=== PATIENT | female | born 1965 ===

== ENCOUNTER 2020-09-24 12:29 | Outpatient (REF) | payer OTHER, SELFPAY ==
--- NOTE | 2020-09-24 12:35 | MM_ITS ---
EXAMINATION: MM SCREENING DIGITAL BREAST TOMOSYNTHESIS, BILATERAL CLINICAL INFORMATION: Screening. Asymptomatic. The lifetime risk of breast cancer based on the Tyrer-Cuzick Model is 7%. COMPARISON: Mammography: 02/05/2019, 02/13/2017, 03/13/2015 TECHNIQUE: Digital breast tomosynthesis is performed in both the craniocaudal and mediolateral oblique views along with computer-aided detection (CAD). Synthesized 2D images are generated from the tomosynthesis. FINDINGS: There are scattered areas of fibroglandular density (ACR BI-RADS breast composition Category b). The right breast is unremarkable. There is no interval mass or architectural abnormality. Neither breast shows abnormal calcifications. The bilateral axilla and skin contours are unremarkable. Left CC view shows subtle nodular asymmetric density just under 5 mm with question of fine radiating lines. This may correspond to parenchymal asymmetry mid upper breast on MLO view. Patient will be recalled for additional imaging. MM/MM tomosynthesis screening BI IMPRESSION: 1. Left: Subtle focal nodular asymmetry upper outer quadrant with question of radiating lines. 2. Right: No mammographic evidence of malignancy. ASSESSMENT: BI-RADS 0: Incomplete - Need Additional Imaging Evaluation RECOMMENDATION: 1. Additional views of the left breast (3-D rolled CC x2, 3-D spot ML). 2. Targeted ultrasound if warranted after review of the additional views. 3. Radiology department staff will contact the patient for additional imaging. This patient's information was entered into a reminder system with a target due date for their next mammogram.
== END 2020-09-24 12:30 | disposition home or self-care (01) ==
LOC: HO.MAMMO 12:29
PROVIDERS: PCP Internal Medicine; Visit Provider Internal Medicine
DX: Z12.31 Encounter for screening mammogram for malignant neoplasm of breast (principal)
CPT/HCPCS: 77063; 77067

== ENCOUNTER 2020-10-18 14:35 | Outpatient (REF) | payer OTHER, SELFPAY ==
--- NOTE | 2020-10-18 14:39 | MM_ITS ---
EXAMINATION: MM DIAGNOSTIC DIGITAL TOMOSYNTHESIS, LEFT US TARGETED BREAST, LEFT CLINICAL INFORMATION: Density left breast. COMPARISON: Mammography: 09/24/2020 and studies dating back to 03/13/2015. TECHNIQUE: Digital breast tomosynthesis is performed. 2D images are generated from the tomosynthesis. The following views are obtained: rolled medial and lateral craniocaudal views. Spot compression views in 90-degree mediolateral view. Targeted left breast ultrasound. FINDINGS: The breasts are almost entirely fatty (ACR BI-RADS breast composition category A). There is a 5 mm partially spiculated mass at approximately the 1 o'clock position, 7 cm from the nipple. Targeted left breast ultrasound demonstrated an approximately 4 x 5 x 3 mm hypoechoic lesion which is taller than it is wide and has some distal sound shadowing and no distal sound enhancement. Ultrasound-guided core biopsy is recommended. This lies at approximately the 1 o'clock position 7 cm from the nipple. Results are discussed with the patient at time of visit. Referring provider's office notified by breast center navigator. MM/MM tomosynthesis added views L IMPRESSION: 5 mm suspicious lesion approximately 1 o'clock position of the left breast. ASSESSMENT: BI-RADS 4: Suspicious RECOMMENDATION: Ultrasound-guided core biopsy left breast lesion.
--- NOTE | 2020-10-18 14:40 | US_ITS ---
EXAMINATION: US DIAGNOSTIC ULTRASOUND BREAST, LEFT CLINICAL INFORMATION: Density. COMPARISON: 10/18/2020 mammography and studies dating back to 03/13/2015. TECHNIQUE: Ultrasound of the breast is performed with real-time rashid scale imaging and color Doppler. FINDINGS: Targeted left breast ultrasound demonstrated an approximately 4 x 5 x 3 mm hypoechoic lesion which is taller than it is wide and has some distal sound shadowing and no distal sound enhancement. Ultrasound-guided core biopsy is recommended. This lies at approximately the 1 o'clock position 7 cm from the nipple. Results are discussed with the patient at time of visit. Referring provider's office notified by breast center navigator. US/US breast LT limited IMPRESSION: 5 mm suspicious lesion approximately 1 o'clock position of the left breast. ASSESSMENT: BI-RADS 4: Suspicious RECOMMENDATION: Ultrasound-guided core biopsy left breast lesion.
== END 2020-10-18 14:36 | disposition home or self-care (01) ==
LOC: HO.MAMMO 14:35
PROVIDERS: Visit Provider Internal Medicine
DX: N64.9 Disorder of breast, unspecified (principal)
CPT/HCPCS: 76642; 77061; 77065

== ENCOUNTER 2020-10-26 09:08 | Outpatient (REF) | payer OTHER, SELFPAY ==
--- NOTE | 2020-10-26 | MM_ITS ---
EXAMINATION: ULTRASOUND GUIDED CORE BIOPSY BREAST, LEFT POST PROCEDURE DIGITAL MAMMOGRAM, LEFT CLINICAL INFORMATION: 4 mm hypoechoic nodule with posterior shadowing 1:00 left breast. COMPARISON: Mammography 09/24/2020, 10/18/2020, ultrasound left breast 10/18/2020. FINDINGS: Proper informed consent is obtained from the patient after discussion of the procedure, potential risks and complications, and alternatives. Patient was given an opportunity for questions. The patient appeared to understand. The patient consented to the procedure and signed the consent form. GUIDANCE: Ultrasound-guided; aseptic technique. LESION: 4 mm hypoechoic nodule with mildly irregular margins left breast 1:00. APPROACH: Lateral medial. ANESTHESIA: 10 mL 1% lidocaine. DERMATOTOMY: Single skin emilia dermatotomy performed. NEEDLE: 14-gauge Achieve core biopsy device with 13.5-gauge co-axial guide needle. CORES: 8. Given the small size, additional cores obtained to optimize sampling. CLIP: HydroMARK; shape: butterfly. POST PROCEDURE UNILATERAL DIGITAL MAMMOGRAM: The post biopsy mammogram is performed in separate room using separate digital mammography equipment from the biopsy procedure. CC and ML views are obtained. There are scattered areas of fibroglandular density (breast composition category: b). The clip marker is in position and corresponds to the nodule on recent mammography. The ultrasound lesion and mammographic lesion are concordant. No gross hematoma. The patient tolerated the procedure well. No immediate complications. Home instructions reviewed with the patient. Final pathology results are pending. MM/MM diagnostic mammo unilat LT IMPRESSION: 1. Status post ultrasound-guided core biopsy left breast. 2. Clip placed: HydroMARK; shape: butterfly. 3. Pathology pending. An addendum report will be issued.
--- NOTE | 2020-10-26 09:16 | US_ITS ---
EXAMINATION: ULTRASOUND GUIDED CORE BIOPSY BREAST, LEFT POST PROCEDURE DIGITAL MAMMOGRAM, LEFT CLINICAL INFORMATION: 4 mm hypoechoic nodule with posterior shadowing 1:00 left breast. COMPARISON: Mammography 09/24/2020, 10/18/2020, ultrasound left breast 10/18/2020. FINDINGS: Proper informed consent is obtained from the patient after discussion of the procedure, potential risks and complications, and alternatives. Patient was given an opportunity for questions. The patient appeared to understand. The patient consented to the procedure and signed the consent form. GUIDANCE: Ultrasound-guided; aseptic technique. LESION: 4 mm hypoechoic nodule with mildly irregular margins left breast 1:00. APPROACH: Lateral medial. ANESTHESIA: 10 mL 1% lidocaine. DERMATOTOMY: Single skin emilia dermatotomy performed. NEEDLE: 14-gauge Achieve core biopsy device with 13.5-gauge co-axial guide needle. CORES: 8. Given the small size, additional cores obtained to optimize sampling. CLIP: HydroMARK; shape: butterfly. POST PROCEDURE UNILATERAL DIGITAL MAMMOGRAM: The post biopsy mammogram is performed in separate room using separate digital mammography equipment from the biopsy procedure. CC and ML views are obtained. There are scattered areas of fibroglandular density (breast composition category: b). The clip marker is in position and corresponds to the nodule on recent mammography. The ultrasound lesion and mammographic lesion are concordant. No gross hematoma. The patient tolerated the procedure well. No immediate complications. Home instructions reviewed with the patient. Final pathology results are pending. US/US breast ndl core biopsy LT IMPRESSION: 1. Status post ultrasound-guided core biopsy left breast. 2. Clip placed: HydroMARK; shape: butterfly. 3. Pathology pending. An addendum report will be issued.
== END 2020-10-26 09:09 | disposition home or self-care (01) ==
LOC: HO.MAMMO 09:08
PROVIDERS: Radiology Diagnostic Radiology; Visit Provider Surgery
DX: R92.8 Other abnormal and inconclusive findings on diagnostic imaging of breast (principal)
CPT/HCPCS: 19083; 36415; 77065; 88305; 88360; 88374; 88377; 99202

== ENCOUNTER → 2020-10-31 08:59 | Outpatient (BNVA) | payer OTHER, SELFPAY | PROVIDERS: PCP Internal Medicine; Visit Provider Surgery | DX: D05.12 Intraductal carcinoma in situ of left breast (principal) | CPT/HCPCS: 99212 ==

== ENCOUNTER 2020-11-12 06:36 | Day surgery (SDC) | payer OTHER, SELFPAY ==
[2020-11-05 15:16] VITALS: BMI 31.8
--- NOTE | 2020-11-09 09:56 | HO.ANESPROP2 ---
Documented by User: Shital Rivera 11/09/20 10:02 HPI - Anesthesia Eval Consult details Narrative: 55yo F for Left Sentinal Node Biopsy and Needle Loc [facility] Past Medical History Medical History (Updated 11/12/20 @ 10:19 by Gina Krishnamurthy) Chest pain, atypical VASQUEZ (dyspnea on exertion) GERD (gastroesophageal reflux disease) History of iron deficiency anemia Hyperparathyroidism Hypertension Surgical History Surgical History History of dental surgery Hx of appendectomy Hx of parathyroidectomy Social History Social History Are you a primary congregational care pastor to a significant other at home: No Alcohol intake: never Smoking Status: Never smoker Second Hand Smoke Exposure: No Use of substances other than those prescribed or required for medical reasons: No Advance Directives: No Advance Directives Information Provided: No Advance Directives on File: No Narrative Narrative: Summer 2019 w/u for CP was negative. Thought r/t stress. Meds Allergies Allergy/AdvReac Type Severity Reaction Status Date / Time Penicillins [PENICILLINS] Allergy Intermediate rash Verified 11/12/20 07:26 IV dye Allergy Unknown Unknown Uncoded 11/05/20 14:59 Home Medications Medication Instructions Recorded Confirmed Type diazepam 1 tab PO BEDTIME PRN 11/05/20 11/05/20 History escitalopram oxalate 1 tab PO DAILY 11/05/20 11/05/20 History Exam Exam Date and Time: November 09, 2020 0956 Height,Weight and Vital Signs: Height 5 ft 5 in Weight 86.636 kg Narrative Narrative: EKG 05/2020 NSR @ 70 old septal infarct Stress ECHO 05/2020 Nml Echo 05/2020 Nml Assessment and Plan Assessment Anesthesia Assessment: Chart Reviewed Documented by User: Gina Krishnamurthy 11/12/20 10:21 PMFSH Past Medical History Medical History (Updated 11/12/20 @ 10:19 by Gina Krishnamurthy) Chest pain, atypical VASQUEZ (dyspnea on exertion) GERD (gastroesophageal reflux disease) History of iron deficiency anemia Hyperparathyroidism Hypertension Family History Family history of problems with anesthesia: No Surgical History Surgical History History of dental surgery Hx of appendectomy Hx of parathyroidectomy History of Problems with Anesthesia: No Social History Social History Are you a primary congregational care pastor to a significant other at home: No Alcohol intake: never Smoking Status: Never smoker Second Hand Smoke Exposure: No Use of substances other than those prescribed or required for medical reasons: No Advance Directives: No Advance Directives Information Provided: No Advance Directives on File: No Meds Allergies Allergy/AdvReac Type Severity Reaction Status Date / Time Penicillins [PENICILLINS] Allergy Intermediate rash Verified 11/12/20 07:26 IV dye Allergy Unknown Unknown Uncoded 11/05/20 14:59 Home Medications Medication Instructions Recorded Confirmed Type diazepam 1 tab PO BEDTIME PRN 11/05/20 11/05/20 History escitalopram oxalate 1 tab PO DAILY 11/05/20 11/05/20 History Exam Height,Weight and Vital Signs: Vital Signs Temp Pulse Resp BP Pulse Ox 11/12/20 07:26 97.4 F 73 16 125/80 98 Airway Mallampati Class: II TM Dist: >3cm Neck ROM: Full Loose/Missing/Broken Teeth: No Heart: RRR Lungs: CTAB Assessment and Plan Assessment Anesthesia Assessment: Anesthesia Plan Discussed and Chart Reviewed Final Anesthetic Review NPO: Yes ASA Class: II Final Preanesthetic Review: No Changes in Pt Med Stat, Meds/Allgs Chart Reviewed, Consent Obtained/Reviewed and Anes Risks/Benef Reviewed Patient Risk: Low Procedure Risk: Low Assessment/Block/Sedation in SS: Assess/Block/Sedation-SS Anesthetic Plan Anesthetic Plan: GA Disposition: Standard PACU
[2020-11-12] VITALS (11 sets, daily range): BP systolic 125–143; BP diastolic 77–98; PULSE 65–81; RESP 12–20; TEMP 36.3–36.7; O2SAT 94–99
--- NOTE | 2020-11-12 07:00 | NM_ITS ---
EXAMINATION: NM LYMPH SCINTIGRAPHY CLINICAL INFORMATION: Left breast invasive ductal carcinoma. COMPARISON: None TECHNIQUE: Following explaining left breast sentinel node procedure, benefits and risk, a written consent was obtained from the patient by Dr. Mosqueda. The area around the breast was cleaned and draped in usual sterile manner. 0.5 mCi of 90 9M technetium lymphocytic device in 4 equal doses was injected in 4 quadrants around the areola and imaging obtained 30 minutes later. Patient tolerated procedure extremely well. FINDINGS: There is isotope activity seen in 4 quadrants around the breast. There is solitary lymph node seen along the left anterior axilla NM/NM sentinel node w imaging IMPRESSION: Solitary sentinel node seen in the left anterior axilla on left breast lymphoscintigraphy.
--- NOTE | 2020-11-12 07:38 | MM_ITS ---
EXAMINATION: MM MAMMOGRAM GUIDED NEEDLE LOCALIZATION BREAST, LEFT MM NEEDLE LOCALIZATION SPECIMEN FROM THE LEFT BREAST CLINICAL INFORMATION: Left breast neoplasm COMPARISON: October 26, 2020 and October 18, 2020 TECHNIQUE NEEDLE LOC: Proper informed consent is obtained from the patient after discussion of the procedure, potential risks and complications, and alternatives including declining the procedure today. Patient was given an opportunity for questions. The patient appeared to understand. The patient consented to the procedure and signed the consent form. GUIDANCE: Digital mammography. APPROACH: Superior. TARGET: Clip. ANESTHESIA: lidocaine 1%: 3 mL. LOCALIZATION MARKER: Wasta MammaLok. 5 cm long The skin is prepped and local anesthesia administered. The needle is positioned and position assessed with mammography. The wire is hooked into position. [place] needle protector placed. The patient tolerated the procedure well and had no immediate complication. Following the procedure, 4% lidocaine ointment was administered to the left areola and covered with Tegaderm in anticipation of nuclear lymphoscintigraphy injection for sentinel lymph node mapping. TECHNIQUE SPECIMEN RADIOGRAPH: Imaging of the excised specimen is performed using digital mammography in 1 view. FINDINGS SPECIMEN RADIOGRAPH: The specimen shows the needle and hookwire are delivered intact. The biopsy clip is identified in the specimen. Results were called to Dr. Donaldo Garzon in the operating room at the time of imaging. MM/MM needle loc LT IMPRESSION: 1. Status post left breast needle localization with wire hooked into position. 2. Post operative specimen radiograph obtained.
--- NOTE | 2020-11-12 07:43 | MHC.SHP ---
Pre-Procedural Eval Section A The patient is an INPATIENT: No Changes since office visit: Yes Patient answered all questions; No Cold of Flu in the past 2 weeks, No New Medical Problems and No Changes in Medication The History & Physical has been completed within 30 days and I have reviewed it.: Yes Section B Chief Complaint: Invasive ductal carcinoma of breast, in situ Allergies: Allergies Allergy/AdvReac Type Severity Reaction Status Date / Time Penicillins [PENICILLINS] Allergy Intermediate rash Verified 11/12/20 07:26 IV dye Allergy Unknown Unknown Uncoded 11/05/20 14:59 Plan Diagnosis/Plan: Unchanged I have reviewed the history and physical and performed a pertinent physical examination on my patient. No changes have occurred unless specified.
--- NOTE | 2020-11-12 12:33 | PM.OP ---
Brief Operative Note Date of Service: 11/12/20 Pre-op diagnosis: Invasive ductal carcinoma breast left Post-op diagnosis: same Procedure: Lumpectomy needle localization, left sentinel node biopsy Implants: None Surgeon: Donaldo Garzon MD Anesthesia: GLMA Seaming Machine Operator: Dana Mcnamara Estimated blood loss (mL): 10 Pathology: other (Left breast lumpectomy, sentinel node x2) Condition: stable Disposition: PACU
--- NOTE | 2020-11-12 12:34 | P.OP_ITS ---
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 Subsequent stereotactic guided core biopsy revealed an invasive ductal carcinoma with ductal carcinoma in situ, ER/[place]/HER2 Rey positive. She presents today for lumpectomy with sentinel node biopsy. Operative findings: Patient was found to have the localizing clip and lesion within the specimen on specimen x-ray and on gross pathology. Specimen: Left breast lumpectomy, sentinel node x2 Estimated blood loss: 20 mL Complications: None Procedure details: Patient was brought to the OR placed in a supine position. After administering general anesthesia the patient's left breast was prepped with ChloraPrep and draped in a sterile fashion. A surgical time-out was called the consent confirmed. Patient received preoperative antibiotics and Venodyne boots were in place. Using the localizing needle as a guide a curvilinear incision was made in a transverse fashion in the upper outer quadrant of the left breast with a scalpel. This carried out through subcutaneous tissue. Superior inferior skin flaps were then created. A core of tissue around the localizing needle was then created beginning at the superior margin then working along the medial and lateral margins finally the inferior margin. The specimen was then marked with a long suture on the lateral margin a short suture on superior margin and a loop suture on the posterior margin. This was sent to x-ray for specimen radiology. The specimen was then sent to pathology for gross pathology. Attention was then directed to the left axilla which was scanned with a gamma probe. An area of increased reactivity was noted in the mid axilla. A curvilinear incision was made below the hairline of the left axilla. Incision was carried down through subcutaneous tissue pectoral fascia into the axillary contents. A single node with approximately 22,000 counts was identified and excised. This was sent as sentinel node 1. A 2nd smaller node was identified with approximately 15 counts sent as sentinel node 2. No further palpable or rad ioactive nodes were identified. At this point the axilla and the breast incisions were irrigated with saline solution and suctioned dry. Both wounds were checked for hemostasis. Clavipectoral fascia was then closed using interrupted 3 0 Polysorb sutures. Dermis was reapproximated using interrupted 3-0 Polysorb sutures. Skin was closed using a running subcuticular 4-0 Polysorb suture. The deep breast tissue and dermis were reapproximated using interrupted 3-0 Polysorb sutures. Skin was closed using a running subcuticular 4-0 Polysorb suture. Steri-Strips 2 x 2 gauze and Tegaderm were applied to both incisions. The patient tolerated the procedure well. Sponge, instrument, needle counts reported as correct. Patient was transferred to PACU in stable condition. Breast Valera Node Biopsy Substrate(s) used for sentinel node biopsy in the non-neoadjuvant setting: Radiotracer Substrate(s) used for sentinel node biopsy in the neoadjuvant setting: N/A All colored nodes or non-colored nodes present at the end of a dye filled lymphatic channel were removed, if dye was used as the substrate for localization: N/A All significantly radioactive nodes were removed, if radionuclide was used as the substrate for localization: Yes All palpably suspicious nodes were removed, if present: Yes If clips were placed in pathology-involved nodes, those nodes were identified and removed: N/A General Surg. - Synoptic Notes Breast Valera Node Biopsy Substrate(s) used for sentinel node biopsy in the non-neoadjuvant setting: Radiotracer Substrate(s) used for sentinel node biopsy in the neoadjuvant setting: N/A All colored nodes or non-colored nodes present at the end of a dye filled lymphatic channel were removed, if dye was used as the substrate for localization: N/A All significantly radioactive nodes were removed, if radionuclide was used as the substrate for localization: Yes All palpably suspicious nodes were removed, if present: Yes If clips were placed in pathology-involved nodes, those nodes were identified and removed: N/A
[2020-11-12] MEDS: Acetaminophen 325 MG TABLET 650 MG PO (13:25)
[2020-11-12] MEDS: oxyCODONE HCl Immed Release 5 MG TABLET PO (13:27)
[2020-11-12] MEDS: Ketorolac Tromethamine 15 MG/ML VIAL IVPUSH (13:27)
[2020-11-12] MEDS: fentaNYL citrate/PF 100 MCG/2 ML VIAL 25 MCG IVPUSH (13:28)
--- NOTE | 2020-11-12 14:24 | HO.POSTANES ---
Post Anesthesia Evaluation Post Anesthesia Evaluation Vital Signs: Vital Signs Temp Pulse Resp BP Pulse Ox 11/12/20 13:51 98.1 F 69 20 127/77 99 11/12/20 13:35 77 18 138/89 99 11/12/20 13:30 65 18 137/84 99 11/12/20 13:28 18 11/12/20 13:08 67 16 140/98 H 96 11/12/20 12:53 68 13 143/94 H 94 11/12/20 12:35 78 12 142/86 H 95 11/12/20 12:30 74 12 140/87 H 98 11/12/20 12:25 77 14 140/91 H 95 11/12/20 12:20 98.1 F 81 14 139/90 H 95 11/12/20 07:26 97.4 F 73 16 125/80 98 Anesthesia: General LMA Mental Status: Awake Pain Control: Satisfactory Nausea/Vomiting: None Hydration: Adequate Anesthesia-Related Issues: No Anes. Related Issues
== END 2020-11-12 14:30 | disposition home or self-care (01) ==
PROVIDERS: Absent Provider Radiology Diagnostic Radiology; PCP Internal Medicine; Visit Provider Surgery
PROC: (CPT 19301; principal; 2020-11-12 11:00)
PROC: (CPT 19301; 2020-11-12 11:00)
DX: C50.412 Malignant neoplasm of upper-outer quadrant of left female breast (principal); Z17.0 Estrogen receptor positive status [ER+]; I10 Essential (primary) hypertension; Z79.899 Other long term (current) drug therapy; Z88.0 Allergy status to penicillin; Z91.041 Radiographic dye allergy status
CPT/HCPCS: 19301; 38525; 19281; 78195; 88305; 88307; 88329; 88342; A4648; A9520; J0690; J1100; J1885; J2250; J2405; J3010

== ENCOUNTER → 2020-11-20 09:47 | Outpatient (BNVA) | payer OTHER, SELFPAY | PROVIDERS: PCP Internal Medicine; Visit Provider Surgery | DX: D05.12 Intraductal carcinoma in situ of left breast (principal) | CPT/HCPCS: 99212 ==

== ENCOUNTER 2020-11-29 09:15 | Day surgery (SDC) | payer OTHER, SELFPAY ==
--- NOTE | 2020-11-28 09:13 | P.CONAN_ITS ---
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) Past Medical History Medical History Chest pain, atypical VASQUEZ (dyspnea on exertion) GERD (gastroesophageal reflux disease) History of iron deficiency anemia Hyperparathyroidism Hypertension Surgical History Surgical History History of dental surgery Hx of appendectomy Hx of parathyroidectomy Social History Social History Alcohol intake: never Smoking Status: Never smoker Second Hand Smoke Exposure: No Use of substances other than those prescribed or required for medical reasons: No Advance Directives: No Advance Directives Information Provided: No Meds Allergies Allergy/AdvReac Type Severity Reaction Status Date / Time Penicillins [PENICILLINS] Allergy Intermediate rash Verified 11/12/20 07:26 IV dye Allergy Unknown Unknown Uncoded 11/05/20 14:59 Exam Exam Date and Time: November 28, 2020 0913 Narrative Narrative: EKG 05/2020 NSR @ 70 old septal infarct Stress ECHO 05/2020 Nml Echo 05/2020 Nml Assessment and Plan Assessment Anesthesia Assessment: Chart Reviewed Documented by User: Alvarado Parker 11/29/20 10:35 [facility] Past Medical History Medical History Chest pain, atypical VASQUEZ (dyspnea on exertion) GERD (gastroesophageal reflux disease) History of iron deficiency anemia Hyperparathyroidism Hypertension Family History Family history of problems with anesthesia: No Surgical History Surgical History History of dental surgery Hx of appendectomy Hx of parathyroidectomy History of Problems with Anesthesia: No Social History Social History Alcohol intake: never Smoking Status: Never smoker Second Hand Smoke Exposure: No Use of substances other than those prescribed or required for medical reasons: No Advance Directives: No Advance Directives Information Provided: No Meds Allergies Allergy/AdvReac Type Severity Reaction Status Date / Time Penicillins [PENICILLINS] Allergy Intermediate rash Verified 11/12/20 07:26 IV dye Allergy Unknown Unknown Uncoded 11/05/20 14:59 Exam Airway Mallampati Class: I TM Dist: >3cm Neck ROM: Full Assessment and Plan Assessment Anesthesia Assessment: Anesthesia Plan Discussed and Chart Reviewed Final Anesthetic Review NPO: Yes ASA Class: II Final Preanesthetic Review: No Changes in Pt Med Stat, Meds/Allgs Chart Reviewed, Consent Obtained/Reviewed and Anes Risks/Benef Reviewed Patient Risk: Low Procedure Risk: Low Anesthetic Plan Anesthetic Plan: MAC: and Agree w/ Assess. and Plan
[2020-11-29] VITALS (11 sets, daily range): BP systolic 118–142; BP diastolic 73–95; PULSE 66–79; RESP 16; TEMP 36.1; O2SAT 95–98; BMI 31.2
--- NOTE | 2020-11-29 10:15 | MHC.SHP ---
Pre-Procedural Eval Section A The patient is an INPATIENT: No Changes since office visit: Yes Patient answered all questions; No Cold of Flu in the past 2 weeks, No New Medical Problems and No Changes in Medication The History & Physical has been completed within 30 days and I have reviewed it.: Yes Section B Chief Complaint: Invasive ductal carcinoma of breast Allergies: Allergies Allergy/AdvReac Type Severity Reaction Status Date / Time Penicillins [PENICILLINS] Allergy Intermediate rash Verified 11/12/20 07:26 IV dye Allergy Unknown Unknown Uncoded 11/05/20 14:59 Plan Diagnosis/Plan: Unchanged I have reviewed the history and physical and performed a pertinent physical examination on my patient. No changes have occurred unless specified.
[2020-11-29] MEDS: vancomycin HCL 1,000 MG in 0.9 % Sodium Chloride 250 ML 270 MG IV (10:16)
[2020-11-29] MEDS: Lactated Ringers 1,000 ML 100 ML IVCONT (10:17)
--- NOTE | 2020-11-29 11:36 | W.PM.OPN ---
Operative Note Operative Note Date of Service: 11/29/20 Narrative: Preoperative diagnosis: Invasive ductal carcinoma left breast Postoperative diagnosis: Same Procedure: Wide excision left breast carcinoma Surgeon: Donaldo Garzon MD Release Of Information Clerk: Dana Mcnamara PA-C Anesthesia: Mac Indications for procedure: 55-year-old female presenting with recently diagnosed invasive ductal carcinoma status post lumpectomy with needle localization, sentinel node biopsy. Pathology revealed close margins of both the superior and inferior margins. Patient presents today for wider excision to assure negative margins Operative findings: Wide excision of previous lumpectomy performed. Dissection was wide of the previous excision margins. Specimen: Left breast carcinoma Estimated blood loss: 20 Complications: None Procedure details: Patient was brought to the OR placed in a supine position. After administering light sedation the patient's left breast and chest were prepped with ChloraPrep and draped in a sterile fashion. A surgical time-out was called the consent confirmed. Patient received preoperative antibiotics. Local anesthesia consisting of 1% lidocaine mixed with 0.25 % Sensorcaine with epinephrine was infiltrated around the previous excision site in the upper outer quadrant left breast. Incision was made through the previous incision and extended 1 cm on either side and carried down through subcutaneous tissue. Superior and inferior skin flaps were then created. The excision was dissected just below the dermis both superiorly and inferiorly. Dissection was then continued along the medial margin down to chest wall in a similar fashion the superior margin than inferior margins were dissected free down to chest wall. The lateral margin was last to be dissected down to chest wall. The specimen was then dissected off the chest wall and removed. Hemostasis was assured using electrocautery and free ties of 3-0 Polysorb. The specimen was sent to pathology for further examination. Wounds were irrigated with saline solution and suctioned dry. Deep breast tissue was then reapproximated using interrupted 3 0 Polysorb sutures. Superficial breast tissue and dermis reapproximated using interrupted 3 0 Polysorb sutures. Skin was then closed using a running subcuticular 4 0 Polysorb suture. Steri-Strips 2 x 2 gauze and Tegaderm were then applied. The patient tolerated the procedure well. Sponge, instrument, needle counts reported as correct. The patient was transferred to PACU in stable condition.
[2020-11-29] MEDS: oxyCODONE HCl Immed Release 5 MG TABLET PO (11:56)
[2020-11-29] MEDS: Acetaminophen 325 MG TABLET 650 MG PO (11:56)
[2020-11-29] MEDS: Ketorolac Tromethamine 15 MG/ML VIAL IVPUSH (11:58)
[2020-11-29] MEDS: fentaNYL citrate/PF 100 MCG/2 ML VIAL 25 MCG IVPUSH (12:03)
== END 2020-11-29 13:55 | disposition home or self-care (01) ==
PROVIDERS: PCP Internal Medicine; Visit Provider Surgery
PROC: (CPT 19301; principal; 2020-11-29 10:40)
DX: C50.912 Malignant neoplasm of unspecified site of left female breast (principal); I10 Essential (primary) hypertension; K21.9 Gastro-esophageal reflux disease without esophagitis; E21.3 Hyperparathyroidism, unspecified; Z79.899 Other long term (current) drug therapy; Z91.041 Radiographic dye allergy status; Z88.0 Allergy status to penicillin
CPT/HCPCS: 19301; 88307; 88329; J1885; J2250; J3010; J3370

== ENCOUNTER → 2020-12-07 11:10 | Outpatient (BNVA) | payer OTHER, SELFPAY | PROVIDERS: PCP Internal Medicine; Visit Provider Surgery | DX: D05.12 Intraductal carcinoma in situ of left breast (principal) | CPT/HCPCS: 99212 ==

== ENCOUNTER → 2021-01-01 08:29 | Outpatient (BNV) | payer OTHER, SELFPAY | PROVIDERS: PCP Internal Medicine; Visit Provider Internal Medicine | DX: C50.912 Malignant neoplasm of unspecified site of left female breast (principal) | CPT/HCPCS: 99204; 99213; 99214 ==

== ENCOUNTER → 2021-01-04 09:29 | Outpatient (BNVA) | payer OTHER, SELFPAY | PROVIDERS: PCP Internal Medicine; Visit Provider Surgery | DX: D05.12 Intraductal carcinoma in situ of left breast (principal) | CPT/HCPCS: 99212 ==

== ENCOUNTER → 2021-01-14 08:12 | Outpatient (BNVA) | payer OTHER, SELFPAY | PROVIDERS: PCP Internal Medicine; Visit Provider Physician Assistant ==

== ENCOUNTER 2021-01-18 08:25 | Day surgery (SDC) | payer OTHER, SELFPAY ==
--- NOTE | 2021-01-17 15:14 | HO.ANESPROP2 ---
Documented by User: Shital Rivera 01/17/21 15:16 HPI - Anesthesia Eval Consult details Narrative: 55yo F for Colonoscopy Recent breast CA dx - s/p lumpectomy with MAC 11/2020 PMFSH Active Problems Active Problems: All Active Problems (Updated 01/14/21 @ 08:38 by Ting Del Rio PA-C) Encounter for screening colonoscopy (Acute) Abnormal mammogram (Acute) Hypertension, essential (Acute) Breast cancer, left (Acute) Invasive ductal carcinoma of breast (Acute) Ductal carcinoma in situ of left breast (Acute) Past Medical History Medical History Breast cancer, left Chest pain, atypical VASQUEZ (dyspnea on exertion) GERD (gastroesophageal reflux disease) History of iron deficiency anemia Hyperparathyroidism Hypertension Surgical History Surgical History H/O breast surgery History of dental surgery Hx of appendectomy Hx of parathyroidectomy Social History Social History Household Members: Children Alcohol intake: never Smoking Status: Never smoker Second Hand Smoke Exposure: No Advance Directives: No Advance Directives Information Provided: Yes Meds Allergies Allergy/AdvReac Type Severity Reaction Status Date / Time Penicillins [PENICILLINS] Allergy Intermediate rash Verified 01/14/21 08:12 IV dye Allergy Unknown Unknown Uncoded 01/04/21 09:44 Home Medications Medication Instructions Recorded Confirmed Last Taken Type calcium 250 mg PO DAILY 01/01/21 01/14/21 Unknown History cholecalciferol (vitamin D3) 50 mcg PO DAILY 01/01/21 01/14/21 Unknown History [Vitamin D3] multivitamin 1 tab PO DAILY 01/01/21 01/14/21 Unknown History Exam Exam Date and Time: January 17, 2021 1514 Narrative Narrative: EKG 05/2020 NSR @ 72 old septal infarct Stress ECHO 05/2020 Nml Echo 05/2020 Nml Assessment and Plan Assessment Anesthesia Assessment: Chart Reviewed Documented by User: Kita Galvez 01/18/21 09:02 PMFSH Past Medical History Medical History Breast cancer, left Chest pain, atypical VASQUEZ (dyspnea on exertion) GERD (gastroesophageal reflux disease) History of iron deficiency anemia Hyperparathyroidism Hypertension Surgical History Surgical History H/O breast surgery History of dental surgery Hx of appendectomy Hx of parathyroidectomy Social History Social History Household Members: Children Alcohol intake: never Smoking Status: Never smoker Second Hand Smoke Exposure: No Advance Directives: No Advance Directives Information Provided: Yes Meds Allergies Allergy/AdvReac Type Severity Reaction Status Date / Time Penicillins [PENICILLINS] Allergy Intermediate rash Verified 01/14/21 08:12 IV dye Allergy Unknown Unknown Uncoded 01/04/21 09:44 Home Medications Medication Instructions Recorded Confirmed Last Taken Type calcium 250 mg PO DAILY 01/01/21 01/14/21 Unknown History cholecalciferol (vitamin D3) 50 mcg PO DAILY 01/01/21 01/14/21 Unknown History [Vitamin D3] multivitamin 1 tab PO DAILY 01/01/21 01/14/21 Unknown History Exam Airway Mallampati Class: II TM Dist: >3cm Neck ROM: Full Assessment and Plan Assessment Anesthesia Assessment: Anesthesia Plan Discussed and Chart Reviewed Final Anesthetic Review NPO: Yes ASA Class: II Final Preanesthetic Review: No Changes in Pt Med Stat, Meds/Allgs Chart Reviewed, Consent Obtained/Reviewed and Anes Risks/Benef Reviewed Patient Risk: Low Procedure Risk: Low Assessment/Block/Sedation in SS: Assess/Block/Sedation-SS Anesthetic Plan Anesthetic Plan: MAC: Disposition: Standard PACU
[2021-01-18 08:46] VITALS: BMI 33.6
[2021-01-18] MEDS: Lactated Ringers 1,000 ML 20 ML IVCONT (09:23)
--- NOTE | 2021-01-18 10:04 | W.PM.OPN ---
Operative Note Operative Note Date of Service: 01/18/21 Narrative: Pre-op diagnosis: Colon cancer screening Post-op diagnosis: other (Colon polyps, diverticulosis, hemorrhoid) Procedure: COLONOSCOPY TILL CECUM WITH BIOPSIES Consent: Indications for the procedure and potential complications of bleeding, perforation, reaction to medications and missed diagnosis were discussed with the patient and informed consent was obtained. Instrument: Olympus PCF H 190 L variable stiffness pediatric colonoscope Monitoring: Vital signs and clinical assessment, intermittent blood pressure monitoring, continuous EKG monitoring, Pulse oximetry and Carbon Dioxide monitoring were done throughout the procedure. Colon withdrawl time was 14 minutes. Procedure: The patient was placed in the left lateral decubitis position and pre-procedure medications were administered. After a digital rectal examination of the ano-rectum, the video colonoscope was inserted into the rectum and advanced through the colon to the cecum. The colonoscope was slowly withdrawn in a retrograde panoramic fashion and the colon mucosa was carefully examined including a retroflexed view of the rectum. Findings and interventions are described below. Procedure Difficulty: Without difficulty Findings: Terminal Ileum: Not evaluated Cecum: Normal Ascending Colon: Normal Transverse Colon: Two 2-3 mm diminutive appearing polyps removed with the cold biopsy Descending Colon: Normal Sigmoid Colon: 3-4 mm diminutive appearing polyp removed with the cold biopsy. Moderate diverticulosis Rectum: Normal Ano-rectum: Moderate internal hemorrhoids Colon preparation: Excellent Impression and Post Procedure Diagnosis: Colonoscopy Findings: Three small polyps removed Moderate diverticulosis seen in the sigmoid colon Moderate hemorrhoids on retroflexed exam. Plan: Await pathology results A letter will be sent to the patient with biopsy results Repeat Colonoscopy interval based on path results - in 3-5 years if polyps are adenomatous and 5 years due to personal history of breast cancer. Above findings were reviewed with the patient and colon polyps and diverticulosis handouts were given in the discharge area Surgeon: Troy Ace MD Anesthesia: MAC (Jenynfer Gaines CRNA) Instructor Substitute Cosmetology: Sosa Adler Estimated blood loss (mL): 0 Pathology: other (A. TRANSVERSE COLON POLYPS B. SIGMOID POLYP) Condition: stable Disposition: PACU
--- NOTE | 2021-01-18 10:04 | MHC.SHP ---
Pre-Procedural Eval Section A The patient is an INPATIENT: No Changes since office visit: Yes Patient answered all questions; No Cold of Flu in the past 2 weeks, No New Medical Problems and No Changes in Medication The History & Physical has been completed within 30 days and I have reviewed it.: Yes Section B Chief Complaint: Screening Allergies: Allergies Allergy/AdvReac Type Severity Reaction Status Date / Time Penicillins [PENICILLINS] Allergy Intermediate rash Verified 01/14/21 08:12 IV dye Allergy Unknown Unknown Uncoded 01/04/21 09:44 Plan I have reviewed the history and physical and performed a pertinent physical examination on my patient. No changes have occurred unless specified.
[2021-01-18 10:47] VITALS: BP 100/63; PULSE 72; RESP 16; TEMP 36.5; O2SAT 98
[2021-01-18 11:02] VITALS: BP 109/64; PULSE 61; RESP 16; TEMP 36.5; O2SAT 98
== END 2021-01-18 11:35 | disposition home or self-care (01) ==
PROVIDERS: PCP Internal Medicine; Visit Provider Internal Medicine Gastroenterology
PROC: 0DJD8ZZ Inspection of Lower Intestinal Tract, Via Natural or Artificial Opening Endoscopic (ICD-10-PCS; CPT 45378; principal; 2021-01-18 11:00)
DX: Z12.11 Encounter for screening for malignant neoplasm of colon (principal); D12.5 Benign neoplasm of sigmoid colon; K63.5 Polyp of colon; K57.30 Diverticulosis of large intestine without perforation or abscess without bleeding; K64.8 Other hemorrhoids; K21.9 Gastro-esophageal reflux disease without esophagitis; I10 Essential (primary) hypertension; C50.912 Malignant neoplasm of unspecified site of left female breast; Z88.0 Allergy status to penicillin; Z91.041 Radiographic dye allergy status; Z79.899 Other long term (current) drug therapy
CPT/HCPCS: 45380; 88305

== ENCOUNTER 2021-02-11 10:49 | Emergency (ER) | payer OTHER, SELFPAY ==
--- NOTE | ~2021-02-11 | XR_ITS ---
EXAMINATION: LUMBAR SPINE. BILATERAL RIBS. CLINICAL INFORMATION: Pain. COMPARISON: None TECHNIQUE: 3 views lumbar spine. Bilateral RIBS 3 views. FINDINGS: LUMBAR SPINE: There is normal lumbar lordosis. The vertebral heights, alignment and disc heights are normal. There is no visible acute fracture, dislocation or subluxation seen. The SI joints are symmetrical and normal. CHEST AND BILATERAL RIBS: Both lungs are fairly well-expanded and clear of acute process. The heart size and pulmonary vascularity is normal. Multiple views of bilateral ribs reveal no visible fracture or bony abnormality. The soft tissues are normal. XR/XR lumbar spine 2-3V IMPRESSION: Unremarkable lumbar spine exam. Unremarkable chest and bilateral ribs.
--- NOTE | ~2021-02-11 | XR_ITS ---
EXAMINATION: LUMBAR SPINE. BILATERAL RIBS. CLINICAL INFORMATION: Pain. COMPARISON: None TECHNIQUE: 3 views lumbar spine. Bilateral RIBS 3 views. FINDINGS: LUMBAR SPINE: There is normal lumbar lordosis. The vertebral heights, alignment and disc heights are normal. There is no visible acute fracture, dislocation or subluxation seen. The SI joints are symmetrical and normal. CHEST AND BILATERAL RIBS: Both lungs are fairly well-expanded and clear of acute process. The heart size and pulmonary vascularity is normal. Multiple views of bilateral ribs reveal no visible fracture or bony abnormality. The soft tissues are normal. XR/XR ribs BI 3V IMPRESSION: Unremarkable lumbar spine exam. Unremarkable chest and bilateral ribs.
--- NOTE | ~2021-02-11 | XR_ITS ---
EXAMINATION: XR SACRUM AND COCCYX CLINICAL INFORMATION: Fall. COMPARISON: None TECHNIQUE: 2 views of the sacrum and 2 views of the coccyx were obtained. FINDINGS: There are no fractures. No bone, joint or soft tissue abnormality is demonstrated. XR/XR sacrum coccyx min 2V IMPRESSION: Unremarkable sacrum and coccyx exam.
[2021-02-11 11:15] VITALS: BP 140/93; PULSE 73; RESP 18; TEMP 36.5; O2SAT 97; BMI 31.6
[2021-02-11] MEDS: Ibuprofen 800 MG TABLET PO (13:59)
--- NOTE | 2021-02-11 14:02 | ED.BACK ---
HPI - Back Pain/Injury General Chief Complaint: Back Pain/Injury Stated Complaint: back pain Time Seen by Provider: 02/11/21 12:48 Source: patient Mode of arrival: ambulatory Limitations: no limitations History of Present Illness HPI Narrative: Patient presents to ED for bilateral lower rib pain, lower back, and sacral coccyx pain. Patient states couple days ago she slipped on the stairs. Patient states she slid down her buttocks/back/and posterior ribs on the stairs. Patient denies hitting head or loss of consciousness. Patient is not on any blood thinners. Patient denies nausea, vomiting, chest pain, headache, abdominal pain, rectal bleeding, vomiting blood, or weakness Related Data Home Medications Medication Instructions Recorded Confirmed calcium 250 mg PO DAILY 01/01/21 01/14/21 cholecalciferol (vitamin D3) 50 mcg PO DAILY 01/01/21 01/14/21 [Vitamin D3] multivitamin 1 tab PO DAILY 01/01/21 01/14/21 Previous Rx's Medication Instructions Recorded Blood pressure monitor #1 ea 11/13/20 atenolol 50 mg tablet 50 mg PO DAILY 90 Days #90 tab 02/06/21 cyclobenzaprine 10 mg PO TID PRN #18 tab 02/11/21 naproxen 500 mg PO BID PRN #20 tab 02/11/21 Allergies Allergy/AdvReac Type Severity Reaction Status Date / Time Penicillins [PENICILLINS] Allergy Intermediate rash Verified 01/14/21 08:12 IV dye Allergy Unknown Unknown Uncoded 01/04/21 09:44 Review of Systems Review of Systems: Yes all other systems are reviewed and are negative Constitutional: Constitutional: Reports as per HPI and Reports no additional constitutional complaints Eyes: Eyes: Reports as per HPI and Reports no additional eye complaints ENT: Reports system reviewed and no additional complaints, except as documented and Reports as per HPI Cardiovascular: Cardiovascular: Reports as per HPI and Reports no additional cardiovascular complaints Comments: Bilateral lower rib pain after fall Respiratory: Respiratory: Reports as per HPI and Reports no additional respiratory complaints Gastrointestinal: Gastrointestinal: Reports as per HPI and Reports no additional gastrointestinal complaints Genitourinary: Genitourinary: Reports no additional female genitourinary complaints and Reports as per HPI Musculoskeletal: Musculoskeletal: Reports no additional musculoskeletal complaints, Reports as per HPI and Reports back pain Comments: Buttock pain Neurologic: Reports system reviewed and no additional complaints, except as documented and Reports as per HPI Psychiatric: Psychiatric: Reports no additional psychiatric complaints and Reports as per HPI [facility] Past Medical History Medical History Breast cancer, left Chest pain, atypical VASQUEZ (dyspnea on exertion) GERD (gastroesophageal reflux disease) History of iron deficiency anemia Hyperparathyroidism Hypertension Surgical History H/O breast surgery History of dental surgery Hx of appendectomy Hx of parathyroidectomy Social History Social History Household Members: Children Alcohol intake: never Smoking Status: Never smoker Second Hand Smoke Exposure: No Advance Directives: No Advance Directives Information Provided: No Physical Exam Vital Signs: Vital Signs: Last Vital Signs Temp 97.7 F 02/11/21 11:15 Pulse 73 02/11/21 11:15 Resp 18 02/11/21 11:15 BP 140/93 H 02/11/21 11:15 Pulse Ox 97 02/11/21 11:15 Body Mass Index 31.6 Const: General: cooperative, healthy appearing, comfortable, no acute distress, well developed, alert, awake and Physically active Orientation/consciousness: patient oriented x3 HENMT: Head: Yes normal to inspection, Yes No palpable skull fracture present, Yes normocephalic, Yes atraumatic and No abrasion Eyes: General: appearance normal, both eyes and all related structures Neck: Neck: Yes normal visual inspection, Yes full ROM, Yes no lymphadenopathy, Yes no meningeal signs, Yes trachea midline, Yes supple and No tender Chest: Other: Positive for bilateral lower rib pain on palpation. Negative for pleuritic chest pain Chest palpation & inspection: normal inspection of the chest Resp: Effort & Inspection: normal respiratory effort and able to speak in complete sentences Auscultation: clear to auscultation bilaterally Cardio: Jugular venous distension: no JVD Heart sounds: S1 normal heart sound present and S2 normal heart sound present GI: Inspection: Yes normal to inspection and No abdominal wall ecchymosis Palpation (GI): Soft to palpation, not firm, nontender, no guarding and not rigid : General: No CVA tenderness and Yes no CVA tenderness Back/Spine/Pelvis: Back: no CVA tenderness, No CVA tenderness and back tenderness (Lumbar sacral coccyx tenderness on palpation) Skin: General skin exam: no rashes or lesions noted and elasticity normal Neuro: General: patient oriented x3, gait normal, no meningeal signs and CN's II-XI intact bilaterally Cranial nerves: Yes CN's II-XII intact bilaterally Extrem: General: Yes normal to inspection and Yes full ROM Psych: Appearance: grossly normal, well kempt and not disheveled Course Course Course Narrative: Patient have ribs and lumbar and ankle x-ray. Reevaluation(s) Reevaluation #1: X-ray came back negative for fractures. Pain due to trauma. Presently not concerned for any PE or cardiac evaluation. Reevaluation #2: Patient does not need bed rest. Patient requested for me to write bed rest on her discharge papers so her son to help her in a house. MDM - Back Pain/Injury MDM Narrative Medical decision making narrative: Contusion Discharge Plan Discharge Clinical Impression: Contusion Patient Disposition: Home, Self-Care Instructions: Contusion in Adults (ED) Additional Instructions: Return to the ED immediately for swelling of lower extremities, calf pain, coughing up blood, chest pain on inspiration, shortness of breath, chest pain, abdominal pain, headache, dizziness, weakness, headache, dizziness, nausea, emesis or any other concerning symptoms. Images came back negative for fractures. Recommend bed rest. Prescriptions: New naproxen 500 mg tablet 500 mg PO BID PRN (Reason: pain) Qty: 20 RF: 0 cyclobenzaprine 10 mg tablet 10 mg PO TID PRN (Reason: back pain) Qty: 18 RF: 0 No Action (DME) Blood pressure monitor See Rx Instructions .Route .MEDSUPPLY Qty: 1 RF: 0 atenolol 50 mg tablet 50 mg PO DAILY 90 Days Qty: 90 RF: 1 multivitamin Tablet 1 tab PO DAILY RF: 0 calcium 250 mg Tablet 250 mg PO DAILY RF: 0 cholecalciferol (vitamin D3) [Vitamin D3] 50 mcg (2,000 unit) Tablet 50 mcg PO DAILY RF: 0 Interventions: ED Discharge Assessment Last Done: 02/11/21 14:49 Discharge Date/Time: 02/11/21 14:50 Print Language: Greenlandic
== END 2021-02-11 14:50 | disposition home or self-care (01) ==
PROVIDERS: Emergency Provider Emergency Medicine
DX: S30.0XXA Contusion of lower back and pelvis, initial encounter (principal); W10.9XXA Fall (on) (from) unspecified stairs and steps, initial encounter; Y93.89 Activity, other specified; Y92.039 Unspecified place in apartment as the place of occurrence of the external cause; Y99.9 Unspecified external cause status
CPT/HCPCS: 71110; 72100; 72220; 99283

== ENCOUNTER → 2021-03-26 09:32 | Outpatient (BNVA) | payer OTHER, SELFPAY | PROVIDERS: Visit Provider Surgery | DX: C50.912 Malignant neoplasm of unspecified site of left female breast (principal); D05.12 Intraductal carcinoma in situ of left breast | CPT/HCPCS: 99212 ==

== ENCOUNTER 2021-04-26 07:59 | Outpatient (REF) | payer OTHER, SELFPAY ==
--- NOTE | ~2021-04-26 | MM_ITS ---
EXAMINATION: MM DIAGNOSTIC DIGITAL BREAST TOMOSYNTHESIS, LEFT CLINICAL INFORMATION: Invasive ductal cancer and ductal carcinoma in situ, status post lumpectomy 11/12/2020, RT completed February 2021. COMPARISON: Mammography: Needle localization and 11/12/2020, mammography 10/26/2020, 10/18/2020, targeted left breast ultrasound 10/18/2020. TECHNIQUE: Digital breast tomosynthesis is performed in both the craniocaudal and mediolateral oblique views along with computer-aided detection (CAD). Synthesized 2D images are generated from the tomosynthesis. Additional magnification left CC and magnification left ML views are obtained. FINDINGS: There are scattered areas of fibroglandular density (ACR BI-RADS breast composition Category b). This exam represents first mammography since surgery and radiation. There is moderate scar upper outer left breast and smaller scar left axilla. Otherwise, no interval mass or architectural abnormality or abnormal calcifications. The remainder left breast is unremarkable. Results are discussed with the patient at time of visit. MM/MM tomosynthesis diagnostic LT IMPRESSION: Postsurgical changes left breast. ASSESSMENT: BI-RADS 2: Benign RECOMMENDATION: Annual bilateral mammography, due in 6 months. This patient's information was entered into a reminder system with a target due date for their next mammogram.
== END 2021-04-26 08:00 | disposition home or self-care (01) ==
LOC: HO.MAMMO 07:59
PROVIDERS: Visit Provider Surgery
DX: C50.912 Malignant neoplasm of unspecified site of left female breast (principal)
CPT/HCPCS: 77061; 77065

== ENCOUNTER → 2021-06-04 11:30 | Outpatient (BNVA) | payer OTHER, SELFPAY | PROVIDERS: PCP Internal Medicine; Referring Provider Internal Medicine; Visit Provider Surgery | DX: C50.912 Malignant neoplasm of unspecified site of left female breast (principal); Z79.811 Long term (current) use of aromatase inhibitors | CPT/HCPCS: 99212 ==

== ENCOUNTER 2021-11-04 08:34 | Outpatient (REF) | payer OTHER, SELFPAY ==
--- NOTE | ~2021-11-04 | MM_ITS ---
EXAMINATION: MM DIAGNOSTIC DIGITAL BREAST TOMOSYNTHESIS, BILATERAL CLINICAL INFORMATION: Invasive ductal cancer and DCIS upper outer left breast status post lumpectomy 11/12/2020. RT completed February 2021. Due for yearly. COMPARISON: Mammography: 04/26/2021 and prior exams dating back to 03/13/2015 TECHNIQUE: Digital breast tomosynthesis is performed in both the craniocaudal and mediolateral oblique views along with computer-aided detection (CAD). Synthesized 2D images are generated from the tomosynthesis. Additional magnification left CC and magnification left ML views are obtained. FINDINGS: There are scattered areas of fibroglandular density (ACR BI-RADS breast composition Category b). Post therapy changes left breast are again noted with mild reduced breast size and scarring upper outer quadrant. Scarring is slightly decreased from prior exam 04/26/2021. Neither breast shows interval mass or architectural abnormality or developing density. No abnormal calcifications. The axilla are unremarkable. Results are discussed with the patient at time of visit. MM/MM tomosynthesis diagnostic BI IMPRESSION: No mammographic evidence of malignancy. Post therapy changes left breast. ASSESSMENT: BI-RADS 2: Benign RECOMMENDATION: Annual bilateral mammography. This patient's information was entered into a reminder system with a target due date for their next mammogram.
== END 2021-11-04 08:35 | disposition home or self-care (01) ==
LOC: HO.MAMMO 08:34
PROVIDERS: Visit Provider Surgery
DX: R92.8 Other abnormal and inconclusive findings on diagnostic imaging of breast (principal)
CPT/HCPCS: 77062; 77066

== ENCOUNTER → 2022-01-02 09:17 | Outpatient (BNVA) | payer OTHER, SELFPAY | PROVIDERS: PCP Internal Medicine; Visit Provider Surgery | DX: C50.912 Malignant neoplasm of unspecified site of left female breast (principal) | CPT/HCPCS: 99212 ==

== ENCOUNTER 2022-01-04 18:54 | Emergency (ER) | payer OTHER, SELFPAY ==
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
[2022-01-04 19:05] VITALS: BP 133/84; PULSE 79; RESP 16; TEMP 36.9; O2SAT 96; BMI 33.5
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
== END 2022-01-04 23:13 | disposition home or self-care (01) ==
PROVIDERS: Emergency Provider Internal Medicine; PCP Internal Medicine
DX: S06.0X0A Concussion without loss of consciousness, initial encounter (principal); S13.4XXA Sprain of ligaments of cervical spine, initial encounter; V43.52XA Car driver injured in collision with other type car in traffic accident, initial encounter; R51.9 Headache, unspecified; Y93.89 Activity, other specified; Y92.410 Unspecified street and highway as the place of occurrence of the external cause; Y99.9 Unspecified external cause status
CPT/HCPCS: 70450; 72125; 99284

== ENCOUNTER 2022-01-17 17:39 | Emergency (ER) | payer OTHER, SELFPAY ==
--- NOTE | 2022-01-17 | ECG_ITS ---
Test Reason : MEDICATION REACTION Blood Pressure : / mmHG Vent. Rate : 094 BPM Atrial Rate : 094 BPM P-R Int : 150 ms QRS Dur : 082 ms QT Int : 336 ms P-R-T Axes : 052 -33 023 degrees QTc Int : 420 ms Normal sinus rhythm Left axis deviation Abnormal ECG When compared with ECG of 29-MAR-2020 00:30, Criteria for Septal infarct are no longer Present Referred By: Generic ED Physician Electronically Signed By:EVANS MUÑIZ MD
[2022-01-17 17:45] VITALS: BP 149/82; PULSE 108; RESP 18; TEMP 36.6; O2SAT 97; BMI 29.9
[2022-01-17 18:49] LABS: Basophils Percent Auto 0.5 % (0-2); Eosinophils Absolute Auto 0.5 X10*3/uL (0.0-0.4); Eosinophils Percent Auto 8.1 % (0-4); Hemoglobin 12.5 g/dl (12.0-16.0); Imm Gran Abs Auto 0.01 X10*3/uL (0.00-0.03); Imm Gran Pct Auto 0.2 % (0.0-0.4); Lymphocytes Absolute Auto 1.1 X10*3/uL (1.2-4.9); Lymphocytes Percent Auto 18.5 % (20-40); MANUAL DIFF FLAG NO; Mean Corpuscular HGB Conc 32.1 g/dl (31.0-35.0); Mean Corpuscular Hemoglobin 27.8 pg (27.0-33.0); Mean Corpuscular Volume 86.7 fL (80.0-98.0); Mean Platelet Volume 8.5 fL (9.4-12.3); Monocytes Absolute Auto 0.7 X10*3/uL (0.1-1.2); Monocytes Percent Auto 12.9 % (2-11); Neutrophils Absolute Auto 3.4 x10*3/uL (2.0-8.3); Neutrophils Percent Auto 59.8 % (45-73); Platelet Count 263 X10*3/uL (160-400); Red Cell Distribution Width 12.8 % (11.0-16.0); White Blood Count 5.7 X10*3/uL (4.8-10.8)
[2022-01-17 19:04] LABS: Alanine Aminotransferase 63 U/L (0-31); Albumin Level 4.4 g/dL (3.5-5.0); Alkaline Phosphatase 102 U/L (39-117); Anion Gap 16 (12-20); Aspartate Amino Transferase 34 U/L (5-31); Bilirubin Total 0.2 mg/dL (0.0-1.0); Blood Urea Nitrogen 8 mg/dL (9-16); Calcium 9.4 mg/dL (8.4-10.2); Carbon Dioxide 26 mmol/L (22-29); Chloride 104 mmol/L (96-108); Creatinine Clr Calc Pharmacy 68.5; Estimated Glomerular Filt Rate 54; Glucose Random 128 mg/dL (60-115); Potassium 4.5 mmol/L (3.3-5.1); Sodium 141 mmol/L (135-145); Total Protein 7.7 g/dL (6.5-8.0)
[2022-01-17 22:28] VITALS: BP 135/84; PULSE 86; RESP 18; TEMP 37.7; O2SAT 95
--- NOTE | 2022-01-17 22:49 | PC.NURSE ---
this rn ordered add on trop from initial lab draw, called lab and asked to ensure that is enough of a blood sample from earlier. per manolo in lab, should be enough blood to run trop.
[2022-01-17 23:15] LABS: Troponin-I High Sensitivity < 3.5 ng/L (<3.5-17.0)
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
[2022-01-18 00:19] VITALS: BP 138/88; PULSE 80; RESP 18; O2SAT 96
--- NOTE | 2022-01-18 00:20 | PC.NURSE ---
[employer] aware of pt's visual acuity test. Per [employer], no need to give PIV fluids. Pt speaking in complete clear sentences, RR even and unlabored on RA, VSS. Pt skin warm dry and normal in appearance. Pt ambulating with steady independent gait.
== END 2022-01-18 00:41 | disposition home or self-care (01) ==
PROVIDERS: Emergency Provider Emergency Medicine; PCP Internal Medicine
DX: F07.81 Postconcussional syndrome (principal); R42 Dizziness and giddiness; Z79.899 Other long term (current) drug therapy
CPT/HCPCS: 36415; 80053; 84484; 85025; 93005; 96360; 99284

== ENCOUNTER 2022-06-23 09:59 | Outpatient (REF) | payer OTHER, SELFPAY ==
[2022-06-23 11:11] LABS: COVID-19 Test Negative (Negative); IDNOW Serial# 9DD0AD1C
== END 2022-06-23 10:00 | disposition home or self-care (01) ==
LOC: HO.LAB 09:59
PROVIDERS: Visit Provider Internal Medicine
DX: Z20.822 Contact with and (suspected) exposure to COVID-19 (principal)
CPT/HCPCS: 87635; C9803

== ENCOUNTER → 2022-07-08 09:42 | Outpatient (BNVA) | payer OTHER, SELFPAY | PROVIDERS: PCP Internal Medicine; Referring Provider Internal Medicine; Visit Provider Surgery | DX: C50.912 Malignant neoplasm of unspecified site of left female breast (principal) | CPT/HCPCS: 99212 ==

== ENCOUNTER 2022-11-06 11:44 | Outpatient (REF) | payer OTHER, SELFPAY ==
--- NOTE | ~2022-11-06 | MM_ITS ---
EXAMINATION: BONE DENSITOMETRY CLINICAL INDICATION: Osteoporosis. COMPARISON: Baseline BD dated 01/15/2016. TECHNIQUE: Using a GreenLight DXA System (software version: 13.1) manufactured by [employer], dual-energy x-ray absorptiometry was performed of the lumbar spine, left hip, and left forearm radius 33%. The images are of good technical quality. Summary results are attached. FINDINGS: AP SPINE L1-L4: Current: BMD 0.808 g/cm2, Z-score -2.9, T-score -3.1, osteoporosis, 3.6% decrease from baseline (<5% change is not significant). Baseline: BMD 0.838 g/cm2. LEFT FEMUR, NECK: Current: BMD 0.774 g/cm2, Z-score -1.3, T-score -1.9, osteopenia. Baseline: BMD 0.797 g/cm2. LEFT FEMUR, TOTAL: Current: BMD 0.917 g/cm2, Z-score -0.5, T-score -0.7, normal, 7.5% increase from baseline (<5% change is not significant). Baseline: BMD 0.853 g/cm2. LEFT FOREARM RADIUS 33%: BMD 0.712 g/cm2, Z-score -1.4, T-score -1.9, osteopenia, 2.5% decrease from baseline (<5% change is not significant). Baseline: BMD 0.730 g/cm2. IDENTIFIED RISK FACTORS: Menopause, osteoporosis, rheumatoid arthritis, hyperparathyroidism. HISTORY OF FRACTURE: None listed. MEDICATIONS: Multivitamin, vitamin D. MM/XR DEXA appendicular skeleton IMPRESSION: 1. DIAGNOSIS: Osteoporosis based on the lowest T-score value of -3.1 in the lumbar spine applying World Health Organization criteria. 2. 10-YEAR FRACTURE RISK PREDICTION, FRAX: According to the guidelines, FRAX calculation should only be performed on patients in the osteopenia bone density category. Therefore, FRAX was not performed on this patient. 3. Treatment Recommendations: NOF guidelines recommend consideration for treatment in postmenopausal women and men age 50 and older presenting with the following: -A hip or vertebral (clinical or morphometric) fracture. -T-score less than or equal to -2.5 at the femoral neck or spine after appropriate evaluation to exclude secondary causes. -Low bone mass at the hip or spine and a 10-year fracture probability by FRAX of greater than or equal to 3% for hip fracture or greater than or equal to 20% for major osteoporotic fracture based on the [place] adapted WHO algorithm. 4. Other Recommendations: All treatment decisions require clinical judgment and consideration of individual patient factors, including patient preferences, comorbidities, previous drug use, risk factors not captured in the FRAX model (e.g. frailty, falls, vitamin D deficiency, increased bone turnover, interval significant decline in bone density) and possible under or overestimation of fracture risk by FRAX. Additional medical evaluation for secondary cause of low bone mineral density may be appropriate. FUTURE SCAN RECOMMENDATION: People with diagnosed cases of osteoporosis or at high risk for fracture should have regular bone mineral density tests. For patients eligible for Medicare, routine testing is allowed once every 2 years. The testing frequency can be increased to one year for patients who have rapidly progressing disease, those who are receiving or discontinuing medical therapy to restore bone mass, or have additional risk factors.
--- NOTE | ~2022-11-06 | MM_ITS ---
EXAMINATION: MM DIAGNOSTIC DIGITAL BREAST TOMOSYNTHESIS, BILATERAL CLINICAL INFORMATION: Due for yearly. 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 COMPARISON: Mammography: 11/04/2021, 04/26/2021, 11/12/2020, 10/26/2020, 10/18/2020, 09/24/2020 TECHNIQUE: Digital breast tomosynthesis is performed in both the craniocaudal and mediolateral oblique views along with computer-aided detection (CAD). Synthesized 2D images are generated from the tomosynthesis. Additional magnification left CC and magnification left ML views are obtained. FINDINGS: There are scattered areas of fibroglandular density (ACR BI-RADS breast composition Category b). There are post therapy changes on the left with scarring upper outer quadrant, less prominent when compared with prior exams. Neither breast shows interval mass or developing density or interval architectural abnormality. No abnormal calcifications. No significant changes. Results are provided to the patient at time of visit by the technologist. MM/MM tomosynthesis diagnostic BI IMPRESSION: -No mammographic evidence of malignancy. -Post therapy changes left breast, decreased. ASSESSMENT: BI-RADS 2: Benign RECOMMENDATION: Annual bilateral mammography. This patient's information was entered into a reminder system with a target due date for their next mammogram.
== END 2022-11-06 11:45 | disposition home or self-care (01) ==
LOC: HO.MAMMO 11:44
PROVIDERS: PCP Internal Medicine; Visit Provider Internal Medicine Medical Oncology
DX: C50.912 Malignant neoplasm of unspecified site of left female breast (principal); M81.0 Age-related osteoporosis without current pathological fracture
CPT/HCPCS: 77062; 77066; 77081

== ENCOUNTER → 2023-01-22 08:47 | Outpatient (BNVA) | payer OTHER, SELFPAY | PROVIDERS: PCP Internal Medicine; Visit Provider Surgery | DX: C50.912 Malignant neoplasm of unspecified site of left female breast (principal) | CPT/HCPCS: 99212 ==

== ENCOUNTER 2023-05-13 20:43 | Emergency (ER) | payer OTHER, SELFPAY ==
--- NOTE | ~2023-05-13 | CT_ITS ---
EXAMINATION: CTA OF THE HEAD/NECK CLINICAL INFORMATION: Left-sided weakness COMPARISON: 01/04/2022 TECHNIQUE: A routine non contrast head CT was performed followed by a 70 mL bolus of Omnipaque 350. Subsequent multidetector helical imaging was performed of the head and neck. Delayed post contrast imaging was also performed through the head. Multiplanar reformats and MIP were also obtained. Internal carotid artery stenoses are assessed in accordance with NASCET criteria unless otherwise indicated. This CT examination was performed using dose optimization techniques as appropriate, variously including the following: *Automated exposure control *Adjustment of mA and/or kV according to patient size (this includes techniques or standardized protocols for targeted exams where dose is matched to indication/reason for exam; i.e. extremities or head) *Use of iterative reconstruction technique DLP: 2042 mGy-cm. FINDINGS: CT HEAD: There is no evidence of acute intracranial hemorrhage or territorial infarction. No abnormal mass effect or midline shift is seen. Todd to white matter differentiation is well preserved. No extra-axial fluid collections are identified. No suspicious leptomeningeal or parenchymal enhancement on the post-contrast images. No hydrocephalus. No significant volume loss. There is no abnormal attenuation within the brain parenchyma. The osseous structures and soft tissues are normal. Mild mucoperiosteal thickening of bilateral ethmoid air cells. The mastoid air cells and visualized portions of the paranasal sinuses are otherwise well aerated. CTA NECK: The aortic arch is of normal caliber and the origins of the great vessels are patent without evidence of significant stenosis. The cervical portion of the vertebral arteries are patent bilaterally. No luminal irregularities in the common carotid arteries and the carotid bifurcations are patent bilaterally. The cervical portion of the internal carotid arteries are of normal caliber. The laryngeal structures and pharyngeal mucosal spaces are unremarkable. The oral cavity appears normal. The parotid and submandibular glands are normal. No pathologically enlarged lymph nodes. 0.7 cm hypoattenuating nodule in the right lobe of the thyroid gland. No follow-up recommended. The lung apices are clear without evidence of pneumothorax. Spinal alignment is maintained. Mild cervical spondylosis is noted. CTA HEAD: The intradural portion of the vertebral arteries are of normal caliber. The basilar, superior cerebellar, and posterior communicating arteries are patent. The posterior, middle, and anterior cerebral arteries are of normal caliber without evidence of significant luminal irregularity. No definite intracranial aneurysms. CT/CT angio head neck IMPRESSION: 1. No acute intracranial finding. 2. No large vessel occlusion or flow-limiting stenosis.
[2023-05-13 20:46] VITALS: BP 143/84; PULSE 82; RESP 18; TEMP 36.8; O2SAT 98; BMI 32.3
--- NOTE | 2023-05-13 20:58 | ED.NEUROSD ---
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 in remission been having left sided facial weakness for last 4 weeks also noticed slight weakness in the left hand and feels cold on the left side no history of multiple sclerosis or lupus , has history of tick bites but no rash patient under stress very anxious on arrival blood pressure 143/84 pulse rate 82 afebrile Related Data Home Medications Medication Instructions Recorded Confirmed cholecalciferol (vitamin D3) 50 50 mcg PO DAILY 01/01/21 03/31/23 mcg (2,000 unit) tablet (Vitamin D3) multivitamin 1 tab PO DAILY 01/01/21 03/31/23 blood sugar diagnostic (FreeStyle #10 ea 01/02/22 03/31/23 Lite Strips) blood-glucose meter (FreeStyle #1 ea 01/02/22 03/31/23 Lite Meter kit) lancets 28 gauge (FreeStyle #100 ea 01/02/22 03/31/23 Lancets) escitalopram oxalate 20 mg tablet 20 mg PO DAILY 07/08/22 03/31/23 gabapentin 300 mg capsule 300 mg PO TID 07/08/22 03/31/23 Previous Rx's Medication Instructions Recorded Blood pressure monitor #1 ea 11/13/20 cyclobenzaprine 10 mg tablet 10 mg PO TID PRN back pain #18 tabs 02/11/21 atenolol 50 mg tablet 50 mg PO DAILY 90 days #90 tabs 09/17/21 anastrozole 1 mg tablet 1 mg PO DAILY #90 tabs 11/26/21 ibuprofen 800 mg tablet 800 mg PO Q6H PRN pain #60 tabs 01/04/22 carbamide peroxide 6.5 % ear drops 5 drp otic (ears) DAILY 4 days #15 05/13/23 (Debrox) mL carboxymethylcellulose sodium 1 % 1 drp ophthalmic-Left QID #15 mL 05/13/23 eye drops (Artificial Tears (carboxymethylcellulose)) prednisone 20 mg tablet 60 mg PO DAILY #21 tabs 05/13/23 valacyclovir 1 gram tablet 1,000 mg PO TID #21 tabs 05/13/23 (Valtrex) Allergies Allergy/AdvReac Type Severity Reaction Status Date / Time Penicillins [PENICILLINS] Allergy Intermediate rash Verified 03/31/23 08:54 IV dye Allergy Unknown Unknown Uncoded 03/31/23 08:54 Review of Systems Review of Systems: Yes all other systems are reviewed and are negative [facility] Past Medical History Medical History Breast cancer, left Chest pain, atypical VASQUEZ (dyspnea on exertion) GERD (gastroesophageal reflux disease) History of iron deficiency anemia Hyperparathyroidism Hypertension Prediabetes Surgical History H/O breast surgery History of dental surgery Hx of appendectomy Hx of parathyroidectomy Family History Family History Other No family history of cancer Social History Social History Household Members: Children [facility] Are you a primary memory care program director to a significant other at home: No Do you presently have visiting nurse or other home services: No Alcohol intake: never Patient Tobacco Use Status: Never used Tobacco Second Hand Smoke Exposure: No Advance Directives: No Advance Directives Information Provided: No service: No Current occupational status: unemployed Physical Exam Vital Signs: Vital Signs: Last Vital Signs Temp 99.0 F 05/13/23 22:02 Pulse 73 05/13/23 22:02 Resp 18 05/13/23 22:02 BP 133/83 05/13/23 22:02 Pulse Ox 97 05/13/23 22:02 O2 Del Method Room Air 05/13/23 22:02 BMI result Body Mass Index 32.3 Appearance: Alert. Oriented X3. No acute distress. Eyes: PERRLA, No Nystagmus ENT: Pharynx normal. Oral Mucosa moist left-sided partial facial weakness Neck: Normal inspection. Neck supple. CVS: Normal heart rate and rhythm. Pulses normal. Respiratory: No respiratory distress. Equal air entry bilateral, no wheezing/rales/rhonchi Abdomen: Soft and nontender. Bowel sounds are present, no mass palpable, no CVA tenderness Skin: Skin warm and dry. Normal skin color. Normal skin turgor. Extremities: No lower extremity edema. No calf tenderness Neuro: Oriented X 3. No motor deficit. No sensory deficit.No cerebellar signs , left-sided lower motor neuron 7 nerve palsy, with signs of improvement on the forehead Medications Administered Discontinued Medications Generic Name Dose Route Start Last Admin Trade Name Robertq PRN Reason Stop Dose Admin Iohexol 70 ml 05/13/23 22:04 05/13/23 22:04 Iohexol 350 Mg/Ml 100 Ml Infus..Btl IV 05/13/23 22:05 70 ml ONCE ONE Administration Prednisone 60 mg 05/13/23 22:13 05/13/23 22:30 Prednisone 20 Mg Tablet PO 05/13/23 22:14 60 mg ONCE ONE Administration Valacyclovir HCl 1,000 mg 05/13/23 22:13 05/13/23 22:30 Valacyclovir Hcl 1,000 Mg Tablet PO 05/13/23 22:14 1,000 mg ONCE ONE Administration Medical Decision Making Medical Decision Making [facility] Narrative: Patient clinically with Laguna's palsy CT head neck was negative for acute pathology discharge patient home on Valtrex/prednisone eyedrops Differential Diagnosis CVA/Laguna's palsy/lupus/Lyme disease Lab Data [facility] Lab Attestation statement: I reviewed the patient's lab results. 05/13/23 21:06 05/13/23 21:06 Labs: Lab Results 05/13/23 05/13/23 05/13/23 Range/Units 21:06 21:06 21:06 WBC 8.5 (4.8-10.8) X10*3/uL RBC 4.32 (4.20-5.50) X10*6/uL Hgb 11.9 L (12.0-16.0) g/dl Hct 37.1 (37.0-47.0) % MCV 85.9 (80.0-98.0) fL MCH 27.5 (27.0-33.0) pg MCHC 32.1 (31.0-35.0) g/dl RDW 13.2 (11.0-16.0) % Plt Count 318 (160-400) X10*3/uL MPV 8.6 L (9.4-12.3) fL Immature Gran % (Auto) 0.4 (0.0-0.4) % Neut % (Auto) 55.7 (45-73) % Lymph % (Auto) 29.7 (20-40) % [place] % (Auto) 7.4 (2-11) % Eos % (Auto) 6.0 H (0-4) % Baso % (Auto) 0.8 (0-2) % Lymph # (Auto) 2.5 (1.2-4.9) X10*3/uL [place] # (Auto) 0.6 (0.1-1.2) X10*3/uL Eos # (Auto) 0.5 H (0.0-0.4) X10*3/uL Baso # (Auto) 0.1 (0.0-0.2) X10*3/uL Abs Immat Gran (auto) 0.03 (0.00-0.03) X10*3/uL Absolute Neuts (auto) 4.8 (2.0-8.3) x10*3/uL Absolute Nucleated RBC 0.000 (0.0-0.012) X10*3/uL Nucleated RBC % (auto) 0.0 (0.0-0.2) /100WBC ESR 16 (0-20) MM/HR Sodium 142 (135-145) mmol/L Potassium 4.1 (3.3-5.1) mmol/L Chloride 106 (96-108) mmol/L Carbon Dioxide 23 (22-29) mmol/L Anion Gap 17 (12-20) BUN 10 (9-16) mg/dL Creatinine 0.85 (0.5-1.4) mg/dL Estim Creat Clear Calc 81.0 Estimated GFR > 60 Random Glucose 135 H (60-115) mg/dL Calcium 10.0 (8.4-10.2) mg/dL Total Bilirubin 0.2 (0.0-1.0) mg/dL AST 21 (5-31) U/L ALT 33 H (0-31) U/L Alkaline Phosphatase 98 (39-117) U/L C-Reactive Protein 0.22 (< or = 0.50) mg/dL Total Protein 7.7 (6.5-8.0) g/dL Albumin 4.4 (3.5-5.0) g/dL NIH Stroke Scale Internal: Initial- Upon Arrival Level of Consciousness: Alert Level of Consciousness Questions: Answers both questions correctly Level of Consciousness Commands: Performs both tasks correctly Best Gaze: Normal Visual: No visual loss Facial Palsy: Normal Motor Arm (Right): No drift Motor Arm (Left): No drift Motor Leg (Right): No drift Motor Leg (Left): No drift Limb Ataxia: Absent Sensory: Normal Best Language: No aphasia Dysarthia: Normal Extinction and Inattention: No abnormality Score: 0 Discharge Plan Discharge Clinical Impression: Laguna's palsy Patient Disposition: Home, Self-Care Instructions: Laguna Palsy (ED) Additional Instructions: Take medication as prescribed Tear drops for eyes Follow-up with neurologist Facial massage exercises as advised Prescriptions: New prednisone 20 mg tablet 60 mg PO DAILY Qty: 21 0RF Artificial Tears (cmc) 1 % drops 1 drp ophthalmic-Left QID Qty: 15 0RF Debrox 6.5 % drops 5 drp otic (ears) DAILY 4 Days Qty: 15 0RF valacyclovir [Valtrex] 1 gram tablet 1,000 mg PO TID Qty: 21 0RF No Action (DME) Blood pressure monitor See Rx Instructions .Route .MEDSUPPLY Qty: 1 0RF Rx Instructions: As directed atenolol 50 mg tablet 50 mg PO DAILY 90 Days Qty: 90 1RF multivitamin Tablet 1 tab PO DAILY cholecalciferol (vitamin D3) [Vitamin D3] 50 mcg (2,000 unit) Tablet 50 mcg PO DAILY anastrozole 1 mg Tablet 1 mg PO DAILY Qty: 90 4RF cyclobenzaprine 10 mg tablet 10 mg PO TID PRN (Reason: back pain) Qty: 18 0RF Rx Instructions: side effect is drowsiness. Do not take at work or while driving. ibuprofen 800 mg tablet 800 mg PO Q6H PRN (Reason: pain) Qty: 60 0RF (DME) lancets [FreeStyle Lancets] 28 gauge misc See Rx Instructions topical DAILY Qty: 100 Rx Instructions: As directed (DME) FreeStyle Lite Strips Strip See Rx Instructions .ROUTE DAILY Qty: 10 Rx Instructions: As directed (DME) blood-glucose meter [FreeStyle Lite Meter] Kit See Rx Instructions .ROUTE .MEDSUPPLY Qty: 1 Rx Instructions: As directed gabapentin 300 mg capsule 300 mg PO TID escitalopram oxalate 20 mg tablet 20 mg PO DAILY Referrals: Dennis Gomez MD [Physician] - 3 days
--- NOTE | 2023-05-13 21:02 | ECG_ITS ---
Test Reason : CHEST PAIN Blood Pressure : / mmHG Vent. Rate : 076 BPM Atrial Rate : 076 BPM P-R Int : 152 ms QRS Dur : 084 ms QT Int : 394 ms P-R-T Axes : 040 -23 025 degrees QTc Int : 443 ms Normal sinus rhythm Low voltage QRS Septal infarct , age undetermined Abnormal ECG When compared with ECG of 17-JAN-2022 18:44, Septal infarct is now Present Referred By: Yuri Cohen Electronically Signed By:ARLIN EVERETT
--- NOTE | 2023-05-13 21:09 | PC.NURSE ---
20G IV placed R AC, labs drawn.
[2023-05-13 21:10] LABS: MANUAL DIFF FLAG NO
[2023-05-13 21:14] LABS: Basophils Absolute Auto 0.1 X10*3/uL (0.0-0.2); Basophils Percent Auto 0.8 % (0-2); Eosinophils Absolute Auto 0.5 X10*3/uL (0.0-0.4); Hematocrit 37.1 % (37.0-47.0); Hemoglobin 11.9 g/dl (12.0-16.0); Imm Gran Abs Auto 0.03 X10*3/uL (0.00-0.03); Imm Gran Pct Auto 0.4 % (0.0-0.4); Lymphocytes Absolute Auto 2.5 X10*3/uL (1.2-4.9); Lymphocytes Percent Auto 29.7 % (20-40); Mean Corpuscular HGB Conc 32.1 g/dl (31.0-35.0); Mean Corpuscular Hemoglobin 27.5 pg (27.0-33.0); Mean Corpuscular Volume 85.9 fL (80.0-98.0); Mean Platelet Volume 8.6 fL (9.4-12.3); Monocytes Absolute Auto 0.6 X10*3/uL (0.1-1.2); Monocytes Percent Auto 7.4 % (2-11); Neutrophils Absolute Auto 4.8 x10*3/uL (2.0-8.3); Neutrophils Percent Auto 55.7 % (45-73); Platelet Count 318 X10*3/uL (160-400); Red Blood Count 4.32 X10*6/uL (4.20-5.50); Red Cell Distribution Width 13.2 % (11.0-16.0); White Blood Count 8.5 X10*3/uL (4.8-10.8)
[2023-05-13 21:25] LABS: Alanine Aminotransferase 33 U/L (0-31); Albumin Level 4.4 g/dL (3.5-5.0); Alkaline Phosphatase 98 U/L (39-117); Anion Gap 17 (12-20); Aspartate Amino Transferase 21 U/L (5-31); Bilirubin Total 0.2 mg/dL (0.0-1.0); Blood Urea Nitrogen 10 mg/dL (9-16); C Reactive Protein 0.22 mg/dL (< or = 0.50); Carbon Dioxide 23 mmol/L (22-29); Chloride 106 mmol/L (96-108); Estimated Glomerular Filt Rate > 60; Glucose Random 135 mg/dL (60-115); Potassium 4.1 mmol/L (3.3-5.1); Sodium 142 mmol/L (135-145); Total Protein 7.7 g/dL (6.5-8.0)
[2023-05-13 22:02] VITALS: BP 133/83; PULSE 73; RESP 18; TEMP 37.2; O2SAT 97
[2023-05-13] MEDS: iohexoL 350 MG/ML 100 ML INFUS..BTL 70 ML IV (22:04)
[2023-05-13 22:08] LABS: Erythrocyte Sedimentation Rate 16 MM/HR (0-20)
[2023-05-13] MEDS: predniSONE 20 MG TABLET 60 MG PO (22:30)
[2023-05-13] MEDS: valACYclovir HCL 1,000 MG TABLET 1000 MG PO (22:30)
[2023-05-14 00:01] VITALS: BP 132/87; PULSE 75; RESP 14; TEMP 36.6; O2SAT 96
--- NOTE | 2023-05-14 00:04 | PC.NURSE ---
iv removed at discharge. pt calm and cooperative. vss. pt provided with discharge plan. pt verbalized understanding of discharge plan.pt ambulatory at discharge
[2023-05-16 01:50] LABS: Lyme Abs Screen <0.90 index
== END 2023-05-14 00:05 | disposition home or self-care (01) ==
PROVIDERS: Emergency Provider Internal Medicine; PCP Internal Medicine
DX: G51.0 Bell's palsy (principal); R07.89 Other chest pain; M54.2 Cervicalgia; Z79.899 Other long term (current) drug therapy
CPT/HCPCS: 36415; 70496; 70498; 80053; 85025; 85652; 86140; 86617; 86618; 93005; 99284; Q9967

== ENCOUNTER → 2023-05-13 21:02 | Outpatient (BNV) | payer OTHER, SELFPAY | PROVIDERS: Emergency Provider Internal Medicine; PCP Internal Medicine; Visit Provider Internal Medicine | DX: R07.9 Chest pain, unspecified (principal); R94.31 Abnormal electrocardiogram [ECG] [EKG] | CPT/HCPCS: 93010 ==

== ENCOUNTER 2023-07-14 08:50 | Outpatient (AMB) | payer OTHER, SELFPAY ==
--- NOTE | 2023-07-14 08:51 | A.OFFVIS_ITS ---
Intake Vital Signs 3 07/14/23 09:00 Height 5 ft 5 in Weight 190 lb 7.67 oz BMI 31.7 BP 110/70 Blood Pressure Location Lt brachial Position Sitting Intake Visit Reasons: 6 mth follow up breast exam Intake Note: Patient is seen in office for 6 month follow up visit, breast exam. Patient c/o: admits to left breast pain on and off, is seen Dr Small and is taking anastrozole and atenelol and is concerns about hair growth Tentmaker Required: No Technology Architect: Technology Architect Present Accompanied by: Self / Same As Patient Allergies Penicillins [PENICILLINS] Allergy (Intermediate, Verified 07/14/23 09:02) rash IV dye Allergy (Unknown, Uncoded 07/14/23 09:02) Unknown HPI HPI Comments 2 History of Present Illness0 Details 58-year-old female patient returning for breast cancer follow-up examination. 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 She underwent a left breast lumpectomy with sentinel node biopsy of the left breast on 11/12/2020. Pathology confirmed a 0.9 cm invasive ductal carcinoma with satellite carcinoma in-situ, grade 2, ER/NC positive, HER2 Rey negative, 0/2 sentinel nodes revealed metastatic disease (pT1 N0 MX). The ductal carcinoma extended to within microns of the margin therefore on 11/29/2020 she underwent a re-excision which revealed benign breast parenchyma with no residual carcinoma or in-situ carcinoma. Radiation therapy was performed at [facility] and completed on 02/27/2021. She was evaluated by Dr. Small. Oncotype DX score was 15 with distant recurrence of 4%. Benefits of chemotherapy was less than 1%. She was started on letrozole 2.5 mg daily but subsequently switched to anastrozole 1 mg p.o. daily. Her most recent mammogram of 11/06/2022 revealed no mammographic malignant. Post therapy changes were noted in left breast (BI-RADS 2). She complains of side effects from the anastrozole including left arm bone pain, depression and anxiety. She does not feel she continue with this medication because of the severe side effects. Bone pain is felt mainly at the wrist. She is currently on Prolia. [facility] Medical History Breast cancer, left Chest pain, atypical VASQUEZ (dyspnea on exertion) GERD (gastroesophageal reflux disease) History of iron deficiency anemia Hyperparathyroidism Hypertension Prediabetes Surgical History H/O breast surgery History of dental surgery Hx of appendectomy Hx of parathyroidectomy Family History Other No family history of cancer Social History Household Members: Children Housing: [facility] Are you a primary post acute care nurse to a significant other at home: No Do you presently have visiting nurse or other home services: No Alcohol intake: never Patient Tobacco Use Status: Never used Tobacco Second Hand Smoke Exposure: No service: No Current occupational status: unemployed Review of Systems Const All systems reviewed & are unremarkable except as noted in HPI and below Denies nipple discharge Skin/Breast Details: Pigment change left breast Reports breast skin changes, Denies breast pain, Denies breast mass and Denies nipple discharge Psych Reports as per HPI and Reports mood swings Physical Exam Vital Signs: Last Vital Signs BP 110/70 07/14/23 09:00 BMI result Body Mass Index 31.7 Const General: comfortable and well developed Nutritional Appearance: well nourished Orientation/consciousness: patient oriented x3 Limitations: no limitations Neck Neck: Yes no lymphadenopathy, Yes trachea midline and Yes no JVD Chest Other: Left breast with a well-healed incision in the upper outer quadrant, no new skin change, nipple retraction, nipple discharge, palpable mass, or enlarged lymph nodes. Right breast with no skin change, nipple retraction, nipple discharge, palpable mass, or enlarged lymph node. Chest palpation & inspection: normal inspection of the chest Chest/axillae images: 2 1. Incision upper outer quadrant left breast Resp Effort & Inspection: normal respiratory effort, no audible wheezes and no cough Skin General skin exam: no rashes or lesions noted Neuro General: patient oriented x3 Extrem General: Yes no clubbing, cyanosis or edema Assessment & Plan Assessment & Plan (1) Invasive ductal carcinoma of breast: Code(s): C50.919 - Malignant neoplasm of unspecified site of unspecified female breast Qualifiers: Laterality: left Qualified Code(s): C50.912 - Malignant neoplasm of unspecified site of left female breast Plan 58-year-old female patient returning for follow-up breast examination after diagnosed with 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 Examination today reveals no suspicious findings in either breast. Her most recent mammogram of 11/06/2022 revealed no mammographic evidence of recurrent disease. She continues to do well and should return in 6 months for follow-up examination. Follow-up mammogram recommended 1 year (scheduled for 11/12/2022). She should call sooner for any concerns. She is concerned about the side effects of her current medication (anastrozole). She does not feel she can continue the medication due to the severe depression. She may require a medication holiday. Coding Level of Care Code Est Pt Level 3 (31166) Diagnoses Infiltrating ductal carcinoma of left breast C50.912 Laterality: left
[2023-07-14 09:00] VITALS: BP 110/70; BMI 31.7
== END 2023-07-14 09:18 | disposition home or self-care (01) ==
PROVIDERS: Visit Provider Surgery
DX: C50.912 Malignant neoplasm of unspecified site of left female breast (principal)
CPT/HCPCS: 99213

== ENCOUNTER → 2023-07-14 08:50 | Outpatient (BNVA) | payer OTHER, SELFPAY | PROVIDERS: Visit Provider Surgery | DX: C50.912 Malignant neoplasm of unspecified site of left female breast (principal); Z79.811 Long term (current) use of aromatase inhibitors; Z17.0 Estrogen receptor positive status [ER+] | CPT/HCPCS: 99212 ==

== ENCOUNTER 2023-11-12 12:00 | Outpatient (REF) | payer OTHER, SELFPAY ==
--- NOTE | ~2023-11-12 | MM_ITS ---
EXAMINATION: MM DIAGNOSTIC DIGITAL BREAST TOMOSYNTHESIS, BILATERAL CLINICAL INFORMATION: Patient due for bilateral screening. Year 3 follow-up status post lumpectomy for left breast invasive ductal carcinoma and DCIS, performed 11/12/2020. RT completed February 2021. No complaints. COMPARISON: Mammography: 11/06/2022, 11/04/2021, 03/27/2021, 10/18/2020, 09/24/2020, and dating back to 2017. TECHNIQUE: Digital breast tomosynthesis is performed in both the craniocaudal and mediolateral oblique views along with computer-aided detection (CAD). Synthesized 2D images are generated from the tomosynthesis. In addition to standard views, spot magnification 2-D CC and ML views were obtained of the left breast in the region of lumpectomy scar. FINDINGS: There are scattered areas of fibroglandular density (ACR BI-RADS breast composition Category b). There are stable post therapy changes on the left in the upper outer quadrant with surgical scar marker present. This has continued to evolve and become less dense and less apparent. No suspicious masses, suspicious microcalcifications, or new areas of architectural distortion are present in the left breast to suggest disease recurrence. The right breast demonstrates no suspicious findings. There are no suspicious masses, suspicious grouped calcifications, or areas of architectural distortion. The parenchymal pattern in both breasts is stable from prior exams. No axillary abnormalities are evident in either breast. MM/MM tomosynthesis diagnostic BI IMPRESSION: No findings in either breast suspicious for malignancy. Stable benign treatment related changes upper outer left breast continuing to evolve as expected. This completes 3 years of post surgical surveillance of the left breast. Recommend the patient return to routine annual screening mammography to include both breasts. ASSESSMENT: BI-RADS BI-RADS 2 - Benign Findings RECOMMENDATION: 1 year F/U Results were provided to the patient at time of visit by the technologist. This patient's information was entered into a reminder system with a target due date for their next mammogram.
== END 2023-11-12 12:01 | disposition home or self-care (01) ==
LOC: HO.MAMMO 12:00
PROVIDERS: Visit Provider Internal Medicine
DX: Z85.3 Personal history of malignant neoplasm of breast (principal)
CPT/HCPCS: 77062; 77066

== ENCOUNTER → 2023-11-12 13:00 | Outpatient (BNV) | payer OTHER, SELFPAY | PROVIDERS: Visit Provider Radiology Diagnostic Radiology | DX: Z12.31 Encounter for screening mammogram for malignant neoplasm of breast (principal) | CPT/HCPCS: 77063; 77067 ==

== ENCOUNTER 2024-07-12 08:39 | Outpatient (AMB) | payer OTHER, SELFPAY ==
--- NOTE | 2024-07-12 08:51 | A.OFFVIS_ITS ---
Vital Signs 3 07/12/24 08:56 Height 5 ft 5 in Weight 192 lb BMI 31.9 BP 133/77 Blood Pressure Location Rt brachial Position Sitting Pulse 75 Intake Visit Reasons: ? Left breast lump Intake Note: This patient presents for a left breast lump. Pt c/o; reports she feels a lump underneath left breast, reports no redness or discharge from nipple. Social Work Job Titles Required: No Accompanied by: Self / Same As Patient Allergies Penicillins [PENICILLINS] Allergy (Intermediate, Verified 07/12/24 08:57) rash IV dye Allergy (Unknown, Uncoded 07/12/24 08:57) Unknown Medication List - Last Reconciled 07/12/24 by Donaldo Garzon MD anastrozole 1 mg PO DAILY atenolol 50 mg PO DAILY 90 days [Blood pressure monitor As directed] blood sugar diagnostic (FreeStyle Lite Strips) As directed blood-glucose meter (FreeStyle Lite Meter kit) As directed carbamide peroxide 6.5% (Debrox) 5 drps otic (ears) DAILY 4 days cholecalciferol (vitamin D3) (Vitamin D3) 50 mcg PO DAILY cyclobenzaprine 10 mg PO TID PRN gabapentin 300 mg PO TID ibuprofen 800 mg PO Q6H PRN lancets (FreeStyle Lancets) As directed multivitamin 1 tab PO DAILY valacyclovir (Valtrex) 1,000 mg PO TID HPI Comments Details: 59-year-old female patient returning for breast cancer follow-up examination. 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 She underwent a left breast lumpectomy with sentinel node biopsy of the left breast on 11/12/2020. Pathology confirmed a 0.9 cm invasive ductal carcinoma with satellite carcinoma in-situ, grade 2, ER/WI positive, HER2 Rey negative, 0/2 sentinel nodes revealed metastatic disease (pT1 N0 MX). The ductal carcinoma extended to within microns of the margin therefore on 11/29/2020 she underwent a re-excision which revealed benign breast parenchyma with no residual carcinoma or in-situ carcinoma. Radiation therapy was performed at [facility] and completed on 02/27/2021. She was evaluated by Dr. Small. Oncotype DX score was 15 with distant recurrence of 4%. Benefits of chemotherapy was less than 1%. She was started on letrozole 2.5 mg daily but subsequently switched to anastrozole 1 mg p.o. daily. Her most recent mammogram of 11/12/2023 revealed no mammographic evidence of malignancy. Post therapy changes were noted in left breast (BI-RADS 2). She reports a lump located in the lower inner quadrant of the left breast which he recently noted on self examination. She noted the lump to be tender to palpation. She denies any skin changes or nipple discharge. [facility] Medical History Prediabetes Breast cancer, left VASQUEZ (dyspnea on exertion) Chest pain, atypical Hyperparathyroidism History of iron deficiency anemia GERD (gastroesophageal reflux disease) Hypertension Surgical History H/O breast surgery Hx of parathyroidectomy Hx of appendectomy History of dental surgery Family History Other No family history of cancer Social History Household Members: Children Housing: Condominium Are you a primary home health care respiratory therapist to a significant other at home: No Do you presently have visiting nurse or other home services: No Alcohol intake: never Patient Tobacco Use Status: Never used Tobacco Second Hand Smoke Exposure: No service: No Current occupational status: unemployed Review of Systems Const All systems reviewed & are unremarkable except as noted in HPI and below Denies nipple discharge Skin/Breast Details: Pigment change left breast Reports breast skin changes, Reports breast pain, Reports breast mass and Denies nipple discharge Psych Reports as per HPI and Reports mood swings Physical Exam Vital Signs: Last Vital Signs Pulse 75 07/12/24 08:56 BP 133/77 07/12/24 08:56 BMI result Body Mass Index 31.9 Const General: comfortable and well developed Nutritional Appearance: well nourished Orientation/consciousness: patient oriented x3 Limitations: no limitations Neck Neck: Yes no lymphadenopathy, Yes trachea midline and Yes no JVD Chest Other: Left breast with a well-healed incision in the upper outer quadrant, no new skin change, nipple retraction, nipple discharge, or enlarged lymph nodes. There is a palpable density which is tender to palpation located a proximally 4 cm from the nipple in the 8 o'clock position measuring approximately 1.5 cm in diameter. This appears to be mainly thickened breast tissue, possibly fibrocystic change. Right breast with no skin change, nipple retraction, nipple discharge, palpable mass, or enlarged lymph node. Chest palpation & inspection: normal inspection of the chest Chest/axillae images: 2 1. Previous incision upper outer quadrant 2. Area of palpable thickening of the breast 8 o'clock position, tender with no overlying skin changes. Resp Effort & Inspection: normal respiratory effort, no audible wheezes and no cough Skin General skin exam: no rashes or lesions noted Neuro General: patient oriented x3 Extrem General: Yes no clubbing, cyanosis or edema Assessment & Plan Assessment & Plan (1) Invasive ductal carcinoma of breast: Code(s): C50.919 - Malignant neoplasm of unspecified site of unspecified female breast Category: Medical Qualifiers: Laterality: left Qualified Code(s): C50.912 - Malignant neoplasm of unspecified site of left female breast (2) Mass of lower inner quadrant of left breast: Code(s): N63.24 - Unspecified lump in the left breast, lower inner quadrant Category: Medical Plan 59-year-old female patient returning for follow-up breast examination after diagnosed with 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 Examination today reveals no suspicious findings in either breast. Her most recent mammogram of 10/12/2023 revealed no mammographic evidence of recurrent disease (BI-RADS 2). She notes a palpable lump in the lower inner quadrant, tender to palpation. This was confirmed on physical examination which feels mainly like thickened breast tissue however I recommended further evaluation with a diagnostic mammogram and ultrasound. I will call her with the results once available. I also suggested follow-up examination in 6 months sooner p.r.n.. Orders: Orders 2 MM diagnostic mammo unilat LT Today N63.24 - Unspecified lump in the left breast, lower inner quadrant US breast LT limited Today N63.24 - Unspecified lump in the left breast, lower inner quadrant Coding Level of Care Code Est Pt Level 3 (10412) Diagnoses Infiltrating ductal carcinoma of left breast C50.912 Laterality: left Mass of lower inner quadrant of left breast N63.24
[2024-07-12 08:56] VITALS: BP 133/77; PULSE 75; BMI 31.9
== END 2024-07-12 09:08 | disposition home or self-care (01) ==
PROVIDERS: Visit Provider Surgery
DX: C50.912 Malignant neoplasm of unspecified site of left female breast (principal); N63.24 Unspecified lump in the left breast, lower inner quadrant
CPT/HCPCS: 99213

== ENCOUNTER → 2024-07-12 08:39 | Outpatient (BNVA) | payer OTHER, SELFPAY | PROVIDERS: Visit Provider Surgery | DX: C50.912 Malignant neoplasm of unspecified site of left female breast (principal); N63.24 Unspecified lump in the left breast, lower inner quadrant | CPT/HCPCS: 99212 ==

== ENCOUNTER 2024-07-18 08:46 | Outpatient (REF) | payer OTHER, SELFPAY ==
--- NOTE | ~2024-07-18 | MM_ITS ---
EXAMINATION: MM DIAGNOSTIC DIGITAL BREAST TOMOSYNTHESIS, LEFT US BREAST LIMITED, LEFT MAMMOGRAPHY: CLINICAL INFORMATION: 59 female, history of IDC left breast upper outer quadrant status post conservation therapy in 2020. Now complaining of palpable focus of abnormality x2 weeks, far posterior left breast 7:00 axis. Patient denies recent injury to this region. Visual inspection shows no overlying skin abnormality. COMPARISON: Mammography: 11/12/2023, 11/06/2022, 11/04/2021, 09/24/2020, and exams dating back to 2014. TECHNIQUE: Digital left breast tomosynthesis is performed in both the craniocaudal and mediolateral oblique views along with computer-aided detection (CAD). Synthesized 2D images are generated from the tomosynthesis. In addition to standard views, 3-D spot magnification views were obtained in the left CC and MLO projections of the palpable focus of concern. FINDINGS: There are scattered areas of fibroglandular density (ACR BI-RADS breast composition Category b). Stable post therapeutic-related changes upper outer left breast, with surgical scarring. No evidence of disease recurrence. No suspicious masses, suspicious grouped calcifications, or developing areas of architectural distortion. No axillary abnormalities. Area of palpable concern at the 7:00 axis, far posterior left breast, shows no underlying mass or other abnormality to correlate. We will interrogate this region with ultrasound. ULTRASOUND: CLINICAL INFORMATION: Palpable abnormality left breast far posterior one third depth, 7:00 axis. COMPARISON: No relevant prior. TECHNIQUE: Targeted sonographic evaluation left breast was performed using a high frequency linear transducer. Left breast was interrogated from 5:00 to 8:00 to include the area of palpable concern. Selected archived documentation. FINDINGS: LEFT BREAST: There is predominantly fatty breast tissue. No suspicious mass is seen. There is no pathologic acoustic shadowing. There is no cystic abnormality. Spanning the 7-8 o'clock axis there are some patchy geographic appearing echogenic subcutaneous fatty changes, correlating with the area of palpable concern, with an appearance suggestive of a fat contusion, developing fat necrosis, or possibly related to treatment-related change. No encapsulated discrete mass is appreciated. Patient denies injury and there are no skin changes in this region. These findings are most certainly benign, although given patient history 6 month follow-up targeted left breast ultrasound will be performed to assess for resolution/interval change. MM/MM tomosynthesis diagnostic LT IMPRESSION: There are no findings left breast suspicious for malignancy. Stable benign post treatment/therapeutic changes left breast upper outer quadrant. Area of palpable concern in the 7:00 axis of the posterior left breast shows no mammographic abnormality, however spanning 7-8 o'clock axis there are subcutaneous echogenic fatty changes highly suggestive of a contusion or developing fat necrosis. Patient denies injury. No overlying skin changes. Given these findings six-month interval follow-up TARGETED LEFT BREAST ULTRASOUND ONLY is recommended to assess for resolution/interval change. OVERALL ASSESSMENT: Mammography: BI-RADS 3 - Probably benign finding(s) - 6 month follow-up suggested Ultrasound: BI-RADS 3 - Probably benign finding(s) - 6 month follow-up suggested RECOMMENDATION: 6 Month F/U Electronically signed by: Lawrence Lloyd MD 07/18/2024 09:45 AM EDT
== END 2024-07-18 08:47 | disposition home or self-care (01) ==
LOC: HO.MAMMO 08:46
PROVIDERS: PCP Internal Medicine; Visit Provider Surgery
DX: N63.24 Unspecified lump in the left breast, lower inner quadrant (principal)
CPT/HCPCS: 76642; 77061; 77065

== ENCOUNTER → 2024-07-18 08:48 | Outpatient (BNV) | payer OTHER, SELFPAY | PROVIDERS: PCP Internal Medicine; Visit Provider Radiology Diagnostic Radiology | DX: R92.312 Mammographic fatty tissue density, left breast (principal) | CPT/HCPCS: 77061; 77065 ==

== ENCOUNTER 2025-01-19 08:36 | Outpatient (AMB) | payer MEDICARE, MEDICAID, SELFPAY ==
--- NOTE | 2025-01-19 08:38 | MHC.OFFVIS ---
Vital Signs 01/19/25 08:46 Weight 186 lb BP 130/76 Blood Pressure Location Rt brachial Position Sitting Pulse 63 Intake Visit Reasons: 6 month follow up visit, breast exam Intake Note: Patient is seen in office for 6 month follow up visit, breast exam. Pt c/o: no concerns. Denies new lumps, rash, nipple discharge. Requesting Anastrozole 1mg refill. 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 Accompanied by: Self / Same As Patient Allergies Penicillins [PENICILLINS] Allergy (Intermediate, Verified 01/19/25 08:43) rash IV dye Allergy (Unknown, Uncoded 01/19/25 08:43) Unknown Medication List - Last Reconciled 01/19/25 by Donaldo Garzon MD anastrozole 1 mg PO DAILY atenolol 50 mg PO DAILY 90 days [Blood pressure monitor As directed] blood sugar diagnostic (FreeStyle Lite Strips) As directed blood-glucose meter (FreeStyle Lite Meter kit) As directed carbamide peroxide 6.5% (Debrox) 5 drps otic (ears) DAILY 4 days cholecalciferol (vitamin D3) (Vitamin D3) 50 mcg PO DAILY cyclobenzaprine 10 mg PO TID PRN ibuprofen 800 mg PO Q6H PRN lancets (FreeStyle Lancets) As directed multivitamin 1 tab PO DAILY HPI Comments Details: 59-year-old female patient returning for breast cancer follow-up examination. 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 She underwent a left breast lumpectomy with sentinel node biopsy of the left breast on 11/12/2020. Pathology confirmed a 0.9 cm invasive ductal carcinoma with satellite carcinoma in-situ, grade 2, ER/LA positive, HER2 Rey negative, 0/2 sentinel nodes revealed metastatic disease (pT1 N0 MX). The ductal carcinoma extended to within microns of the margin therefore on 11/29/2020 she underwent a re-excision which revealed benign breast parenchyma with no residual carcinoma or in-situ carcinoma. Radiation therapy was performed at [facility] and completed on 02/27/2021. She was evaluated by Dr. Small. Oncotype DX score was 15 with distant recurrence of 4%. Benefits of chemotherapy was less than 1%. She was started on letrozole 2.5 mg daily but subsequently switched to anastrozole 1 mg p.o. daily. Her most recent mammogram of 07/18/2024 revealed an area left breast in the 7-8 o'clock location of possible fat necrosis felt to be low suspicion for malignancy (BI-RADS 3). A repeat mammogram and ultrasound of the left breast was recommended in 6 months in his scheduled for later today at the [facility]. In general she feels well, loss approximately 6 lb with walking. She denies any new breast symptoms. [facility] Medical History Prediabetes Breast cancer, left VASQUEZ (dyspnea on exertion) Chest pain, atypical Hyperparathyroidism History of iron deficiency anemia GERD (gastroesophageal reflux disease) Hypertension Surgical History H/O breast surgery Hx of parathyroidectomy Hx of appendectomy History of dental surgery Family History Other No family history of cancer Social History Household Members: Children Housing: Condominium Are you a primary child care assistant to a significant other at home: No Do you presently have visiting nurse or other home services: No Alcohol intake: never Patient Tobacco Use Status: Never used Tobacco Second Hand Smoke Exposure: No service: No Current occupational status: unemployed Review of Systems Const All systems reviewed & are unremarkable except as noted in HPI and below Denies nipple discharge Skin/Breast Details: Pigment change left breast Reports breast skin changes, Reports breast pain, Reports breast mass and Denies nipple discharge Psych Reports as per HPI and Reports mood swings Physical Exam Const General: comfortable and well developed Nutritional Appearance: well nourished Orientation/consciousness: patient oriented x3 Limitations: no limitations Neck Neck: Yes no lymphadenopathy, Yes trachea midline and Yes no JVD Chest Other: Left breast with a well-healed incision in the upper outer quadrant, no new skin change, nipple retraction, nipple discharge, or enlarged lymph nodes. No new palpable masses appreciated. Right breast with no skin change, nipple retraction, nipple discharge, palpable mass, or enlarged lymph node. Chest palpation & inspection: normal inspection of the chest Chest/axillae images: 1. 2. Resp Effort & Inspection: normal respiratory effort, no audible wheezes and no cough Skin General skin exam: no rashes or lesions noted Neuro Other: Mobility Assessment: 1. 3 meter assessment time (seconds) 5 2. Gait observations: Normal balance and gait General: patient oriented x3 Extrem General: Yes no clubbing, cyanosis or edema Assessment & Plan Assessment & Plan (1) Invasive ductal carcinoma of breast: Code(s): C50.919 - Malignant neoplasm of unspecified site of unspecified female breast Category: Medical Qualifiers: Laterality: left Qualified Code(s): C50.912 - Malignant neoplasm of unspecified site of left female breast (2) Mass of lower inner quadrant of left breast: Code(s): N63.24 - Unspecified lump in the left breast, lower inner quadrant Category: Medical Plan 59-year-old female patient returning for follow-up breast examination after diagnosed with 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 Examination today reveals no suspicious findings in either breast. Her most recent mammogram of 07/18/2024 revealed an area of possible evolving fat necrosis in the left 7 to 8 o'clock position. This was felt to be low suspicion for malignancy (BI-RADS 3). A six-month [facility]up [facility] I recommended a follow-up examination in 6 months pending the results of the radiologic studies today. Medications: Refilled anastrozole 1 mg PO DAILY 90 tabs 4RF Coding Level of Care Code Est Pt Level 3 (25157) Complex EM visit Add On G2211 Diagnoses Infiltrating ductal carcinoma of left breast C50.912 Laterality: left Mass of lower inner quadrant of left breast N63.24
[2025-01-19 08:46] VITALS: BP 130/76; PULSE 63
--- OUTSIDE RECORDS SUMMARY | 2025-01-19 08:53 | XMS_ITS | Encounter Summary ---
Author Organization [facility] Address [address] [place] [address] Care Team Providers Care Vice President Of Nursing Name Role Phone Dorian Monteiro MD Primary Care Provider [phone] Encounter Details Date Type Department Care Team (Late st Contact Info) Description 01/16/2025 3:30 PM EDT Office Visit Adult Medicine [address] [id number] Karen Betancourt PA [address] [place] [id number] Left flank discomfort (Primary Dx); Primary hypertension; Type 2 diabetes mellitus without complication, without long-term current use of insulin ([facility] V24, [facility] V28); Gastroesophageal reflux disease without esophagitis; Anxiety and depression; History of breast cancer; Mild intermittent asthma without complication Social History Tobacco Use Types Packs/Day Years Used Date Smoking Tobacco: Never Smokeless Tobacco: Never Tobacco Cessation:Counseling Given: Not Answered Alcohol Use Standard Drinks/Week Comments Never 0 (1 standard drink = 0.6 oz pur e alcohol) Comments No Sex and Gender Information Value Date Recorded Sex Assigned at Not on file Legal Sex Female 9:15 PM EST Gender Identity Not on file Sexual Orientation Not on file documented as of this encounter Last Filed Vital Signs Vital Sign Reading Time Taken Comments Blood Pressure 118/88 01/16/2025 3:15 PM EDT Pulse 76 01/16/2025 3:15 PM EDT Temperature 36.7 ??C (98 ??F) 01/16/2025 3:15 PM EDT Respiratory Rate 16 01/16/2025 3:15 PM EDT Oxygen Saturation - - Inhaled Oxygen Concentration - - Weight 84.4 kg (186 lb) 01/16/2025 3:15 PM EDT Height 165.1 cm (5' 5 ) 01/16/2025 3:15 PM EDT Body Mass Index 30.95 01/16/2025 3:15 PM EDT documented in this encounter Ordered Prescriptions Prescription Sig Dispense Quantity Refills Last Filled Start Date End Date cholecalciferol (Vitamin D3) 50 mcg (2,000 unit) tablet Take 1 tablet (2,000 Units total) by mouth 1 (one) time each day. 90 tablet 1 01/16/2025 atenoloL (TENORMIN) 25 mg tablet Take 1 tablet (25 mg total) by mouth 1 (one) time each day. 90 tablet 1 01/16/2025 metFORMIN XR (GLUCOPHAGE-XR) 500 mg 24 hr tablet Take 1 tablet (500 mg total) by mouth 1 (one) time each day with breakfast. Do not crush, chew, or split. 90 tablet 1 01/16/2025 documented in this encounter Progress Notes * LEIA Gray - 01/16/2025 3:30 PM EDT CHIEF COMPLAINT: No chief complaint on file. IDENTIFIER: Neda Cyr is a 59 y.o. old female. Past medical history: hypertension, left-sided breast cancer, status post lumpectomy, radiation therapy and on hormonal therapy, history of subtotal parathyroidectomy, cervical radiculopathy with left arm tingling and numbness, lumbar radiculopathy with left leg tingling or numbness, DM2, asthma, treated for left-sided Laguna's palsy, anxiety and depression History of Present Illness The patient presents for evaluation of abdominal pain and medication management. Abdominal Pain - Intermittent mild abdominal pain - Localized to the left flank. - No rash - No urinary or bowel issues. - Pain is postprandial, appetites has been good. - Relieved by lying down - Last episode a week ago - No fever or chills. Hypertension - Blood pressure today is stable Diabetes - She is compliant with dietary changes - she is increase routine activity - She is compliant with medications. Health Maintenance is reviewed, she is up-to-date for mammogram, Pap smear exam, colonoscopy and bone density scan. ROS: See HPI PAST MEDICAL HISTORY: Patient Active Problem List Diagnosis Date Noted Mild intermittent asthma 09/28/2024 LSC (lichen simplex chronicus) 03/29/2024 Osteoporosis with current pathological fracture with routine healing 12/21/2023 Anxiety and depression 09/16/2022 Cervical radiculopathy 09/16/2022 Lumbar radiculopathy 09/16/2022 Obesity (BMI 30.0-34.9) 03/24/2022 Type 2 diabetes mellitus without complication, without long-term current use of insulin 11/20/2021 Gastroesophageal reflux disease without esophagitis 04/29/2021 Primary hypertension 04/29/2021 Past Surgical History: Procedure Laterality Date APPENDECTOMY PROCEDURE: MO APPENDECTOMY BREAST LUMPECTOMY Left 11/12/2020 PROCEDURE: HISTORICAL BREAST LUMPECTOMY; COMMENT: [facility] COLONOSCOPY 01/18/2021 PROCEDURE: HISTORICAL COLONOSCOPY; COMMENT: three polyps, diverticulosis, internal hemorrhoids OTHER SURGICAL HISTORY PROCEDURE: HISTORICAL PARATHYROID SURGERY OTHER SURGICAL HISTORY 11/29/2020 PROCEDURE: HISTORY OTHER; COMMENT: wide excision left breast carcinoma Dr. Garzon SOCIAL HISTORY: Social History Tobacco Use Smoking status: Never Smokeless tobacco: Never Substance Use Topics Alcohol use: Never FAMILY HISTORY: Family History Problem Relation Name Age of Onset Diabetes Mother Hypertension Mother Heart attack Father No Known Problems Sister No Known Problems Brother No Known Problems Brother No Known Problems Daughter No Known Problems Son No Known Problems Son Colon cancer Neg Hx Ovarian cancer Neg Hx Stroke Neg Hx Family Status Relation Name Status Mother Alive Father Sister Alive Brother Alive Brother Alive Daughter Alive Son Alive Son Alive Neg Hx (Not Specified) MGM MGF PGM PGF No partnership data on file MEDICATIONS DISCONTINUED/REORDERED: Medications Discontinued During This Encounter Medication Reason atenoloL (TENORMIN) 25 mg tablet Reorder metFORMIN XR (GLUCOPHAGE-XR) 500 mg 24 hr tablet Reorder Vitamin D3 50 mcg (2,000 unit) tablet Reorder ACTIVE MEDICATIONS: Outpatient Medications Marked as Taking for the 01/16/25 encounter (Office Visit) with LEIA Gray Medication Sig Dispense Refill atenoloL (TENORMIN) 25 mg tablet Take 1 tablet (25 mg total) by mouth 1 (one) time each day. 90 tablet 1 cholecalciferol (Vitamin D3) 50 mcg (2,000 unit) tablet Take 1 tablet (2,000 Units total) by mouth 1 (one) time each day. 90 tablet 1 metFORMIN XR (GLUCOPHAGE-XR) 500 mg 24 hr tablet Take 1 tablet (500 mg total) by mouth 1 (one) timeeach day with breakfast. Do not crush, chew, or split. 90 tablet 1 ALLERGIES: Allergies Allergen Reactions Penicillins Rash Iodinated Contrast Media PHYSICAL EXAM: Vitals: 01/16/25 1515 BP: 118/88 Pulse: 76 Resp: 16 Temp: 36.7 ??C (98 ??F) Physical Exam APPEARANCE: Alert and in no acute distress. EYES: PERRLA, conjunctiva and sclera normal. EARS: External ears normal. Canals clear. TMs normal. NOSE/SINUS: palomo normal. Septum midline. Mucosa normal. No drainage or sinus tenderness. MOUTH/THROAT: no erythema or exudates. NECK: neck supple, no adenopathy, thyroid symmetric and of normal size. HEART: RRR with normal S1 and S2, no murmurs, no gallops. CHEST: non-tender to palpation, no crepitation. LUNG: clear to auscultation, no wheezing, rales, or rhonchi. Able to talk in full complete sentences. ABDOMEN: Bowel sounds normoactive, soft, non-tender, without organomegaly or palpable masses. BACK: No pain to palpation with good flexion and extension. Spine midline, no deviations or step-offs. EXTREMITIES: Extremities warm and well perfused without clubbing, cyanosis, or edema. MUSCULOSKELETAL: Strength 5/5 to bilateral upper/lower extremities. NEURO: Awake, alert and oriented x 3. No focal neurological deficits. SKIN: Skin color, texture, turgor normal. No rashes or lesions. LABS: Results for orders placed or performed in visit on 11/02/24 Chlamydia trachomatis and Neisseria gonorrhoeae molecular study Collection Time: 11/02/24 10:22 AM Specimen: Cervix; Swab Result Value Ref Range Neisseria gonorrhoeae PCR Negative Negative Chlamydia trachomatis PCR Negative Negative Trichomonas vaginalis antigen Collection Time: 11/02/24 10:22 AM Specimen: Vagina; Swab Result Value Ref Range Trichomonas vaginalis Negative Negative IMPRESSION: 1. Left flank discomfort 2. Primary hypertension 3. Type 2 diabetes mellitus without complication, without long-term current use of insulin 4. Gastroesophageal reflux disease without esophagitis 5. Anxiety and depression 6. History of breast cancer 7. Mild intermittent asthma without complication Assessment & Plan 1. Left flank pain: Possible renal calculus or increased gas production. - Urinalysis and ultrasound to rule out kidney stone and other conditions. - Gas-X as needed for relief. 2. Hypertension: Stable. - Continue atenolol 25 mg daily. 3. Diabetes mellitus: Well-controlled. - Last A1C 6.9. - Continue metformin 500 mg daily. 4. Gastroesophageal reflux disease (GERD): Well-controlled. - Continue omeprazole 40 mg daily. 5. Anxiety and depression: Under control. - Continue Lexapro 10 mg daily. 6. Left sided breast cancer - left-sided breast cancer, status post lumpectomy, radiation therapy and on hormonal therapy. - She is on anastrozole 1 mg daily for breast cancer prophylaxis. - She is following up with oncologist Dr. Munoz 7. Asthma - Stable, not recent exacerbations. - Continue with albuterol as needed. Follow-up - Radiology will call for the ultrasound. - Blood work and urine testing to be done tomorrow. I have obtained verbal consent from Neda Cyr prior to the recording. I have advised Neda Cyr that she may refuse the recording and require the recording to be turned off at any time during this encounter. All questions and concerns were addressed. Neda Cyr verbalizes understanding and agrees with this treatment plan. Patient was reminded to call or return to the office if any new or existing problems arise. Orders Placed This Encounter Procedures Urinalysis with reflex microscopic and culture Hemoglobin A1c Comprehensive metabolic panel None LEIA Gray on 01/16/2025 at 5:10 PM EDT Today's documentation was made using voice recognition software.This note may contain grammatical errors secondary to this software. documented in this encounter Plan of Treatment Not on file documented as of this encounter Results * (ABNORMAL) Comprehensive metabolic panel (01/17/2025 9:59 AM EDT) Sodium 138 133 - 145 mmol/L LAB CHEMISTRY METHOD 01/17/2025 3:06 PM [facility] Potassium 4.5 3.5 - 5.5 mmol/L LAB CHEMISTRY METHOD 01/17/2025 3:06 PM [facility] Chloride 104 96 - 110 mmol/L LAB CHEMISTRY METHOD 01/17/2025 3:06 PM [facility] CO2 26 21 - 32 mmol/L LAB CHEMISTRY METHOD 01/17/2025 3:06 PM [facility] Anion Gap 8 3 - 11 LAB CHEMISTRY METHOD 01/17/2025 3:06 PM [facility] Glucose 155(H) 70 - 100 mg/dL LAB CHEMISTRY METHOD 01/17/2025 3:06 PM [facility] BUN 6 5 - 25 mg/dL LAB CHEMISTRY METHOD 01/17/2025 3:06 PM [facility] Creatinine 0.75 0.50 - 1.10 mg/dL LAB CHEMISTRY METHOD 01/17/2025 3:06 PM [facility] eGFR 93 >=60 mL/min/1. 73m2 LAB CHEMISTRY METHOD 01/17/2025 3:06 PM [facility] Comment:Calculation based on the??Chronic Kidney Disease Epidemiology Collaboration (CKD-EPI) equation refit??without adjustment for race. BUN/Creatinine Ratio 8.0 LAB CHEMISTRY METHOD 01/17/2025 3:06 PM [facility] Calcium 9.8 8.5 - 10.5 mg/dL LAB CHEMISTRY METHOD 01/17/2025 3:06 PM [facility] AST (SGOT) 35 10 - 42 unit/L LAB CHEMISTRY METHOD 01/17/2025 3:06 PM [facility] ALT (SGPT) 69(H) 10 - 60 unit/L LAB CHEMISTRY METHOD 01/17/2025 3:06 PM EDT [facility] Alkaline Phosphatase 84 42 - 121 unit/L LAB CHEMISTRY METHOD 01/17/2025 3:06 PM EDT [facility] Total Protein 8.3(H) 6.0 - 8.0 g/dL LAB CHEMISTRY METHOD 01/17/2025 3:06 PM EDT [facility] Albumin 4.1 3.2 - 5.0 g/dL LAB CHEMISTRY METHOD 01/17/2025 3:06 PM EDT [facility] Total Bilirubin 0.4 0.0 - 1.4 mg/dL LAB CHEMISTRY METHOD 01/17/2025 3:06 PM EDT [facility] Blood Venous blood specimen / Unknown Venipuncture / Unknown 01/17/2025 9:59 AM EDT 01/17/2025 9:59 AM EDT Karen DUPREE LAB BLOOD ORDERABLES Fin al Result [facility] [address] [place] [address], * (ABNORMAL) Hemoglobin A1c (01/17/2025 9:59 AM EDT) Hemoglobin A1C 7.1(H) <6.5 % LAB CHEMISTRY METHOD 01/17/2025 9:18 PM EDT [facility] Mean Bld Glu Estim. 157 mg/dL LAB CHEMISTRY METHOD 01/17/2025 9:18 PM EDT [facility] Blood Venous blood specimen / Unknown Venipuncture / Unknown 01/17/2025 9:59 AM EDT 01/17/2025 9:59 AM EDT Karen DUPREE LAB BLOOD ORDERABLES Fin al Result [facility] [address] [place] [address], documented in this encounter Visit Diagnoses Diagnosis Left flank discomfort- Primary Primary hypertension Unspecified essential hypertension Type 2 diabetes mellitus without complication, without long-term current use of insulin ([facility] V24, [facility] V28) Gastroesophageal reflux disease without esophagitis Esophageal reflux Anxiety and depression History of breast cancer Personal history of malignant neoplasm of breast Mild intermittent asthma without complication documented in this encounter Discontinued Medications Medication Sig Discontinue Reason Start Date End Da te atenoloL (TENORMIN) 25 mg tablet Take 1 tablet (25 mg total) by mouth 1 (one) time each day. Reorder 11/02/2024 01/16/2025 metFORMIN XR (GLUCOPHAGE-XR) 500 mg 24 hr tablet Take 1 tablet (500 mg total) by mouth 1 (one) time each day with breakfast. Do not crush, chew, or split. Reorder 11/02/2024 01/16/2025 Vitamin D3 50 mcg (2,000 unit) tablet TAKE 1 TABLET BY MOUTH EVERY DAY Reorder 11/16/2024 01/16/2025 documented as of this encounter Orders Lab Orders Without Results Count Last Ordered D ate First Ordered Date URINALYSIS WITH REFLEX MICRO SCOPIC AND CULTURE 1 01/16/2025 documented in this encounter Care Teams Vice President Of Nursing Relationship Specialty Start Date End Date Dorian Monteiro MD [address] [place] [address] PCP - General Internal Medicine 04/15/22 documented as of this encounter
--- OUTSIDE RECORDS SUMMARY | 2025-01-19 08:53 | XMS_ITS | Clinical Summary ---
Author Organization [facility] [address] [facility] Address [address] [facility] [place] [address] Phone Care Team Providers Care Wet Machine Operator Name Role Phone Dorian Monteiro MD Primary Care Provider [phone] Allergies Active Allergy Reactions Criticality Noted Date Comments Iodinated Contrast Media 04/29/2021 Penicillins Rash Medium 02/13/2021 Medications isopropyl alcohol-benzoca ine 70-6 % pads, medicated Apply 1 Each topically daily. 2 Active anastrozole (ARIMIDEX) 1 mg Take 1 mg by mouth daily. Active blood-glucose meter (BLOOD GLUCOSE MONITORING MISC) Use to check blood sugar once a day 4 Active escitalopram (LEXAPRO) 10 mg tablet Take 1 Tablet by mouth daily. 4 Active FREESTYLE LANCETS MISC Use to check blood sugar once a day 4 Active blood sugar diagnostic (FreeStyle Lite Strips) test strip Use to check blood sugar once a day 4 Active LOW-DOSE ASPIRIN ORAL Take 81 mg by mouth daily. Active multivitamin (MULTIPLE VITAMINS ORAL) Take by mouth daily. Active omeprazole (PriLOSEC) [address] capsule Take 1 Capsule by mouth daily. 4 Active clobetasoL (TEMOVATE) 0.05 % ointment APPLY 1 FINGERTIP UNIT TOPICALLY TO AFFECTED AREA AT NIGHT X4 WEEKS THEN EVERY OTHER NIGHT X4 WEEKS 90 g 2 5 Active Ventolin HFA 90 mcg/actuation inhaler INHALE 2 PUFFS BY MOUTH EVERY 4 (FOUR) HOURS IF NEEDED FOR WHEEZING OR SHORTNESS OF BREATH. 18 each 2 5 11/02/19 26 Active metFORMIN XR (GLUCOPHAGE-XR) 500 mg 24 hr tablet Take 1 tablet (500 mg total) by mouth 1 (one) time each day with breakfast. Do not crush, chew, or split. 90 tablet 1 5 Active atenoloL (TENORMIN) 25 mg tablet Take 1 tablet (25 mg total) by mouth 1 (one) time each day. 90 tablet 1 5 Active cholecalciferol (Vitamin D3) 50 mcg (2,000 unit) tablet Take 1 tablet (2,000 Units total) by mouth 1 (one) time each day. 90 tablet 1 5 Active atenoloL (TENORMIN) 25 mg tablet Take 1 tablet (25 mg total) by mouth 1 (one) time each day. 90 tablet 1 5 01/17/20 25 Discontinu ed(Reorder ) metFORMIN XR (GLUCOPHAGE-XR) 500 mg 24 hr tablet Take 1 tablet (500 mg total) by mouth 1 (one) time each day with breakfast. Do not crush, chew, or split. 90 tablet 1 5 01/17/20 25 Discontinu ed(Reorder ) Vitamin D3 50 mcg (2,000 unit) tablet TAKE 1 TABLET BY MOUTH EVERY DAY 90 tablet 1 5 01/17/20 25 Discontinu ed(Reorder ) Active Problems Problem Noted Date Diagnosed Date Mild intermittent asthma 09/28/2024 LSC (lichen simplex chronicus) 03/29/2024 Overview (09/13/2024): Last Assessment & Plan: Resolved. Explained the best way to keep away would be to avoid external irritants, use a skin barrier, and keep sugars well controlled. She voiced understanding and agreed. Plans to use coconut oil and come back if worsening. Osteoporosis with current pa thological fracture with routine healing 12/21/2023 Anxiety and depression 09/16/2022 Cervical radiculopathy 09/16/2022 Lumbar radiculopathy 09/16/2022 Obesity (BMI 30.0-34.9) 03/24/2022 Type 2 diabetes mellitus wit hout complication, without long-term current use of insulin ([facility] V24, [facility] V28) 11/20/2021 Gastroesophageal reflux disease without esophagi tis 04/29/2021 Primary hypertension 04/29/2021 Encounters Date Type Department Care Team Description 01/16/2025 3:30 PM EDT Office Visit Adult Medicine [address] [phone] Karen Betancourt PA Left flank discomfort (Primary Dx); Primary hypertension; Type 2 diabetes mellitus without complication, without long-term current use of insulin ([facility] V24, [facility] V28); Gastroesophageal reflux disease without esophagitis; Anxiety and depression; History of breast cancer; Mild intermittent asthma without complication 01/05/2025 Telephone Adult [address] [phone] Dorian Monteiro MD Request For Order(s) (Mammogram screening) 11/03/2024 Telephone Obstetrics and Gynecology [address] [phone] Nisha Tapia CNM 11/02/2024 3:49 PM EST - 11/02/2024 11:59 PM EST Hospital Encounter Radiology Department - [address] [phone] PMB (postmenopausal bleeding) Discharge Disposition: Home or Self Care 11/02/2024 10:30 AM EST Office Visit Obstetrics and Gynecology - [address] [phone] Nisha Tapia CNM PMB (postmenopausal bleeding) (Primary Dx) 11/02/2024 9:30 AM EST Office Visit Adult Medicine [address] [phone] Karen Betancourt PA Primary hypertension (Primary Dx); Type 2 diabetes mellitus without complication, without long-term current use of insulin ([facility] V24, [facility] V28) 10/21/2024 Telephone Obstetrics and Gynecology [address] [phone] Soumya Kahn MD Vaginal Bleeding from Last 3 Months Immunizations Name Administration Dates Next Due Pfizer SARS-CoV-2 COVID-19, mRNA, LNP-S, preservative free 03/30/2021,03/09/2021 Tdap Tetanus diptheria acell ular pertussis (Boostrix; Adacel) 7yo and older 03/27/2021 Surgical History Surgery Date Site/Laterality Comments BREAST LUMPECTOMY 11/12/2020 Left PROCEDURE: HISTORICAL BREAST LUMPECTOMY; COMMENT: [facility] OTHER SURGICAL HISTORY PROCEDURE: HISTORICAL PARATHYROID SURGERY APPENDECTOMY PROCEDURE: CA APPENDECTOMY COLONOSCOPY 01/18/2021 PROCEDURE: HISTORICAL COLONOSCOPY; COMMENT: three polyps, diverticulosis, internal hemorrhoids OTHER SURGICAL HISTORY 11/29/2020 PROCEDURE: HISTORY OTHER; COMMENT: wide excision left breast carcinoma Dr. Garzon Medical History Medical History Date Comments GERD (gastroesophageal reflux disease) DX:GERD (gastroesophageal reflux disease) Hypertension 04/29/2021 DX:Hypertension Invasive ductal carcinoma of breast, left ([facility] V24, [facility] V28) 02/13/2021 DX:Invasive ductal carcinom a of breast, left (HCC); COMMENT: S/p lumpectomy and radiation. Dx August 2020, on Letrozole Diverticulosis 04/29/2021 DX:Diverticulosi s; COMMENT: CN 01/18/21 Hyperparathyroidism ([facility] V24) 03/27/2021 DX:Hyperparathyroidism (HCC); COMMENT: S/p surgery, 2 removed Internal hemorrhoids 04/29/2021 DX:Internal hemorrhoids; COMMENT: CN 01/18/21 Iron deficiency anemia 04/29/2021 DX:Iron d eficiency anemia Tubular adenoma of colon 04/29/2021 DX:Tubu lar adenoma of colon; COMMENT: CN 01/18/21 Family History Medical History Relation Name Comments No Known Problems Brother 1 No Known Problems Brother 2 No Known Problems Daughter Heart attack Father Diabetes Mother Hypertension Mother No Known Problems Sister No Known Problems Son 1 No Known Problems Son 2 Colon cancer Neg Hx Ovarian cancer Neg Hx Stroke Neg Hx Relation Name Status Comments Brother 1 Alive Brother 2 Alive Daughter Alive Father Maternal Grandfather Maternal Grandmother Mother Alive Paternal Grandfather Paternal Grandmother Sister Alive Son 1 Alive Son 2 Alive Social History Tobacco Use Types Packs/Day Years [...] on file Sexual Orientation Not on file Obstetrics History Para Term AB IAB SAB Ectopic Multiple Livin g Live Births 6 3 3 3 3 3 3 Date Outcome GA Total Labor Labor/2nd/3rd Weight Sex Type Anes PTL Jessie A1 A5 Name Clin Vag-S pont Living Vag-S pont Living Vag-S pont Living SAB SAB SAB Last Filed Vital Signs Vital Sign Reading [...] Mass Index 30.95 01/16/2025 3:15 PM EDT Plan of Treatment Health Maintenance Due Date Last Done Comments Breast Cancer Screening 1967 Diabetes: Annual Foot Exam 1977 Hepatitis B Vaccines (1 of 3 - 19+ 3-dose series) 1986 Pneumococcal Vaccine: 50+ Years (1 of 2 - PCV) 1986 Pneumococcal Vaccine: Pediatrics (0 to 5 Years) and At-Risk Patients (6 to 64 Years) (1 of 2 - PCV) 1986 Zoster Vaccines (1 of 2) 1986 HIV Screening 09/13/2022 Hepatitis C Screening 09/13/2022 Medicare Annual Wellness Visit 09/13/2022 Osteoporosis Screening (Bone Density Screening) 09/13/2022 Social Influencers of Health Screening 09/13/2022 COVID-19 Vaccine ( season) 2024 10/15/2021, 03/30/2021, 03/09/2021, Additional history exists Diabetes: Annual Retina Eye Exam 02/16/2025 02/17/2024 Depression Screening 05/26/2025 05/26/2024 Influenza Vaccine (Season Ended) 2025 Diabetes: Blood Sugar Control Test (HGBA1C) 07/19/2025 01/17/2025, 09/28/2024, 03/03/2024, Additional history exists Diabetes: Annual Urine Albumin-Creatinine Ratio (uACR) 09/28/2025 09/28/2024, 12/23/2023 Diabetes: Annual GFR (Glomerular Filtration Rate) 01/17/2026 01/17/2025, 09/28/2024, 03/03/2024, Additional history exists Hypertension/CHF/CAD Annual BMP Blood Test 01/17/2026 01/17/2025, 09/28/2024, 03/03/2024, Additional history exists Colorectal Cancer Screening: Colonoscopy 01/18/2026 01/18/2021 Cervical Cancer Screening: HPV 06/11/2026 06/11/2021 Cholesterol Screening (Lipid Panel) 12/21/2028 12/22/2023 DTaP,Tdap,and Td Vaccines (2 - Td or Tdap) 03/27/2031 03/27/2021 HIB Vaccines Aged Out No longer eligi ble based on patient's age to complete this topic HPV Vaccines Aged Out No longer eligi ble based on patient's age to complete this topic Hepatitis A Vaccines Aged Out No long er eligible based on patient's age to complete this topic IPV Vaccines Aged Out No longer eligi ble based on patient's age to complete this topic MMR Vaccines Aged Out No longer eligi ble based on patient's age to complete this topic Meningococcal ACWY Vaccine Aged Out N o longer eligible based on patient's age to complete this topic Meningococcal B Vaccine Aged Out No l onger eligible based on patient's age to complete this topic RSV Immunization Patients Under 20 months Aged Out No longer eligible based on patient's age to complete this topic Varicella Vaccines Aged Out No longer eligible based on patient's age to complete this topic Procedures Procedure Name Priority Date/Time Associated Diagnosis Comments HEMOGLOBIN A1C Routine 01/17/2025 9:59 AM EDT Type 2 diabetes mellitus without complication, without long-term current use of insulin ([facility] V24, [facility] V28) COMPREHENSIVE METABOLIC PANEL Routine 01/17/2025 9:59 AM EDT Left flank discomfort Type 2 diabetes mellitus without complication, without long-term current use of insulin ([facility] V24, [facility] V28) Primary hypertension US PELVIS NON OB COMPLETE W TRANSVAGINAL Routine 11/02/2024 4:12 PM EST PMB (postmenopausal bleeding) TRICHOMONAS VAGINALIS ANTIGEN Routine 11/02/2024 10:22 AM EST PMB (postmenopausal bleeding) CHLAMYDIA TRACHOMATIS AND NEISSERIA GONORRHOEAE PCR Routine 11/02/2024 10:22 AM EST PMB (postmenopausal bleeding) MICROALBUMIN CREATININE URINE RATIO Routine 09/28/2024 11:26 AM EST Anxiety and depression Type 2 diabetes mellitus without complication, without long-term current use of insulin ([facility] V24, [facility] V28) Primary hypertension Mild intermittent asthma, unspecified whether complicated Osteoporosis with current pathological fracture with routine healing, unspecified osteoporosis type, subsequent encounter DEPRESSION SCREENING Routine 05/26/2024 DIABETES EYE EXAM Routine 02/17/2024 LIPID PANEL Routine 12/22/2023 HPV Routine 06/11/2021 COLONOSCOPY Routine 01/18/2021 from Last 3 Months or Most Recently Relevant to Health Maintenance Results * (ABNORMAL) Hemoglobin A1c (01/17/2025 9:59 AM EDT) Hemoglobin A1C 7.1(H) <6.5 % LAB CHEMISTRY METHOD 01/17/2025 9:18 PM [facility] Mean Bld Glu Estim. 157 mg/dL LAB CHEMISTRY METHOD 01/17/2025 9:18 PM [facility] Blood Venous blood specimen / Unknown Venipuncture / Unknown 01/17/2025 9:59 AM EDT 01/17/2025 9:59 AM EDT Karen DUPREE LAB BLOOD ORDERABLES Fin al Result [facility] [address] [place] [address], [place] [phone] * (ABNORMAL) Comprehensive metabolic panel (01/17/2025 9:59 AM EDT) [facility] Sodium 138 133 - 145 mmol/L LAB CHEMISTRY METHOD 01/17/2025 3:06 PM [facility] Potassium 4.5 3.5 - 5.5 mmol/L LAB CHEMISTRY METHOD 01/17/2025 3:06 PM [facility] Chloride 104 96 - 110 mmol/L LAB CHEMISTRY METHOD 01/17/2025 3:06 PM [facility] CO2 26 21 - 32 mmol/L LAB CHEMISTRY METHOD 01/17/2025 3:06 PM [facility] Anion Gap 8 3 - 11 LAB CHEMISTRY METHOD 01/17/2025 3:06 PM [facility] Glucose 155(H) 70 - 100 mg/dL LAB CHEMISTRY METHOD 01/17/2025 3:06 PM [facility] BUN 6 5 - 25 mg/dL LAB CHEMISTRY METHOD 01/17/2025 3:06 PM [facility] Creatinine 0.75 0.50 - 1.10 mg/dL LAB CHEMISTRY METHOD 01/17/2025 3:06 PM [facility] eGFR 93 >=60 mL/min/1. 73m2 LAB CHEMISTRY METHOD 01/17/2025 3:06 PM [facility] Comment:Calculation based on the??Chronic Kidney Disease Epidemiology Collaboration (CKD-EPI) equation refit??without adjustment for race. BUN/Creatinine Ratio 8.0 LAB CHEMISTRY METHOD 01/17/2025 3:06 PM [facility] Calcium 9.8 8.5 - 10.5 mg/dL LAB CHEMISTRY METHOD 01/17/2025 3:06 PM [facility] AST (SGOT) 35 10 - 42 unit/L LAB CHEMISTRY METHOD 01/17/2025 3:06 PM [facility] ALT (SGPT) 69(H) 10 - 60 unit/L LAB CHEMISTRY METHOD 01/17/2025 3:06 PM [facility] Alkaline Phosphatase 84 42 - 121 unit/L LAB CHEMISTRY METHOD 01/17/2025 3:06 PM [facility] Total Protein 8.3(H) 6.0 - 8.0 g/dL LAB CHEMISTRY METHOD 01/17/2025 3:06 PM [facility] Albumin 4.1 3.2 - 5.0 g/dL LAB CHEMISTRY METHOD 01/17/2025 3:06 PM [facility] Total Bilirubin 0.4 0.0 - 1.4 mg/dL LAB CHEMISTRY METHOD 01/17/2025 3:06 PM [facility] Blood Venous blood specimen / Unknown Venipuncture / Unknown 01/17/2025 9:59 AM EDT 01/17/2025 9:59 AM EDT Karen DUPREE LAB BLOOD ORDERABLES Fin al Result [facility] [address] [place] [address], [place] [phone] * US Pelvis Non OB Complete w Transvaginal (11/02/2024 4:12 PM EST) Anatomical Region Laterality Modality Body, Pelvis Ultrasound 11/02/2024 5:52 PM EST Impressions 11/02/2024 5:55 PM EST 1. ??Multiple uterine fibroids 2. Endometrial stripe is within normal limits measuring 0.3 cm. -------- FINAL REPORT -------- Dictated By: Hilario Ochoa Dictated Date: 11/02/2024 17:52 ET Assigned Physician: Hilario Ochoa Reviewed and Electronically Signed By: Hilario Ochoa Signed Date: 11/02/2024 17:55 ET Workstation ID: [id number] Transcribed By: Self Edit Transcribed Date: 11/02/2024 17:52 ET Narrative 11/02/2024 5:55 PM EST EXAM: TRANSABDOMINAL AND TRANSVAGINAL PELVIC ULTRASOUND HISTORY: OTHER PMB COMPARISON: None Technique: Grayscale and Doppler images of the pelvis were obtained using transabdominal approach. Transvaginal approach was used to better characterize the ovaries. FINDINGS: The uterus is normal in size and measures 6.7 x 4.6 x 6.4 cm. The normal in caliber endometrial stripe measures up to 0.3 cm. Hypoechoic solid heterogeneous masses as follows: Intramural/subserosal 2.9 x 2.8 x 3.0 cm, intramural/subserosal 1.7 x 1.5 x 1.8 cm and intramural lower uterine segment 1.4 x 1.2 x 1.4 cm. Right ovary measures 2.3 x 1.3 x 1.4 cm and is sonographically unremarkable. Left ovary measures 2.4 x 1.2 x 1.2 cm and is also sonographically unremarkable. No free fluid. Procedure Note Hilario Ochoa MD - 11/02/2024 EXAM: TRANSABDOMINAL AND TRANSVAGINAL PELVIC ULTRASOUND HISTORY: OTHER PMB COMPARISON: None Technique: Grayscale and Doppler images of the pelvis were obtained usingtransabdominal approach. Transvaginal approach was used to bettercharacterize the ovaries. FINDINGS: The uterus is normal in size and measures 6.7 x 4.6 x 6.4 cm. The normalin caliber endometrial stripe measures up to 0.3 cm. Hypoechoic solidheterogeneous masses as follows: Intramural/subserosal 2.9 x 2.8 x 3.0 cm,intramural/subserosal 1.7 x 1.5 x 1.8 cm and intramural lower uterinesegment 1.4 x 1.2 x 1.4 cm. Right ovary measures 2.3 x 1.3 x 1.4 cm and is sonographicallyunremarkable. Left ovary measures 2.4 x 1.2 x 1.2 cm and is also sonographicallyunremarkable. No free fluid. IMPRESSION: 1. Multiple uterine fibroids 2. Endometrial stripe is within normal limits measuring 0.3 cm. -------- FINAL REPORT -------- Dictated By: Hilario Ochoa Dictated Date: 11/02/2024 17:52 ET Assigned Physician: Hilario Ochoa Reviewed and Electronically Signed By: Hilario Ochoa Signed Date: 11/02/2024 17:55 ET Workstation ID: [id number] Transcribed By: Self Edit Transcribed Date: 11/02/2024 17:52 ET Nisha Tapia CNM IMG US PROCEDURES Final Result * Trichomonas vaginalis antigen (11/02/2024 10:22 AM EST) Trichomonas vaginalis Negative Negative 11/02/2024 7:00 PM EST [facility] Swab Vaginal structure / Unknown Non-blood Collection / Unknown 11/02/2024 10:22 AM EST 11/02/2024 10:22 AM EST Nisha Tapia CNM LAB MICROBIOLOGY - GENERAL ORDE RABOCTAVIO Final Result [facility] [address] [place] [address], [place] [phone] * Chlamydia trachomatis and Neisseria gonorrhoeae molecular study (11/02/2024 10:22 AM EST) Neisseria gonorrhoeae PCR Negative Negative LAB MOLECULAR DIAGNOSTICS METHOD 11/03/2024 9:00 AM EST [facility] Chlamydia trachomatis PCR Negative Negative LAB MOLECULAR DIAGNOSTICS METHOD 11/03/2024 9:00 AM [facility] Swab Cervix uteri structure / Unknown Non-blood Collection / Unknown 11/02/2024 10:22 AM EST 11/02/2024 10:22 AM EST Nisha Tapia CNM LAB MICROBIOLOGY - GENERAL SLICK RANKIN Final Result Performing Organization Address [facility]/ZIP Co de Phone Number [facility] [address] [place] [address], * Microalbumin creatinine urine ratio (09/28/2024 11:26 AM EST) Pathologist [facility] Creatinine, Urine 165.0 mg/dL LAB CHEMISTRY METHOD 09/28/2024 3:10 PM [facility] Microalb, Ur 15.5 0.0 - 29.0 mg/L LAB CHEMISTRY METHOD 09/28/2024 3:10 PM [facility] Microalb/Creat Ratio 9 <30 mg/g creat LAB CHEMISTRY METHOD 09/28/2024 3:10 PM [facility] Urine Urine specimen obtained by clean catch procedure / Unknown Non-blood Collection / Unknown 09/28/2024 11:26 AM EST 09/28/2024 11:26 AM EST Karen DUPREE LAB URINE ORDERABLES Fin al Result Performing Organization Address [facility]/ZIP Co de Phone Number [facility] [address] [place] [address], * Hm Depression Screening (05/26/2024) [facility] Depression Screening abstracted [facility] Provider HEALTH MAINTENANCE Final Result * Diabetes Eye Exam (02/17/2024) [facility] Diabetes: Annual Retina Eye Exam abstracted [facility] Provider HEALTH MAINTENANCE Final Result * (ABNORMAL) Lipid panel (12/22/2023) [facility] LDL/HDL Ratio 4 0 - 4 Triglycerides 125 0 - 150 mg/dL Cholesterol 214(A) 0 - 200 mg/dL HDL 54 >=40 mg/dL LDL Cholesterol 135(A) 0 - 100 mg/dL Blood Venous blood specimen / Unknown Result [facility] Provider LAB BLOOD ORDERABLES Beatriz l Result * Cervical Cancer Screening: HPV (06/11/2021) [facility] Cervical Cancer Screening: HPV normal, abstracted [facility] Provider HEALTH MAINTENANCE Final Result * Colonoscopy (01/18/2021) [facility] Colonoscopy no interpretation , abstracted Anatomical Region Laterality Modality Other [facility] Provider HEALTH MAINTENANCE Final Result from Last 3 Months or Most Recently Relevant to Health Maintenance Insurance MEDICARE [place]ICAID - [place] Care Teams Wet Machine Operator Relationship Specialty Start Date End Date Dorian Monteiro MD [address] [place] [address] PCP - General Internal Medicine 04/15/22
--- OUTSIDE RECORDS SUMMARY | 2025-01-19 08:53 | XMS_ITS | Clinical Summary ---
Author Organization [facility] Address [address] [place] [address] Care Team Providers Care Channeler Insole Name Role Phone Unavailable Primary Care Provider Unavailabl e Allergies Active Allergy Reactions Criticality Noted Date Comments Penicillin G Rash Medium 05/12/2022 Rash over entire body Medications Medication Sig Dispensed Refills Start Date End Date Status gabapentin (NEURONTIN) 300 MG capsule Take 1 capsule (300 mg total) by mouth 3 (three) times a day. 90 capsule 3 07/01/2022 Active Family History Medical History Relation Name Comments No Sig Med Hx Father Arthritis Mother Diabetes Mother Hypertension Mother Relation Name Status Comments Father Mother Alive Social History Tobacco Use Types Packs/Day Years Used Date Smoking Tobacco: Never Smokeless Tobacco: Never Alcohol Use Standard Drinks/Week Comments Never 0 (1 standard drink = 0.6 oz pur e alcohol) Sex and Gender Information Value Date Recorded Sex Assigned at Not on file Gender Identity Not on file Sexual Orientation Not on file Job Start Date Occupation Industry Not on file Not on file Not on file Last Filed Vital Signs Vital Sign Reading Time Taken Comments Blood Pressure - - Pulse 79 07/01/2022 8:14 AM EDT Temperature 36.9 ??C (98.5 ??F) 07/01/2022 8:14 AM ED T Respiratory Rate - - Oxygen Saturation 98% 07/01/2022 8:14 AM EDT Inhaled Oxygen Concentration - - Weight 84 kg (185 lb 3 oz) 05/12/2022 8:52 AM ED T Height 165.1 cm (5' 5 ) 05/12/2022 8:52 AM EDT Body Mass Index 30.82 05/12/2022 8:52 AM EDT Plan of Treatment Health Maintenance Due Date Last Done Comments Hepatitis B Vaccines (1 of 3 - 3-dose series) 1967 Hepatitis C Screening 1967 Depression Screening 1979 Preventative Health Evaluation 1985 Cervical Cancer Screening (Pap Smear) 1988 Colon Cancer Screening (Colonoscopy) 2012 Breast Cancer Screening (Mammogram) 2017 Shingrix-Zoster Vaccine (1 o f 2) 2017 COVID-19 Vaccine (3 - 2023-2 5 season) 2024 03/30/2021, 03/09/2021 Influenza Vaccine (#1) 2024 DTap / Tdap / Td (2 - Td or Tdap) 03/27/2031 03/27/2021 Pneumococcal Vaccine Aged Out No long er eligible based on patient's age to complete this topic RSV Ped < 20 months Aged Out No longe r eligible based on patient's age to complete this topic Neda Cyr TPL/AUTO Self 1965 [address] [place] [address] Neda Cyr TPL/AUTO Self 1965 [address] [place] [address]
--- OUTSIDE RECORDS SUMMARY | 2025-01-19 08:53 | XMS_ITS | Clinical Summary ---
Author Organization [facility] Address [address] [place] [address] Care Team Providers Care Or Scrub Tech Name Role Phone Unavailable Primary Care Provider Unavailabl e Social History Tobacco Use Types Packs/Day Years Used Date Smoking Tobacco: Never Assessed Sex and Gender Information Value Date Recorded Sex Assigned at Not on file Gender Identity Not on file Sexual Orientation Not on file Plan of Treatment Health Maintenance Due Date Last Done Comments Hepatitis C Virus Screening 1967 HIV Screening 1980 DTaP/Tdap/Td Vaccines (1 - Tdap) 1986 Hepatitis B Vaccines (1 of 3 - 19+ 3-dose series) 1986 Pneumococcal Vaccines 50+ (1 of 1 - PCV) 2017 Zoster (Shingles) Vaccine (1 of 2) 2017 COVID-19 Vaccine (2023-2 5 season) 2024 Pneumococcal Vaccine: Pediat daryl (0-5 Years) and At-Risk Patients (6 to 49 Years) Aged Out No longer eligible b ased on patient's age to complete this topic
== END 2025-01-19 08:56 | disposition home or self-care (01) ==
LOC: HO.HGS 08:36
PROVIDERS: PCP Internal Medicine; Visit Provider Surgery
DX: C50.912 Malignant neoplasm of unspecified site of left female breast (principal); N63.24 Unspecified lump in the left breast, lower inner quadrant
CPT/HCPCS: 99213; G2211

== ENCOUNTER 2025-01-19 10:34 | Outpatient (REF) | payer MEDICARE, MEDICAID, SELFPAY ==
--- NOTE | ~2025-01-19 | US_ITS ---
EXAMINATION: MM DIAGNOSTIC DIGITAL BREAST TOMOSYNTHESIS, BILATERAL Limited left breast ultrasound. CLINICAL INFORMATION: History of left breast cancer status post conservation therapy. Follow-up for left breast ultrasound from July 2024. COMPARISON: Mammography: Comparison is made with relevant prior exams. TECHNIQUE: Digital breast mammography with tomosynthesis is performed in both the craniocaudal and mediolateral oblique views along with computer-aided detection (CAD). FINDINGS: There are scattered areas of fibroglandular density (ACR BI-RADS breast composition Category b). Left post lumpectomy changes are stable. There are no significant masses, abnormal calcifications, or other abnormalities. Targeted color Doppler ultrasound scanning in the left breast lower inner quadrant demonstrates normal fibroglandular breast tissue. No sonographic abnormality seen. Results are provided to the patient at time of visit by the technologist. US/US breast LT limited mamm only IMPRESSION: There are no significant changes from prior study. ASSESSMENT: BI-RADS BI-RADS 1 - Negative RECOMMENDATION: 1 year F/U This patient's information was entered into a reminder system with a target due date for their next mammogram. Electronically signed by: Ciarra Oconnor DO 01/19/2025 11:24 AM EDT
--- OUTSIDE RECORDS SUMMARY | 2025-01-19 12:31 | XMS_ITS | Clinical Summary ---
Author Organization [facility] [address] [facility] Address [address] [facility] [place] [address] Phone Care Team Providers Care Plumbing Drafter Name Role Phone Dorian Monteiro MD Primary Care Provider Allergies Active Allergy Reactions Criticality Noted Date [...] complication, without long-term current use of insulin ([facility] V24, [facility] V28) 11/20/2021 Gastroesophageal reflux disease without esophagi tis 04/29/2021 Primary hypertension 04/29/2021 Encounters Date Type Department Care Team Description 01/16/2025 3:30 PM EDT Office Visit Adult Medicine [address] [phone] Karen Betancourt PA Left flank discomfort (Primary Dx); Primary hypertension; Type 2 diabetes mellitus without complication, without long-term current use of insulin ([facility] V24, [facility] V28); Gastroesophageal reflux disease without esophagitis; Anxiety and depression; History of breast cancer; Mild intermittent asthma without complication 01/05/2025 Telephone Adult [address] [phone] Dorian Monteiro MD Request For Order(s) (Mammogram screening) 11/03/2024 Telephone Obstetrics and Gynecology [address] [phone] Nisah Tapia CNM 11/02/2024 3:49 PM EST - 11/02/2024 11:59 PM EST Hospital Encounter Radiology Department - [address] [phone] PMB (postmenopausal bleeding) Discharge Disposition: Home or Self Care 11/02/2024 10:30 AM EST Office Visit Obstetrics and Gynecology - [address] [phone] Nisha Tapia CNM PMB (postmenopausal bleeding) (Primary Dx) 11/02/2024 9:30 AM EST Office Visit Adult Medicine [address] [phone] Karen Betancourt PA Primary hypertension (Primary Dx); Type 2 diabetes mellitus without complication, without long-term current use of insulin ([facility] V24, [facility] V28) 10/21/2024 Telephone Obstetrics and Gynecology [address] [phone] Soumya Kahn MD Vaginal Bleeding from Last 3 Months Immunizations Name Administration Dates Next Due Pfizer SARS-CoV-2 COVID-19, mRNA, LNP-S, preservative free 03/30/2021,03/09/2021 Tdap Tetanus diptheria acell ular pertussis (Boostrix; Adacel) 7yo and older 03/27/2021 Surgical History Surgery Date Site/Laterality Comments BREAST LUMPECTOMY 11/12/2020 Left PROCEDURE: HISTORICAL BREAST LUMPECTOMY; COMMENT: [facility] OTHER SURGICAL HISTORY PROCEDURE: HISTORICAL PARATHYROID SURGERY APPENDECTOMY PROCEDURE: [place] APPENDECTOMY COLONOSCOPY 01/18/2021 PROCEDURE: HISTORICAL COLONOSCOPY; COMMENT: three polyps, diverticulosis, internal hemorrhoids OTHER SURGICAL HISTORY 11/29/2020 PROCEDURE: HISTORY OTHER; COMMENT: wide excision left breast carcinoma Dr. Garzon Medical History Medical History Date Comments GERD (gastroesophageal reflux disease) DX:GERD (gastroesophageal reflux disease) Hypertension 04/29/2021 DX:Hypertension Invasive ductal carcinoma of breast, left ([facility] V24, [facility] V28) 02/13/2021 DX:Invasive ductal carcinom a of breast, left (HCC); COMMENT: S/p lumpectomy and radiation. Dx August 2020, on Letrozole Diverticulosis 04/29/2021 DX:Diverticulosi s; COMMENT: CN 01/18/21 Hyperparathyroidism ([facility] V24) 03/27/2021 DX:Hyperparathyroidism (HCC); COMMENT: S/p surgery, [...] complication, without long-term current use of insulin ([facility] V24, [facility] V28) COMPREHENSIVE METABOLIC PANEL Routine 01/17/2025 9:59 AM EDT Left flank discomfort Type 2 diabetes mellitus without complication, without long-term current use of insulin ([facility] V24, [facility] V28) Primary hypertension US PELVIS NON OB [...] complication, without long-term current use of insulin ([facility] V24, [facility] V28) Primary hypertension Mild intermittent asthma, unspecified [...] % LAB CHEMISTRY METHOD 01/17/2025 9:18 PM [facility] Mean Bld Glu Estim. 157 mg/dL LAB CHEMISTRY METHOD 01/17/2025 9:18 PM [facility] Blood Venous blood specimen / Unknown Venipuncture / Unknown 01/17/2025 9:59 AM EDT 01/17/2025 9:59 AM EDT Karen DUPREE LAB BLOOD ORDERABLES Fin al Result [facility] [address] [place] [address], [place] [phone] * (ABNORMAL) Comprehensive metabolic panel (01/17/2025 9:59 AM EDT) [facility] Sodium 138 133 - 145 mmol/L LAB CHEMISTRY METHOD 01/17/2025 3:06 PM [facility] Potassium 4.5 3.5 - 5.5 mmol/L LAB CHEMISTRY METHOD 01/17/2025 3:06 PM [facility] Chloride 104 96 - 110 mmol/L LAB CHEMISTRY METHOD 01/17/2025 3:06 PM [facility] CO2 26 21 - 32 mmol/L LAB CHEMISTRY METHOD 01/17/2025 3:06 PM [facility] Anion Gap 8 3 - 11 LAB CHEMISTRY METHOD 01/17/2025 3:06 PM [facility] Glucose 155(H) 70 - 100 mg/dL LAB CHEMISTRY METHOD 01/17/2025 3:06 PM [facility] BUN 6 5 - 25 mg/dL LAB CHEMISTRY METHOD 01/17/2025 3:06 PM [facility] Creatinine 0.75 0.50 - 1.10 mg/dL LAB CHEMISTRY METHOD 01/17/2025 3:06 PM [facility] eGFR 93 >=60 mL/min/1. 73m2 LAB CHEMISTRY METHOD 01/17/2025 3:06 PM [facility] Comment:Calculation based on the??Chronic Kidney Disease Epidemiology Collaboration (CKD-EPI) equation refit??without adjustment for race. BUN/Creatinine Ratio 8.0 LAB CHEMISTRY METHOD 01/17/2025 3:06 PM [facility] Calcium 9.8 8.5 - 10.5 mg/dL LAB CHEMISTRY METHOD 01/17/2025 3:06 PM [facility] AST (SGOT) 35 10 - 42 unit/L LAB CHEMISTRY METHOD 01/17/2025 3:06 PM [facility] ALT (SGPT) 69(H) 10 - 60 unit/L LAB CHEMISTRY METHOD 01/17/2025 3:06 PM [facility] Alkaline Phosphatase 84 42 - 121 unit/L LAB CHEMISTRY METHOD 01/17/2025 3:06 PM [facility] Total Protein 8.3(H) 6.0 - 8.0 g/dL LAB CHEMISTRY METHOD 01/17/2025 3:06 PM [facility] Albumin 4.1 3.2 - 5.0 g/dL LAB CHEMISTRY METHOD 01/17/2025 3:06 PM [facility] Total Bilirubin 0.4 0.0 - 1.4 mg/dL LAB CHEMISTRY METHOD 01/17/2025 3:06 PM [facility] Blood Venous blood specimen / Unknown Venipuncture / Unknown 01/17/2025 9:59 AM EDT 01/17/2025 9:59 AM EDT Karen DUPREE LAB BLOOD ORDERABLES Fin al Result [facility] [address] [place] [address], [place] [phone] * US Pelvis Non OB Complete w [...] Signed Date: 11/02/2024 17:55 ET Workstation ID: [id number] Transcribed By: Self Edit Transcribed Date: 11/02/2024 [...] Signed Date: 11/02/2024 17:55 ET Workstation ID: [id number] Transcribed By: Self Edit Transcribed Date: 11/02/2024 17:52 ET Nisha Tapia CNM IMG US PROCEDURES Final Result * Trichomonas vaginalis antigen (11/02/2024 10:22 AM EST) Trichomonas vaginalis Negative Negative 11/02/2024 7:00 PM EST [facility] Swab Vaginal structure / Unknown Non-blood Collection / Unknown 11/02/2024 10:22 AM EST 11/02/2024 10:22 AM EST Nisha Tapia CNM LAB MICROBIOLOGY - GENERAL ORDE RABOCTAVIO Final Result [facility] [address] [place] [address], [place] [phone] * Chlamydia trachomatis and Neisseria gonorrhoeae molecular study (11/02/2024 10:22 AM EST) Neisseria gonorrhoeae PCR Negative Negative LAB MOLECULAR DIAGNOSTICS METHOD 11/03/2024 9:00 AM EST [facility] Chlamydia trachomatis PCR Negative Negative LAB MOLECULAR DIAGNOSTICS METHOD 11/03/2024 9:00 AM [facility] Swab Cervix uteri structure / Unknown Non-blood Collection / Unknown 11/02/2024 10:22 AM EST 11/02/2024 10:22 AM EST Nisha Tapia CNM LAB MICROBIOLOGY - GENERAL SLICK RANKIN Final Result Performing Organization Address [facility]/ZIP Co de Phone Number [facility] [address] [place] [address], * Microalbumin creatinine urine ratio (09/28/2024 11:26 AM EST) Pathologist [facility] Creatinine, Urine 165.0 mg/dL LAB CHEMISTRY METHOD 09/28/2024 3:10 PM [facility] Microalb, Ur 15.5 0.0 - 29.0 mg/L LAB CHEMISTRY METHOD 09/28/2024 3:10 PM [facility] Microalb/Creat Ratio 9 <30 mg/g creat LAB CHEMISTRY METHOD 09/28/2024 3:10 PM [facility] Urine Urine specimen obtained by clean catch procedure / Unknown Non-blood Collection / Unknown 09/28/2024 11:26 AM EST 09/28/2024 11:26 AM EST Karen DUPREE LAB URINE ORDERABLES Fin al Result Performing Organization Address [facility]/ZIP Co de Phone Number [facility] [address] [place] [address], * Hm Depression Screening (05/26/2024) [facility] Depression Screening abstracted [facility] Provider HEALTH MAINTENANCE Final Result * Diabetes Eye Exam (02/17/2024) [facility] Diabetes: Annual Retina Eye Exam abstracted [facility] Provider HEALTH MAINTENANCE Final Result * (ABNORMAL) Lipid panel (12/22/2023) [facility] LDL/HDL Ratio 4 0 - 4 Triglycerides 125 0 - 150 mg/dL Cholesterol 214(A) 0 - 200 mg/dL HDL 54 >=40 mg/dL LDL Cholesterol 135(A) 0 - 100 mg/dL Blood Venous blood specimen / Unknown Result [facility] Provider LAB BLOOD ORDERABLES Beatriz l Result * Cervical Cancer Screening: HPV (06/11/2021) [facility] Cervical Cancer Screening: HPV normal, abstracted [facility] Provider HEALTH MAINTENANCE Final Result * Colonoscopy (01/18/2021) [facility] Colonoscopy no interpretation , abstracted Anatomical Region Laterality Modality Other [facility] Provider HEALTH MAINTENANCE Final Result from Last 3 Months or Most Recently Relevant to Health Maintenance Insurance MEDICARE [place]ICAID - [place] Care Teams Plumbing Drafter Relationship Specialty Start Date End Date Dorian Monteiro MD [address] [place] [address] PCP - General Internal Medicine 04/15/22
--- OUTSIDE RECORDS SUMMARY | 2025-01-19 12:31 | XMS_ITS | Encounter Summary ---
Author Organization [facility] Address [address] [place] [address] Care Team Providers Care Card Reader Name Role Phone Dorian Monteiro MD Primary Care Provider [phone] Encounter Details Date Type Department Care Team (Late st Contact Info) Description 01/16/2025 3:30 PM EDT Office Visit Adult Medicine [address] [phone] Karen Betancourt PA [address] [place] [phone] Left flank discomfort (Primary Dx); Primary hypertension; Type 2 diabetes mellitus without complication, without long-term current use of insulin ([facility] V24, [facility] V28); Gastroesophageal reflux disease without esophagitis; Anxiety [...] Surgical History: Procedure Laterality Date APPENDECTOMY PROCEDURE: [place] APPENDECTOMY BREAST LUMPECTOMY Left 11/12/2020 PROCEDURE: HISTORICAL BREAST LUMPECTOMY; COMMENT: [facility] COLONOSCOPY 01/18/2021 PROCEDURE: HISTORICAL COLONOSCOPY; COMMENT: three [...] mmol/L LAB CHEMISTRY METHOD 01/17/2025 3:06 PM [facility] Potassium 4.5 3.5 - 5.5 mmol/L LAB CHEMISTRY METHOD 01/17/2025 3:06 PM [facility] Chloride 104 96 - 110 mmol/L LAB CHEMISTRY METHOD 01/17/2025 3:06 PM [facility] CO2 26 21 - 32 mmol/L LAB CHEMISTRY METHOD 01/17/2025 3:06 PM [facility] Anion Gap 8 3 - 11 LAB CHEMISTRY METHOD 01/17/2025 3:06 PM [facility] Glucose 155(H) 70 - 100 mg/dL LAB CHEMISTRY METHOD 01/17/2025 3:06 PM [facility] BUN 6 5 - 25 mg/dL LAB CHEMISTRY METHOD 01/17/2025 3:06 PM [facility] Creatinine 0.75 0.50 - 1.10 mg/dL LAB CHEMISTRY METHOD 01/17/2025 3:06 PM [facility] eGFR 93 >=60 mL/min/1. 73m2 LAB CHEMISTRY METHOD 01/17/2025 3:06 PM [facility] Comment:Calculation based on the??Chronic Kidney Disease Epidemiology Collaboration (CKD-EPI) equation refit??without adjustment for race. BUN/Creatinine Ratio 8.0 LAB CHEMISTRY METHOD 01/17/2025 3:06 PM [facility] Calcium 9.8 8.5 - 10.5 mg/dL LAB CHEMISTRY METHOD 01/17/2025 3:06 PM [facility] AST (SGOT) 35 10 - 42 unit/L LAB CHEMISTRY METHOD 01/17/2025 3:06 PM [facility] ALT (SGPT) 69(H) 10 - 60 unit/L LAB CHEMISTRY METHOD 01/17/2025 3:06 PM EDT [facility] Alkaline Phosphatase 84 42 - 121 unit/L LAB CHEMISTRY METHOD 01/17/2025 3:06 PM EDT [facility] Total Protein 8.3(H) 6.0 - 8.0 g/dL LAB CHEMISTRY METHOD 01/17/2025 3:06 PM EDT [facility] Albumin 4.1 3.2 - 5.0 g/dL LAB CHEMISTRY METHOD 01/17/2025 3:06 PM EDT [facility] Total Bilirubin 0.4 0.0 - 1.4 mg/dL LAB CHEMISTRY METHOD 01/17/2025 3:06 PM EDT [facility] Blood Venous blood specimen / Unknown Venipuncture / Unknown 01/17/2025 9:59 AM EDT 01/17/2025 9:59 AM EDT Karen DUPREE LAB BLOOD ORDERABLES Fin al Result [facility] [address] [place] [address], * (ABNORMAL) Hemoglobin A1c (01/17/2025 9:59 AM EDT) Hemoglobin A1C 7.1(H) <6.5 % LAB CHEMISTRY METHOD 01/17/2025 9:18 PM EDT [facility] Mean Bld Glu Estim. 157 mg/dL LAB CHEMISTRY METHOD 01/17/2025 9:18 PM EDT [facility] Blood Venous blood specimen / Unknown Venipuncture / Unknown 01/17/2025 9:59 AM EDT 01/17/2025 9:59 AM EDT Karen DUPREE LAB BLOOD ORDERABLES Fin al Result [facility] [address] [place] [address], documented in this encounter Visit Diagnoses Diagnosis Left flank discomfort- Primary Primary hypertension Unspecified essential hypertension Type 2 diabetes mellitus without complication, without long-term current use of insulin ([facility] V24, [facility] V28) Gastroesophageal reflux disease without esophagitis Esophageal [...] 01/16/2025 documented in this encounter Care Teams Card Reader Relationship Specialty Start Date End Date Dorian Monteiro MD [address] [place] [address] PCP - General Internal Medicine 04/15/22 documented as of this encounter
--- OUTSIDE RECORDS SUMMARY | 2025-01-19 12:31 | XMS_ITS | Clinical Summary ---
Author Organization [facility] Address [address] [place] [address] Care Team Providers Care Orchestra Teacher Name Role Phone Unavailable Primary Care Provider [...]
== END 2025-01-19 10:35 | disposition home or self-care (01) ==
LOC: HO.MAMMO 10:34
PROVIDERS: Absent Provider Internal Medicine Medical Oncology; PCP Internal Medicine; Visit Provider Surgery
DX: N63.24 Unspecified lump in the left breast, lower inner quadrant (principal); D05.12 Intraductal carcinoma in situ of left breast; Z85.3 Personal history of malignant neoplasm of breast; R92.322 Mammographic fibroglandular density, left breast
CPT/HCPCS: 76642; 77062; 77066; 99212

== ENCOUNTER → 2025-01-19 10:36 | Outpatient (BNV) | payer MEDICARE, MEDICAID, SELFPAY | PROVIDERS: Absent Provider Internal Medicine Medical Oncology; PCP Internal Medicine; Visit Provider Internal Medicine | DX: Z85.3 Personal history of malignant neoplasm of breast (principal) | CPT/HCPCS: 76642; 77066; G0279 ==

== ENCOUNTER 2025-05-08 12:56 | Outpatient (REF) | payer MEDICARE, MEDICAID, SELFPAY ==
--- NOTE | ~2025-05-08 | MM_ITS ---
EXAMINATION: DXA BONE DENSITY AXIAL HISTORY: Follow up on osteoporosis M81.0 TECHNIQUE: [place] [employer] Dual energy absorptiometry (DEXA) of the lumbar spine, total left hip, and femoral neck was performed. COMPARISON: Comparison is made with the prior examination dated 11/06/2022. FINDINGS: The bone mineral density of the lumbar spine is 0.882 g/cm2, corresponding to a T-score of -2.5, and a Z-score of -1.7. This is indicative of osteoporosis. This represents a BMD change of 9.2% compared to the prior exam. This is statistically significant. The bone mineral density of the left total hip is 0.978 g/cm2, corresponding to a T-score of -0.2, and a Z-score of 0.2. This is indicative of normal bone mineral density. This represents a BMD change of 6.7% compared to the prior exam. This is not statistically significant. The bone mineral density of the left femoral neck is 0.784 g/cm2, corresponding to a T-score of -1.8, and a Z-score of -1.0. This is indicative of osteopenia. This represents a BMD change of 1.3% compared to the prior exam. FRACTURE RISK: The FRAX index suggests a ten year probability of major osteoporotic fracture of 5.8%, and of hip fracture 0.7%. MM/XR DEXA axial skeleton IMPRESSION: Based on bone mineral density, and according to World Health Organization (WHO) criteria, the diagnosis is consistent with osteoporosis. Statistically, 68% of repeat scans fall within 1 SD (+/- 0.010 g/cm2 for AP spine L1-L4) and 1 SD (+/- 0.012 g/cm2 for femur total) FRAX is a trademark of the [employer] [place] for Metabolic Bone Disease, a World Health Organization (WHO) Collaborating Center. Electronically signed by: Telly Luna MD 05/08/2025 01:41 PM EDT
--- OUTSIDE RECORDS SUMMARY | 2025-05-08 13:36 | XMS_ITS | Clinical Summary ---
Author Organization [facility] Address [address] [place] [address] Care Team Providers Care Audit Clerk Name Role Phone Unavailable Primary Care Provider [...] 79 07/01/2022 8:14 AM EDT Temperature 36.9 C (98.5 F) 07/01/2022 8:14 AM EDT Respiratory Rate - - Oxygen Saturation 98% [...] season) 2024 03/30/2021, 03/09/2021 Influenza Vaccine (#1) 2025 DTap / Tdap / Td (2 - Td or Tdap) 03/27/2031 03/27/2021 Pneumococcal Vaccine Aged Out No long er eligible based on patient's age to complete this topic RSV Ped < 20 months Aged Out No longe r eligible based on patient's age to complete this topic Neda Cyr TPL/AUTO Self 1965 [address] [place] [address] Neda Cyr TPL/AUTO Self 1965 [address] [place] [address]
--- OUTSIDE RECORDS SUMMARY | 2025-05-08 13:36 | XMS_ITS | Clinical Summary ---
Author Organization [facility] Address [address] [place] [address] Care Team Providers Care Investigator Operator Name Role Phone Unavailable Primary Care Provider Unavailabl e Social History Tobacco Use Types Packs/Day Years Used Date Smoking Tobacco: Never Assessed Comments Unknown Sex and Gender Information Value Date Recorded Sex Assigned at Not on file Legal Sex Female 3:14 PM EDT Gender Identity Not on file Sexual Orientation Not on file Plan of Treatment Health Maintenance Due Date Last Done Comments Hepatitis C Virus Screening 1967 HIV Screening 1980 DTaP/Tdap/Td Vaccines (1 - Tdap) 1986 Hepatitis B Vaccines (1 of 3 - 19+ 3-dose series) 04/12 Pneumococcal Vaccines 50+ (1 of 1 - PCV) 2017 Zoster (Shingles) Vaccine (1 of 2) 2017 COVID-19 Vaccine (1 - 2023- season) 2024
--- OUTSIDE RECORDS SUMMARY | 2025-05-08 13:37 | XMS_ITS | Encounter Summary ---
Author Organization [facility] Address [address] [place] [address] Phone Care Team Providers Care Broadcast Maintenance Technician Name Role Phone Yamilka Ruiz MD Primary Care Provider [phone] Encounter Details Date Type Department Care Team (Late st Contact Info) Description 01/04/2021 Ancillary Orders [facility],Outside Imaging [address] [place] [address] System, Provider Not In, [place] [address] Social History Tobacco Use Types Packs/Day Years Used Date Smoking Tobacco: Never Assessed Comments Unknown Sex and Gender Information Value Date Recorded Sex Assigned at Not on file Legal Sex Female 2:19 PM EDT Gender Identity Not on file Sexual Orientation Not on file documented as of this encounter Plan of Treatment Not on file documented as of this encounter Results * Mammogram Outside (No Interpretation) (02/13/2017 12:00 AM EDT) Narrative SYSTEMGENERATED, DOCUMENTATION - 01/04/2021 11:50 AM EDT This study is for PACS storage only and not for interpretation. us Provider Not In System PhD IMG OUTSIDE IMAGING W /OUT INTERPRETATION Final Result documented in this encounter Visit Diagnoses Not on filedocumented in this encounter Care Teams Broadcast Maintenance Technician Relationship Specialty Start Date End Date Yamilka Ruiz MD [address] [place] [address] PCP - General Internal Medicine 01/02/21 documented as of this encounter Additional Source Comments The information contained in this document represents components of the legal health record. It is not the complete legal health record.[facility]
--- OUTSIDE RECORDS SUMMARY | 2025-05-08 13:37 | XMS_ITS ---
Author Name [facility] Organization Unknown Encounters Encounter Type Encounter Reason Primary Diagnosis Location Date Ambulatory [facility] 07/22/2024 Care Team Organization Name Specialty Phone Email Start Date End Da te [facility] 02/04/2025 [facility] Dorian Monteiro Primary Care 12/17/202205/12 [facility] Sosa Fernandez Primary Care 08/19/20222023
--- OUTSIDE RECORDS SUMMARY | 2025-05-08 13:37 | XMS_ITS | Clinical Summary ---
Author Organization [facility] [address] [facility] Address [address] [facility] [place] [address] Phone Care Team Providers Care Speech Assistant Name Role Phone Dorian Monteiro MD Primary Care Provider Allergies Active Allergy Reactions Criticality Noted Date Comments Iodinated Contrast Media 04/29/2021 Penicillins Rash Medium 02/13/2021 Medications anastrozole (ARIMIDEX) 1 mg Take 1 mg by mouth daily. Active blood-glucose meter (BLOOD GLUCOSE MONITORING [facility]) Use to check blood sugar once a day 4 Active LOW-DOSE ASPIRIN ORAL Take 81 mg by mouth daily. Active multivitamin (MULTIPLE VITAMINS ORAL) Take by mouth daily. Active clobetasoL (TEMOVATE) 0.05 % ointment APPLY 1 FINGERTIP UNIT TOPICALLY TO AFFECTED AREA AT NIGHT X4 WEEKS THEN EVERY OTHER NIGHT X4 WEEKS 90 g 2 5 Active metFORMIN XR (GLUCOPHAGE-XR) 500 mg 24 [...] each day. 90 tablet 1 5 Active FreeStyle Lancets 28 gauge lancets USE TO TEST BLOOD SUGAR ONCE DAILY 100 each 1 5 Active blood sugar diagnostic (FreeStyle Lite Strips) test strip Use to check blood sugar once a day 100 each 1 5 Active amoxicillin (AMOXIL) 500 mg tablet Take 1 tablet (500 mg total) by mouth 3 (three) times a day. 5 Active Ventolin HFA 90 mcg/actuation inhaler Inhale 2 puffs by mouth every 4 (four) hours if needed for wheezing or shortness of breath. 18 each 2 5 02/23/20 26 Active Active Problems Problem Noted Date Diagnosed Date Malignant neoplasm of left f emale breast ([facility] V24, [facility] V28) 02/21/2025 Mild intermittent asthma 09/28/2024 LSC (lichen simplex [...] complication, without long-term current use of insulin ([facility] V24, [facility] V28) 11/20/2021 Gastroesophageal reflux disease without esophagi tis 04/29/2021 Primary hypertension 04/29/2021 Encounters Date Type Department Care Team Description 02/22/2025 3:00 PM EDT Office Visit Adult Medicine [address] [phone] Dorian Monteiro MD Primary hypertension (Primary Dx); Type 2 diabetes mellitus without complication, without long-term current use of insulin ([place] V24, [facility] V28); Mild intermittent asthma without complication; Fatty liver; Gastroesophageal reflux disease without esophagitis; Anxiety and depression; Malignant neoplasm of left female breast, unspecified estrogen receptor status, unspecified site of breast ([facility] V24, [facility] V28); Mixed hyperlipidemia; Transaminitis from Last 3 Months Immunizations Name Administration Dates Next Due Pfizer SARS-CoV-2 COVID-19, mRNA, LNP-S, preservative free 03/30/2021,03/09/2021 Tdap Tetanus diptheria acell ular pertussis (Boostrix; Adacel) 7yo and older 03/27/2021 Surgical History Surgery Date Site/Laterality Comments BREAST LUMPECTOMY 11/12/2020 Left PROCEDURE: HISTORICAL BREAST LUMPECTOMY; COMMENT: [facility] OTHER SURGICAL HISTORY PROCEDURE: HISTORICAL PARATHYROID SURGERY APPENDECTOMY PROCEDURE: [place] APPENDECTOMY COLONOSCOPY 01/18/2021 PROCEDURE: HISTORICAL COLONOSCOPY; COMMENT: three polyps, diverticulosis, internal hemorrhoids OTHER SURGICAL HISTORY 11/29/2020 PROCEDURE: HISTORY OTHER; COMMENT: wide excision left breast carcinoma Dr. Garzon Medical History Medical History Date Comments GERD (gastroesophageal reflux disease) DX:GERD (gastroesophageal reflux disease) Hypertension 04/29/2021 DX:Hypertension Invasive ductal carcinoma of breast, left ([place] V24, [facility] V28) 02/13/2021 DX:Invasive ductal carcinom a of breast, left (HCC); COMMENT: S/p lumpectomy and radiation. Dx August 2020, on Letrozole Diverticulosis 04/29/2021 DX:Diverticulosi s; COMMENT: CN 01/18/21 Hyperparathyroidism ([place] V24) 03/27/2021 DX:Hyperparathyroidism (HCC); COMMENT: S/p surgery, [...] Sign Reading Time Taken Comments Blood Pressure 118/72 02/22/2025 2:32 PM EDT Pulse 70 02/22/2025 2:32 PM EDT Temperature 36.3 C (97.4 F) 02/22/2025 2:32 PM EDT Respiratory Rate 14 02/22/2025 2:32 PM EDT Oxygen Saturation - - Inhaled Oxygen Concentration - - Weight 85.7 kg (189 lb) 02/22/2025 2:32 PM EDT Height 165.1 cm (5' 5 ) 02/22/2025 2:32 PM EDT Body Mass Index 31.45 02/22/2025 2:32 PM EDT Plan of Treatment Upcoming Encounters Date Type Department Care Team (Late st Contact Info) Description 08/08/2025 9:30 AM EDT Office Visit Adult Medicine [address] [phone] Karen Betancourt PA [address] [place] [phone] Health Maintenance Due Date Last Done Comments Diabetes: Annual Foot Exam 1977 Hepatitis B Vaccines (1 of 3 - 19+ 3-dose series) 1986 Pneumococcal Vaccine: 50+ Years (1 of 2 - PCV) 1986 Zoster Vaccines (1 of 2) 1986 HIV Screening 09/13/2022 Hepatitis C Screening 09/13/2022 Medicare Annual Wellness Visit 09/13/2022 Osteoporosis Screening (Bone Density Screening) 09/13/2022 Social Influencers of Health Screening 09/13/2022 COVID-19 Vaccine ( season) 2024 10/15/2021, 03/30/2021, 03/09/2021, Additional history exists Depression Screening 10/12/2024 05/26/2024 Diabetes: Annual Retina Eye Exam 02/16/2025 02/17/2024 Influenza Vaccine (#1) 2025 Diabetes: Blood Sugar Control Test (HGBA1C) 07/19/2025 01/17/2025, 09/28/2024, 03/03/2024, Additional history exists Diabetes: Annual Urine Albumin-Creatinine Ratio (uACR) 09/28/2025 09/28/2024, 12/23/2023 Diabetes: Annual GFR (Glomerular Filtration Rate) 01/17/2026 01/17/2025, 09/28/2024, 03/03/2024, Additional history exists Hypertension/CHF/CAD Annual BMP Blood Test 01/17/2026 01/17/2025, 09/28/2024, 03/03/2024, Additional history exists Colorectal Cancer Screening: Colonoscopy 01/18/2026 01/18/2021 Cervical Cancer Screening: HPV 06/11/2026 06/11/2021 Breast Cancer Screening 01/19/2027 01/19/2025, 01/19 Cholesterol Screening (Lipid Panel) 12/21/2028 12/22/2023 DTaP,Tdap,and [...] Procedure Name Priority Date/Time Associated Diagnosis Comments EXTERNAL MAMMOGRAM REPORT 01/19/2025 COMPREHENSIVE METABOLIC PANEL Routine 01/17/2025 9:59 AM EDT Left flank discomfort Type 2 diabetes mellitus without complication, without long-term current use of insulin ([facility] V24, [facility] V28) Primary hypertension HEMOGLOBIN A1C Routine 01/17/2025 9:59 AM EDT Type 2 diabetes mellitus without complication, without long-term current use of insulin ([facility] V24, [facility] V28) MICROALBUMIN CREATININE URINE RATIO Routine 09/28/2024 11:26 AM EST Anxiety and depression Type 2 diabetes mellitus without complication, without long-term current use of insulin ([facility] V24, [facility] V28) Primary hypertension Mild intermittent asthma, unspecified whether complicated Osteoporosis with current pathological fracture with routine healing, unspecified osteoporosis type, subsequent encounter DEPRESSION SCREENING Routine 05/26/2024 DIABETES EYE EXAM Routine 02/17/2024 LIPID PANEL Routine 12/22/2023 HPV Routine 06/11/2021 COLONOSCOPY Routine 01/18/2021 from Last 3 Months or Most Recently Relevant to Health Maintenance Results * External Mammogram Report (01/19/2025) Anatomical Region Laterality Modality Mammography us Provider [facility] BI PROCEDURES Final Result * (ABNORMAL) Hemoglobin A1c (01/17/2025 9:59 AM EDT) Hemoglobin A1C 7.1(H) <6.5 % LAB CHEMISTRY METHOD 01/17/2025 9:18 PM EDT [facility] Mean Bld Glu Estim. 157 mg/dL LAB CHEMISTRY METHOD 01/17/2025 9:18 PM EDT [facility] Blood Venous blood specimen / Unknown Venipuncture / Unknown 01/17/2025 9:59 AM EDT 01/17/2025 9:59 AM EDT Karen DUPREE LAB BLOOD ORDERABLES Fin al Result [facility] [address] [place] [address], * (ABNORMAL) Comprehensive metabolic panel (01/17/2025 9:59 AM EDT) Pathologist [facility] Sodium 138 133 - 145 mmol/L [...] [facility] Comment:Calculation based on the Chronic Kidney Disease Epidemiology Collaboration (CKD-EPI) equation refit without adjustment for race. BUN/Creatinine Ratio 8.0 LAB [...] DUPREE LAB BLOOD ORDERABLES Fin al Result [facility] [address] [place] [address], * Microalbumin creatinine urine ratio (09/28/2024 11:26 AM EST) [facility] Creatinine, Urine 165.0 mg/dL LAB CHEMISTRY METHOD 09/28/2024 3:10 PM EST [facility] Microalb, Ur 15.5 0.0 - 29.0 mg/L LAB CHEMISTRY METHOD 09/28/2024 3:10 PM EST [facility] Microalb/Creat Ratio 9 <30 mg/g creat LAB CHEMISTRY METHOD 09/28/2024 3:10 PM EST [facility] Urine Urine specimen obtained by clean catch procedure / Unknown Non-blood Collection / Unknown 09/28/2024 11:26 AM EST 09/28/2024 11:26 AM EST Karen DUPREE LAB URINE ORDERABLES Fin al Result [facility] [address] [place] [address], [place] [phone] * Depression Screening (05/26/2024) [facility] Depression Screening abstracted Historical Provider MD HEALTH MAINTENANCE Final Result * Diabetes Eye Exam (02/17/2024) [facility] Diabetes: Annual Retina Eye Exam abstracted Historical Provider MD HEALTH MAINTENANCE Final Result * (ABNORMAL) Lipid panel (12/22/2023) [facility] LDL/HDL Ratio 4 0 - 4 Triglycerides 125 0 - 150 mg/dL Cholesterol 214(A) 0 - 200 mg/dL HDL 54 >=40 mg/dL LDL Cholesterol 135(A) 0 - 100 mg/dL Blood Venous blood specimen / Unknown Historical Provider LAB BLOOD ORDERABLES Beatriz l Result * Cervical Cancer Screening: HPV (06/11/2021) Pathologist [facility] Cervical Cancer Screening: HPV normal, abstracted Historical Provider HEALTH MAINTENANCE Final Result * Colonoscopy (01/18/2021) Pathologist [facility] Colonoscopy no interpretation , abstracted Anatomical Region Laterality Modality Other Historical Provider HEALTH MAINTENANCE Final Result from Last 3 Months or Most Recently Relevant to Health Maintenance Insurance MEDICARE MEDICAID - [place] Care Teams Speech Assistant Relationship Specialty Start Date End Date Dorian Monteiro MD [address] [place] [address] PCP - General Internal Medicine 04/15/22
== END 2025-05-08 12:57 | disposition home or self-care (01) ==
LOC: HO.MAMMO 12:56
PROVIDERS: Visit Provider Internal Medicine Medical Oncology
DX: M81.0 Age-related osteoporosis without current pathological fracture (principal)
CPT/HCPCS: 77080

== ENCOUNTER → 2025-05-08 13:00 | Outpatient (BNV) | payer MEDICARE, MEDICAID, SELFPAY | PROVIDERS: Visit Provider Radiology Diagnostic Radiology | DX: E28.39 Other primary ovarian failure (principal) | CPT/HCPCS: 77080 ==

== ENCOUNTER 2025-10-03 13:04 | Outpatient (AMB) | payer MEDICARE, MEDICAID, SELFPAY ==
--- NOTE | 2025-10-03 13:23 | A.OFFVIS_ITS ---
Vital Signs 3 10/03/25 13:25 Height 5 ft 5 in Weight 199 lb BMI 33.1 BP 127/86 Blood Pressure Location Rt radial Position Sitting Pulse 98 Intake Visit Reasons: 6 month breast exam Intake Note: Patient is seen in office for breast pain. Pt c/o: admits to right breast pain towards the axilla for the past week, pain worse last night, denies redness, discharge, or signs of infection Head Porter Required: No Accompanied by: Self / Same As Patient Allergies Penicillins (PENICILLINS) Allergy (Intermediate, Verified 10/03/25 13:25) rash IV dye Allergy (Unknown, Uncoded 10/03/25 13:25) Unknown HPI Comments Details: 60-year-old female patient returning for breast cancer follow-up examination. She reports some right-sided breast pain along the lower inner quadrant which started approximately 7-10 days ago. She was diagnosed with a left breast invasive ductal carcinoma, grade 1-2 with ductal carcinoma in-situ grade 2, ER/AZ positive, HER2 Rey negative. She underwent a left breast lumpectomy with sentinel node biopsy of the left breast on 11/12/2020. Pathology confirmed a 0.9 cm invasive ductal carcinoma with satellite carcinoma in-situ, grade 2, ER/AZ positive, HER2 Rey negative, 0/2 sentinel nodes revealed metastatic disease (pT1 N0 MX). The ductal carcinoma extended to within microns of the margin therefore on 11/29/2020 she underwent a re-excision which revealed benign breast parenchyma with no residual carcinoma or in-situ carcinoma. Radiation therapy was performed at [facility] and completed on 02/27/2021. She was evaluated by Dr. Small. Oncotype DX score was 15 with distant recurrence of 4%. Benefits of chemotherapy was less than 1%. She was started on letrozole 2.5 mg daily but subsequently switched to anastrozole 1 mg p.o. daily. Her most recent mammogram of 01/19/2025 along with a diagnostic ultrasound revealed no significant changes from the prior study (BI-RADS 1). Routine follow up in 1 year is recommended. [facility] Medical History Prediabetes Breast cancer, left VASQUEZ (dyspnea on exertion) Chest pain, atypical Hyperparathyroidism History of iron deficiency anemia GERD (gastroesophageal reflux disease) Hypertension Surgical History H/O breast surgery Hx of parathyroidectomy Hx of appendectomy History of dental surgery Family History Other No family history of cancer Social History Household Members: Children [facility] Are you a primary hospice spiritual care coordinator to a significant other at home: No Do you presently have visiting nurse or other home services: No Alcohol intake: never Patient Tobacco Use Status: Never used Tobacco Second Hand Smoke Exposure: No service: No Current occupational status: unemployed Review of Systems Const All systems reviewed & are unremarkable except as noted in HPI and below Skin/Breast Denies breast skin changes, Reports breast pain and Denies breast mass Psych Reports as per HPI and Reports mood swings Physical Exam Const General: comfortable and well developed Nutritional Appearance: well nourished Orientation/consciousness: patient oriented x3 Limitations: no limitations Neck Neck: Yes no lymphadenopathy, Yes trachea midline and Yes no JVD Chest Other: Left breast with a well-healed incision in the upper outer quadrant, no new skin change, nipple retraction, nipple discharge, or enlarged lymph nodes. No new palpable masses appreciated. Right breast with no skin change, nipple retraction, nipple discharge, palpable mass, or enlarged lymph node. Chest palpation & inspection: normal inspection of the chest Chest/axillae images: 2 1. Well-healed incision upper outer quadrant 2. Area of increased breast pain right breast lower inner quadrant along the inframammary crease. No palpable mass appreciated in this location Resp Effort & Inspection: normal respiratory effort, no audible wheezes and no cough Skin General skin exam: no rashes or lesions noted Neuro Other: Mobility Assessment: 1. 3 meter assessment time (seconds) 5 2. Gait observations: Normal balance and gait General: patient oriented x3 Extrem General: Yes no clubbing, cyanosis or edema Assessment & Plan Assessment & Plan (1) Breast cancer, left: Comment: Anxious to have colonoscopy, Code(s): C50.912 - Malignant neoplasm of unspecified site of left female breast Category: Medical Qualifiers: Breast location: upper outer quadrant of breast Estrogen receptor status: positive Patient sex: female Qualified Code(s): C50.412 - Malignant neoplasm of upper-outer quadrant of left female breast; Z17.0 - Estrogen receptor positive status [ER+] (2) Invasive ductal carcinoma of breast: Code(s): C50.919 - Malignant neoplasm of unspecified site of unspecified female breast Category: Medical Qualifiers: Laterality: left Qualified Code(s): C50.912 - Malignant neoplasm of unspecified site of left female breast (3) Breast pain, right: Comment: Lower inner quadrant Code(s): N64.4 - Mastodynia Category: Medical Plan 60-year-old female patient with a known history of invasive ductal carcinoma of the left breast presenting with a new symptoms in the right breast along the inframammary crease in the medial right breast. Examination today revealed no suspicious findings in this location. The remainder of her breast exam was normal as well. I recommended a diagnostic mammogram as well as right breast ultrasound to evaluate this location. Follow up will be based on these findings. Routine exam in 6 months is recommended as well. Orders: Orders 2 MM diagnostic mammo BI Today N64.4 - Mastodynia US breast RT limited Today N64.4 - Mastodynia Coding Level of Care Code Est Pt Level 3 (57368) Diagnoses Malignant neoplasm of upper-outer quadrant of left breast in female, estrogen receptor positive C50.412; Z17.0 Breast location: upper outer quadrant of breast Estrogen receptor status: positive Patient sex: female Infiltrating ductal carcinoma of left breast C50.912 Laterality: left Breast pain, right N64.4
[2025-10-03 13:25] VITALS: BP 127/86; PULSE 98; BMI 33.1
--- OUTSIDE RECORDS SUMMARY | 2025-10-03 14:07 | XMS_ITS | Encounter Summary ---
Author Organization [facility] Address [address] [place] [phone] Phone Care Team Providers Care Superintendent Institution Name Role Phone Yamilka Ruiz MD Primary Care Provider [phone] Encounter Details Date Type Department Care Team (Late st Contact Info) Description 01/04/2021 Ancillary Orders [facility],Outside Imaging [address], [place] [id number] System, Provider Not In, [place] [address] Social History Tobacco Use Types Packs/Day Years Used Date Smoking Tobacco: Never Assessed Comments Unknown Sex and Gender Information Value Date Recorded Sex Assigned at Not on file Legal Sex Female 2:19 PM EDT Gender Identity Not on file Sexual Orientation Not on file documented as of this encounter Plan of Treatment Not on file documented as of this encounter Results * NM Other Outside (No Interpretation) (11/12/2020 12:00 AM EST) Narrative SYSTEMGENERATED, DOCUMENTATION - 01/04/2021 11:52 AM EDT This study is for PACS storage only and not for interpretation. us Provider Not In System PhD IMG OUTSIDE IMAGING W /OUT INTERPRETATION Final Result documented in this encounter Visit Diagnoses Not on filedocumented in this encounter Care Teams Superintendent Institution Relationship Specialty Start Date End Date Yamilka Ruiz MD [address] [place] [address] PCP - General Internal Medicine 01/02/21 documented as of this encounter Additional Source Comments The information contained in this document represents components of the legal health record. It is not the complete legal health record.[facility]
--- OUTSIDE RECORDS SUMMARY | 2025-10-03 14:07 | XMS_ITS | Clinical Summary ---
Author Organization [facility] Address [address] [address] Phone Care Team Providers Care Wind Field Service Manager Name Role Phone Yamilka Ruiz MD Primary Care Provider [phone] Allergies Active Allergy Reactions Criticality Noted Date Comments Iodinated Contrast Media Unknown 01/10/2021 Penicillins Rash Low 01/10/2021 Medications multivitamins with minerals-iron (THERA-VM) Tab Take 1 tablet by mouth daily. Active dimethicone-col loidal oatmeal (AVEENO) 1.3 % Lotn Apply 1 application topically 3 (three) times a day. 1 Tube 2 1 Active hydrocortisone 2.5 % creamIndication s:Malignant neoplasm of upper-outer quadrant of left breast in female, estrogen receptor positive Apply topically 2 (two) times a day. 28 g 1 Active letrozole (FEMARA) 2.5 mg tablet Take 2.5 mg by mouth daily. 1 04/24/20 26 Active Active Problems Problem Noted Date Diagnosed Date Malignant neoplasm of upper- outer quadrant of left breast in female, estrogen receptor positive 01/10/2021 Social History Tobacco Use Types Packs/Day Years Used Date Smoking Tobacco: Never Smokeless Tobacco: Never Alcohol Use Standard Drinks/Week Comments Not Currently 0 (1 standard drink = 0.6 oz pur e alcohol) Education Answer Date Recorded Are you interested in more education? Not on kiya e 02/06/2023 Are you concerned about learning? Not on file 02/06/2023 No 02/06/2023 No 02/06/2023 Digital Access Answer Date Recorded No 03/07/2023 No 03/07/2023 No 03/07/2023 Reliable internet access at home? Not on file 03/07/2023 Device with a working camera? Not on file Comments No Sex and Gender Information Value Date Recorded Sex Assigned at Not on file Legal Sex Female 2:19 PM EDT Gender Identity Not on file Sexual Orientation Not on file Last Filed Vital Signs Vital Sign Reading Time Taken Comments Blood Pressure 121/74 04/25/2021 2:53 PM EDT Pulse 79 04/25/2021 2:53 PM EDT Temperature 36.7 C (98.1 F) 01/10/2021 2:42 PM EDT Respiratory Rate - - Oxygen Saturation 98% 04/25/2021 2:53 PM EDT Inhaled Oxygen Concentration - - Weight 87.3 kg (192 lb 6.4 oz) 02/26/2021 8:31 A M EDT Height - - Body Mass Index - - Plan of Treatment Health Maintenance Due Date Last Done Comments Adult Td,Tdap Booster 1967 LIPID PANEL 1967 DEPRESSION SCREENING 1979 HEPATITIS C SCREENING 1985 HIV ONE-TIME SCREENING (18-65 YEARS) 1985 PNEUMOCOCCAL VACCINES (50+ years) (1 of 2 - PCV) 1986 ZOSTER VACCINES (1 of 2) 1986 PAP SMEAR 1988 COLOGUARD 2012 COLONOSCOPY 2012 COLORECTAL CANCER SCREENING 2012 FIT TEST 2012 FOBT 2012 SIGMOIDOSCOPY 2012 VIRTUAL COLONOSCOPY 2012 MAMMOGRAM 11/12/2022 11/12/2020, 10/12, 10/18/2020, Additional history exists INFLUENZA VACCINE (#1) 2025 COVID-19 VACCINE (2 - 2024- season) 2025 02/06/2021 RSV VACCINE (1 - 1-dose 75+ series) 2042 SMOKING STATUS SCREENING (Once After 26 Yrs) Completed 01/10/2021 HEPATITIS A VACCINES Aged Out No long er eligible based on patient's age to complete this topic HIB VACCINES Aged Out No longer eligi ble based on patient's age to complete this topic MENINGOCOCCAL VACCINES (ACWY) Aged Out No longer eligible based on patient's age to complete this topic MENINGOCOCCAL VACCINES (B) Aged Out N o longer eligible based on patient's age to complete this topic Medical Devices Not on file Procedures Procedure Name Priority Date/Time Associated Diagnosis Comments BI MAMMOGRAM OUTSIDE (NO INTERPRETATION) Routine 11/12/2020 12:05 AM EST from Last 3 Months or Most Recently Relevant to Health Maintenance Results * Mammogram Outside (No Interpretation) (11/12/2020 12:05 AM EST) Narrative SYSTEMGENERATED, DOCUMENTATION - 01/04/2021 11:53 AM EDT This study is for PACS storage only and not for interpretation. us Provider Not In System PhD IMG OUTSIDE IMAGING W /OUT INTERPRETATION Final Result from Last 3 Months or Most Recently Relevant to Health Maintenance Insurance [employer] [facility] [place] [address] [place] [address] ALLANCE ACO [facility] ALLANCE ACO [facility] ACO Care Teams Wind Field Service Manager Relationship Specialty Start Date End Date Yamilka Ruiz MD 1959 [facility] [place] [id number] PCP - General Internal Medicine 01/02/21 Additional Source Comments The information contained in this document represents components of the legal health record. It is not the complete legal health record.[facility]
--- OUTSIDE RECORDS SUMMARY | 2025-10-03 14:07 | XMS_ITS | Encounter Summary ---
Author Organization [facility] Address [address] [place] [address] Phone Care Team Providers Care Disease Intervention Specialist Name Role Phone Yamilka Ruiz MD Primary Care Provider [phone] Encounter Details Date Type Department Care Team (Late st Contact Info) Description 01/04/2021 Ancillary Orders [facility],Outside Imaging [address] [place] [address] System, Provider [place] In, [place] [address] Social History Tobacco Use Types Packs/Day Years [...] on filedocumented in this encounter Care Teams Disease Intervention Specialist Relationship Specialty Start Date End Date Yamilka Ruiz MD [address] [facility] [place] [address] PCP - General Internal Medicine 01/02/21 documented as of this encounter Additional Source Comments The information contained in this document represents components of the legal health record. It is not the complete legal health record.[facility]
--- OUTSIDE RECORDS SUMMARY | 2025-10-03 14:07 | XMS_ITS | Encounter Summary ---
Author Organization [facility] Address [address] [place] [address] Phone Care Team Providers Care Corrugated Fastener Driver Name Role Phone Yamilka Ruiz MD Primary Care Provider [phone] Encounter Details Date Type Department Care Team (Late st Contact Info) Description 01/04/2021 Ancillary Orders [facility],Outside Imaging [address] [place], [place] [id number] System, Provider [place] In, [place] [address] Social History Tobacco Use Types Packs/Day Years Used Date Smoking Tobacco: Never Assessed Comments Unknown Sex and Gender Information Value Date Recorded Sex Assigned at Not on file Legal Sex Female 2:19 PM EDT Gender Identity Not on file Sexual Orientation Not on file documented as of this encounter Plan of Treatment Not on file documented as of this encounter Results * US Breast Outside (No Interpretation) (10/26/2020 12:00 AM EST) Narrative SYSTEMGENERATED, DOCUMENTATION - 01/04/2021 11:54 AM EDT This study is for PACS storage only and not for interpretation. us Provider Not In System PhD IMG OUTSIDE IMAGING W /OUT INTERPRETATION Final Result documented in this encounter Visit Diagnoses Not on filedocumented in this encounter Care Teams Corrugated Fastener Driver Relationship Specialty Start Date End Date Yamilka Ruiz MD [address] [place] [address] PCP - General Internal Medicine 01/02/21 documented as of this encounter Additional Source Comments The information contained in this document represents components of the legal health record. It is not the complete legal health record.[facility]
--- OUTSIDE RECORDS SUMMARY | 2025-10-03 14:07 | XMS_ITS | Encounter Summary ---
Author Organization [facility] Address [address] [place] [address] Phone Care Team Providers Care It Security Specialist Name Role Phone Yamilka Ruiz MD Primary Care Provider [phone] Encounter Details Date Type Department Care Team (Late st Contact Info) Description 01/04/2021 Ancillary Orders [facility],Outside Imaging [address] [place] [address] System, Provider [place] In, [place] [address] Social History Tobacco Use Types Packs/Day Years [...] encounter Results * Mammogram Outside (No Interpretation) (02/05/2019 12:00 AM EDT) Narrative SYSTEMGENERATED, DOCUMENTATION - 01/04/2021 12:05 PM EDT This study is for PACS storage only and not for interpretation. us Provider Not In System PhD IMG OUTSIDE IMAGING W /OUT INTERPRETATION Final Result documented in this encounter Visit Diagnoses Not on filedocumented in this encounter Care Teams It Security Specialist Relationship Specialty Start Date End Date Yamilka Ruiz MD [address] [facility] [place] [address] PCP - General Internal Medicine 01/02/21 documented as of this encounter Additional Source Comments The information contained in this document represents components of the legal health record. It is not the complete legal health record.[facility]
--- OUTSIDE RECORDS SUMMARY | 2025-10-03 14:07 | XMS_ITS | Encounter Summary ---
Author Organization [facility] Address [address] [place] [address] Phone Care Team Providers Care Therapeutic Specialist Name Role Phone Yamilka Ruiz MD Primary Care Provider [phone] Encounter Details Date Type Department Care Team (Late st Contact Info) Description 01/04/2021 Ancillary Orders [facility],Outside Imaging [address] [place], [place] [id number] System, Provider [place] In, [place] [address] Social History Tobacco Use Types Packs/Day Years [...] encounter Results * Mammogram Outside (No Interpretation) (10/18/2020 12:05 AM EST) Narrative SYSTEMGENERATED, DOCUMENTATION - 01/04/2021 12:03 PM EDT This study is for PACS storage only and not for interpretation. us Provider Not In System PhD IMG OUTSIDE IMAGING W /OUT INTERPRETATION Final Result documented in this encounter Visit Diagnoses Not on filedocumented in this encounter Care Teams Therapeutic Specialist Relationship Specialty Start Date End Date Yamilka Ruiz MD [address] [place] [address] PCP - General Internal Medicine 01/02/21 documented as of this encounter Additional Source Comments The information contained in this document represents components of the legal health record. It is not the complete legal health record.[facility]
--- OUTSIDE RECORDS SUMMARY | 2025-10-03 14:07 | XMS_ITS | Clinical Summary ---
Author Organization [facility] Prior to 03/11/25 Address [address] [place] [address] Care Team Providers Care 4Th Grade Teacher Name Role Phone Unavailable Primary Care [...] f 2) 2017 COVID-19 Vaccine (3 - 2024-2 6 season) 2025 03/30/2021, 03/09/2021 Influenza Vaccine (#1) 2025 DTap / Tdap / Td (2 - Td or Tdap) 03/27/2031 03/27/2021 Pneumococcal Vaccine Aged Out No long er eligible based on patient's age to complete this topic RSV Ped < 20 months Aged Out No longe r eligible based on patient's age to complete this topic Neda Cyr TPL/AUTO Self 1965 [address] [place] [id number] Neda Cyr TPL/AUTO Self 1965 [address] [place] [id number]
--- OUTSIDE RECORDS SUMMARY | 2025-10-03 14:07 | XMS_ITS | Encounter Summary ---
Author Organization [facility] Address [address] [place] [phone] Phone Care Team Providers Care Crayon Sawyer Name Role Phone Yamilka Ruiz MD Primary Care Provider [phone] Encounter Details Date Type Department Care Team (Late st Contact Info) Description 01/04/2021 Ancillary Orders [facility],Outside Imaging [address] [place] [address] System, Provider Not In, [place] [address] Social History Tobacco Use Types Packs/Day Years [...] encounter Results * Mammogram Outside (No Interpretation) (10/26/2020 12:05 AM EST) Narrative SYSTEMGENERATED, DOCUMENTATION - 01/04/2021 11:58 AM EDT This study is for PACS storage only and not for interpretation. us Provider Not In System PhD IMG OUTSIDE IMAGING W /OUT INTERPRETATION Final Result documented in this encounter Visit Diagnoses Not on filedocumented in this encounter Care Teams Crayon Sawyer Relationship Specialty Start Date End Date Yamilka Ruiz MD [address] [place] [address] PCP - General Internal Medicine 01/02/21 documented as of this encounter Additional Source Comments The information contained in this document represents components of the legal health record. It is not the complete legal health record.[facility]
--- OUTSIDE RECORDS SUMMARY | 2025-10-03 14:07 | XMS_ITS | Encounter Summary ---
Author Organization [facility] Address [address] [place] [address] Phone Care Team Providers Care Director Of Transportation Name Role Phone Yamilka Ruiz MD Primary Care Provider [phone] Encounter Details Date Type Department Care Team (Late st Contact Info) Description 01/04/2021 Ancillary Orders [facility],Outside Imaging [address] [place], [place] [id number] System, Provider [place] In, [place] [address] Social History Tobacco Use Types Packs/Day Years [...] encounter Results * Mammogram Outside (No Interpretation) (11/12/2020 12:05 AM EST) Narrative SYSTEMGENERATED, DOCUMENTATION - 01/04/2021 11:53 AM EDT This study is for PACS storage only and not for interpretation. us Provider Not In System PhD IMG OUTSIDE IMAGING W /OUT INTERPRETATION Final Result documented in this encounter Visit Diagnoses Not on filedocumented in this encounter Care Teams Director Of Transportation Relationship Specialty Start Date End Date Yamilka Ruiz MD [address] [facility] [address] PCP - General Internal Medicine 01/02/21 documented as of this encounter Additional Source Comments The information contained in this document represents components of the legal health record. It is not the complete legal health record.[facility]
--- OUTSIDE RECORDS SUMMARY | 2025-10-03 14:07 | XMS_ITS | Encounter Summary ---
Author Organization [facility] Address [address] [place] [address] Phone Care Team Providers Care Disabilities Caregiver Name Role Phone Yamilka Ruiz MD Primary Care Provider [phone] Encounter Details Date Type Department Care Team (Late st Contact Info) Description 01/04/2021 Ancillary Orders [facility],Outside Imaging [address] [place] [address] System, Provider [place] In, [place] [address] Social History Tobacco Use Types Packs/Day Years [...] encounter Results * Mammogram Outside (No Interpretation) (03/13/2015 12:00 AM EDT) Narrative SYSTEMGENERATED, DOCUMENTATION - 01/04/2021 11:51 AM EDT This study is for PACS storage only and not for interpretation. us Provider Not In System PhD IMG OUTSIDE IMAGING W /OUT INTERPRETATION Final Result documented in this encounter Visit Diagnoses Not on filedocumented in this encounter Care Teams Disabilities Caregiver Relationship Specialty Start Date End Date Yamilka Ruiz MD [address] [facility] [place] [address] PCP - General Internal Medicine 01/02/21 documented as of this encounter Additional Source Comments The information contained in this document represents components of the legal health record. It is not the complete legal health record.[facility]
--- OUTSIDE RECORDS SUMMARY | 2025-10-03 14:07 | XMS_ITS | Clinical Summary ---
Author Organization [facility] Address [address] [place] [address] Care Team Providers Care Customer Service Trainer Name Role Phone Unavailable Primary Care Provider [...] of 2) 2017 COVID-19 Vaccine (1 - 2024- season) 2025 RSV Vaccine 50 years and old er and Patients (1 - 1-dose 75+ series) 2042
--- OUTSIDE RECORDS SUMMARY | 2025-10-03 14:07 | XMS_ITS | Encounter Summary ---
Author Organization [facility] Address [address] [place] [address] Phone Care Team Providers Care Compliance Administrator Name Role Phone Yamilka Ruiz MD Primary Care Provider [phone] Encounter Details Date Type Department Care Team (Late st Contact Info) Description 01/04/2021 Ancillary Orders [facility],Outside Imaging [address] [place], [place] [phone] System, Provider Not In, [place] [address] Social History Tobacco Use Types Packs/Day Years [...] encounter Results * Mammogram Outside (No Interpretation) (09/24/2020 12:00 AM EST) Narrative SYSTEMGENERATED, DOCUMENTATION - 01/04/2021 12:04 PM EDT This study is for PACS storage only and not for interpretation. us Provider Not In System PhD IMG OUTSIDE IMAGING W /OUT INTERPRETATION Final Result documented in this encounter Visit Diagnoses Not on filedocumented in this encounter Care Teams Compliance Administrator Relationship Specialty Start Date End Date Yamilka Ruiz MD [address] [facility] [place] [address] PCP - General Internal Medicine 01/02/21 documented as of this encounter Additional Source Comments The information contained in this document represents components of the legal health record. It is not the complete legal health record.[facility]
--- OUTSIDE RECORDS SUMMARY | 2025-10-03 14:07 | XMS_ITS | Clinical Summary ---
Author Organization [facility] [address] [facility] Address [address] [facility] [place] [address] Phone Care Team Providers Care Hammer Heater Name Role Phone Dorian Monteiro MD Primary Care Provider [phone] Allergies Active Allergy Reactions Criticality Noted Date Comments Iodinated Contrast Media 04/29/2021 Penicillins Rash Medium 02/13/2021 Medications anastrozole (ARIMIDEX) 1 mg Take 1 mg by mouth daily. Active blood-glucose meter (BLOOD GLUCOSE MONITORING [facility]) Use to check blood sugar once a day 4 Active LOW-DOSE ASPIRIN ORAL Take 81 mg by mouth daily. Active multivitamin (MULTIPLE VITAMINS ORAL) Take by mouth daily. Active clobetasoL (TEMOVATE) 0.05 % ointment APPLY 1 FINGERTIP UNIT TOPICALLY TO AFFECTED AREA AT NIGHT X4 WEEKS THEN EVERY OTHER NIGHT X4 WEEKS 90 g 2 5 Active atenoloL (TENORMIN) 25 mg tablet [...] 18 each 2 5 02/23/20 26 Active metFORMIN XR (GLUCOPHAGE-XR) 500 mg 24 hr tablet Take 1 tablet (500 mg total) by mouth 1 (one) time each day with breakfast. 90 tablet 1 5 Active Active Problems Problem Noted Date Diagnosed Date Malignant neoplasm of left female breast 025 Mild intermittent asthma 09/28/2024 LSC (lichen simplex [...] of insulin 11/20/2021 Gastroesophageal reflux disease without esophagi tis 04/29/2021 Primary hypertension 04/29/2021 Immunizations Immunization Administration Dates Next Due Pfizer SARS-CoV-2 COVID-19, mRNA, LNP-S, preservative free 03/30/2021,03/09/2021 Tdap Tetanus diptheria acell ular pertussis (Boostrix; Adacel) 7yo and older 03/27/2021 Surgical History Surgery Date Site/Laterality Comments BREAST LUMPECTOMY 11/12/2020 Left PROCEDURE: HISTORICAL BREAST LUMPECTOMY; COMMENT: [facility] OTHER SURGICAL HISTORY PROCEDURE: HISTORICAL PARATHYROID SURGERY APPENDECTOMY PROCEDURE: [place] APPENDECTOMY COLONOSCOPY 01/18/2021 PROCEDURE: HISTORICAL COLONOSCOPY; COMMENT: three polyps, diverticulosis, internal hemorrhoids OTHER SURGICAL HISTORY 11/29/2020 PROCEDURE: HISTORY OTHER; COMMENT: wide excision left breast carcinoma Dr. Garzon Medical History Medical History Date Comments GERD (gastroesophageal reflux disease) DX:GERD (gastroesophageal reflux disease) Hypertension 04/29/2021 DX:Hypertension Invasive ductal carcinoma of breast, left ([facility] V24, [facility] V28) 02/13/2021 DX:Invasive ductal carcinom a of breast, left ([facility]); COMMENT: S/p lumpectomy and radiation. Dx August 2020, on Letrozole Diverticulosis 04/29/2021 DX:Diverticulosi s; COMMENT: CN 01/18/21 Hyperparathyroidism ([facility] V24) 03/27/2021 DX:Hyperparathyroidism ([facility]); COMMENT: S/p surgery, 2 removed Internal hemorrhoids [...] Sexual Orientation Not on file Obstetrics History * This document contains information received from the source organization and may not represent a complete record from that organization. Para Term AB IAB SAB Ectopic Multiple Livin g Live Births 6 3 3 3 3 Date Outcome GA Total Labor Labor/2nd/3rd Weight Sex Type Anes PTL Jessie A1 A5 Name Clin Vag-S pont Living Vag-S pont Living Vag-S pont Living Last Filed Vital Signs Vital Sign Reading [...] 02/22/2025 2:32 PM EDT Plan of Treatment Health Maintenance Due Date Last Done Comments Diabetes: Annual Foot Exam 1977 Hepatitis B Vaccines (1 of 3 - 19+ 3-dose series) 1986 Pneumococcal Vaccine: 50+ Years (1 of 2 - PCV) 1986 Zoster Vaccines (1 of 2) 1986 RSV Immunization Adult Patients (1 - Risk 50-74 years 1-dose series) 2017 HIV Screening 09/13/2022 Hepatitis C Screening 09/13/2022 Medicare Annual Wellness Visit 09/13/2022 Osteoporosis Screening (Bone Density Screening) 09/13/2022 Social Influencers of Health Screening 09/13/2022 Depression Screening 10/12/2024 05/26/2024 Diabetes: Annual Retina Eye Exam 02/16/2025 02/17/2024 COVID-19 Vaccine ( season) 2025 10/15/2021, 03/30/2021, 03/09/2021, Additional history exists Influenza Vaccine (#1) 2025 Diabetes: Blood Sugar [...] complication, without long-term current use of insulin ([facility] V24, [facility] V28) Primary hypertension HEMOGLOBIN A1C Routine 01/17/2025 9:59 AM EDT Type 2 diabetes mellitus without complication, without long-term current use of insulin ([facility] V24, [facility] V28) MICROALBUMIN CREATININE URINE RATIO Routine 09/28/2024 11:26 AM EST Anxiety and depression Type 2 diabetes mellitus without complication, without long-term current use of insulin ([facility] V24, [facility] V28) Primary hypertension Mild intermittent [...] LAB CHEMISTRY METHOD 01/17/2025 9:18 PM EDT [facility] Mean Bld Glu Estim. 157 mg/dL LAB CHEMISTRY METHOD 01/17/2025 9:18 PM EDT [facility] Blood Venous blood specimen / Unknown Venipuncture / Unknown 01/17/2025 9:59 AM EDT 01/17/2025 9:59 AM EDT Karen DUPREE LAB BLOOD ORDERABLES Fin al Result [facility] [address] [place] [address], [place] [phone] * (ABNORMAL) Comprehensive metabolic panel (01/17/2025 9:59 [...] [facility] Comment:Calculation based on the Chronic [...] LAB CHEMISTRY METHOD 01/17/2025 3:06 PM EDT [facility] Alkaline Phosphatase 84 42 - 121 unit/L LAB CHEMISTRY METHOD 01/17/2025 3:06 PM EDT [facility] Total Protein 8.3(H) 6.0 - 8.0 g/dL LAB CHEMISTRY METHOD 01/17/2025 3:06 PM EDT [facility] Albumin 4.1 3.2 - 5.0 g/dL LAB CHEMISTRY METHOD 01/17/2025 3:06 PM EDT [facility] Total Bilirubin 0.4 0.0 - 1.4 mg/dL LAB CHEMISTRY METHOD 01/17/2025 3:06 PM EDT [facility] Blood Venous blood specimen / Unknown Venipuncture / Unknown 01/17/2025 9:59 AM EDT 01/17/2025 9:59 AM EDT Karen DUPREE LAB BLOOD ORDERABLES Fin al Result [facility] [address] [place] [address], * Microalbumin creatinine urine ratio (09/28/2024 11:26 AM EST) Creatinine, Urine 165.0 mg/dL LAB CHEMISTRY METHOD 09/28/2024 3:10 PM EST [facility] Microalb, Ur 15.5 0.0 - 29.0 mg/L LAB CHEMISTRY METHOD 09/28/2024 3:10 PM EST [facility] Microalb/Creat Ratio 9 <30 mg/g creat LAB CHEMISTRY METHOD 09/28/2024 3:10 PM EST [facility] Urine Urine specimen obtained by clean catch procedure / Unknown Non-blood Collection / Unknown 09/28/2024 11:26 AM EST 09/28/2024 11:26 AM EST us Karen Rena Braydon Betancourt PA LAB URINE ORDERABLES Fin al Result [facility] [address] [place] [address], * Depression Screening (05/26/2024) [facility] Depression Screening abstracted Historical Provider HEALTH MAINTENANCE Final Result * Diabetes Eye Exam (02/17/2024) [facility] Diabetes: Annual Retina Eye Exam abstracted [facility] Provider HEALTH MAINTENANCE Final Result * (ABNORMAL) Lipid panel (12/22/2023) [facility] LDL/HDL Ratio 4 0 - 4 Triglycerides 125 0 - 150 mg/dL Cholesterol 214(A) 0 - 200 mg/dL HDL 54 >=40 mg/dL LDL Cholesterol 135(A) 0 - 100 mg/dL Blood Venous blood specimen / Unknown Result [facility] Provider LAB BLOOD ORDERABLES Beatriz l Result * Cervical Cancer Screening: HPV (06/11/2021) [facility] Cervical Cancer Screening: HPV normal, abstracted Result [facility] Provider HEALTH MAINTENANCE Final Result * Colonoscopy (01/18/2021) [facility] Colonoscopy no interpretation , abstracted Anatomical Region Laterality Modality Other Historical Provider HEALTH MAINTENANCE Final Result from Last 3 Months or Most Recently Relevant to Health Maintenance Insurance MEDICARE [place]ICAID - [place] Care Teams Hammer Heater Relationship Specialty Start Date End Date Dorian Monteiro MD [address] [place] [address] PCP - General Internal Medicine 04/15/22
--- OUTSIDE RECORDS SUMMARY | 2025-10-03 14:07 | XMS_ITS | Encounter Summary ---
Author Organization [facility] Address [address] [place] [id number] Phone Care Team Providers Care Sql Data Analyst Name Role Phone Yamilka Ruiz MD Primary Care Provider [phone] Encounter Details Date Type Department Care Team (Late st Contact Info) Description 01/04/2021 Ancillary Orders [facility],Outside Imaging [address] [place] [address] System, Provider Not In, [place] [address] Social History Tobacco Use Types Packs/Day Years [...] Results * US Breast Outside (No Interpretation) (10/18/2020 12:00 AM EST) Narrative SYSTEMGENERATED, DOCUMENTATION - 01/04/2021 12:02 PM EDT This study is for PACS storage only and not for interpretation. us Provider Not In System PhD IMG OUTSIDE IMAGING W /OUT INTERPRETATION Final Result documented in this encounter Visit Diagnoses Not on filedocumented in this encounter Care Teams Sql Data Analyst Relationship Specialty Start Date End Date Yamilka Ruiz MD [address] [place] [address] PCP - General Internal Medicine 01/02/21 documented as of this encounter Additional Source Comments The information contained in this document represents components of the legal health record. It is not the complete legal health record.[facility]
== END 2025-10-03 13:45 | disposition home or self-care (01) ==
PROVIDERS: Visit Provider Surgery
DX: C50.412 Malignant neoplasm of upper-outer quadrant of left female breast (principal); Z17.0 Estrogen receptor positive status [ER+]; C50.912 Malignant neoplasm of unspecified site of left female breast; N64.4 Mastodynia
CPT/HCPCS: 99213

== ENCOUNTER → 2025-10-03 13:04 | Outpatient (BNVA) | payer MEDICARE, MEDICAID, SELFPAY | PROVIDERS: Visit Provider Surgery | DX: C50.412 Malignant neoplasm of upper-outer quadrant of left female breast (principal); Z17.0 Estrogen receptor positive status [ER+]; C50.912 Malignant neoplasm of unspecified site of left female breast; N64.4 Mastodynia | CPT/HCPCS: 99212 ==